=== PATIENT | female | born 1980 | race Caucasian/White ===

== ENCOUNTER 2020-10-09 08:08 | Inpatient (IN) | payer OTHER, SELFPAY ==
[2020-10-09] VITALS (23 sets, daily range): BP systolic 94–117; BP diastolic 50–77; PULSE 86–112; RESP 16–26; TEMP 36.4–36.8; O2SAT 96–100; BMI 32.3
--- NOTE | ~2020-10-09 | US_ITS ---
US right upper quadrant INDICATION: Right upper quadrant abdominal pain PROCEDURE: Realtime right upper abdominal ultrasound. COMPARISON: 07/08/2012 FINDINGS: The pancreas is normal without focal mass or pancreatic ductal dilation. Liver echotexture is diffusely increased, consistent with fatty infiltration. No focal hepatic mass identified. There is normal directional flow in the portal vein. Gallbladder wall is thickened with pericholecystic fluid. No definite gallstones identified. Common bile duct measures 3 mm. IMPRESSION: 1: Thickened gallbladder wall with pericholecystic fluid. No definite gallstones. Consider acalculous cholecystitis in the appropriate clinical setting. 2: Hepatic steatosis. Reviewed, dictated and finalized at location A. IMPRESSION: 1: Thickened gallbladder wall with pericholecystic fluid. No definite gallstone s. Consider acalculous cholecystitis in the appropriate clinical setting. 2: Hepatic steatosis.
--- NOTE | ~2020-10-09 | MR_ITS ---
EXAMINATION: MR MRCP wo con/w 3D wo ind pp DATE: 10/10/2020 17:50 INDICATION: Hyperbilirubinemia. Cirrhosis. TECHNIQUE: Magnetic resonance imaging (MRI) of the abdomen was performed without intravenous contrast . Sequences included coronal T2-weighted SS-FSE, coronal T2-weighted FS SS-FSE, coronal T2-weighted F S FIESTA, axial T2-weighted FS FIESTA, axial T2-weighted FIESTA, sagittal T2-weighted SS-FSE, axial T 1-weighted dual-echo FSPGR, axial T2-weighted SS-FSE, axial T1-weighted LAVA, axial T2-weighted STIR FSE. Thick-slab T2-weighted FRFSE-XL images were obtained for magnetic resonance cholangiopancreatogr aphy (MRCP). Rotating maximum intensity projection 3-D reconstructions of the volumetric data were cr eated by the technologist. COMPARISON: Comparison dated 10/09/[address] dated 03/10/2018 FINDINGS: ABDOMEN MRI: Diffuse hepatic steatosis. Hepatosplenomegaly. The spleen measures 17.5 cm in maximal length. The rig ht hepatic lobe measures 25.6 cm in maximal craniocaudal length. There is mild edematous wall thicken ing of the gallbladder which measures up to 4-5 mm in wall thickness. No gallbladder dilation or chol elithiasis. The pancreas is normal with no pancreatic ductal dilation. Bilateral adrenal glands and k idneys are normal. Visualized bowels are unremarkable with no wall thickening or obstruction. No path ologically enlarged abdominal lymphadenopathy. Mild lumbar levocurvature with mild spondylosis. Lexis l bone marrow signal throughout. ABDOMEN MRCP: Common bile duct measure up to 5 mm in maximal diameter which is normal. No choledocholithiasis. No i ntrahepatic biliary ductal dilation. IMPRESSION: 1. Hepatosplenomegaly with diffuse hepatic steatosis. 2. Gallbladder wall thickening measuring 4-5 mm without evident cholelithiasis/choledocholithiasis li paris related to reported chronic liver disease. This could also result from, renal disease or other g eneralized edema forming states. Differential includes acute cholecystitis although there is no evide nt cholelithiasis or dani gallbladder dilation to more specifically suggest this. Reviewed, dictated and finalized at location A. IMPRESSION: 1. Hepatosplenomegaly with diffuse hepatic steatosis. 2. Gallbladder wall thickening measuring 4-5 mm without evident cholelithiasis/ choledocholithiasis likely related to reported chronic liver disease. This coul d also result from, renal disease or other generalized edema forming states. Di fferential includes acute cholecystitis although there is no evident cholelithi asis or dani gallbladder dilation to more specifically suggest this.
[2020-10-09 08:55] LABS: Basophils Percent Auto 0.4 % (0.2-1.2); Eosinophils Percent Auto 0.1 % (0-4.4); Hematocrit 22.9 % (37.0-47.0); Immature Granulocyte Absolute 0.31 K/mm3 (0.00-0.031); Immature Granulocyte Percent A 2.8 % (0-0.5); Lymphocytes Absolute Auto 1.34 K/mm3 (0.9-3.2); Lymphocytes Percent Auto 12.2 % (18.3-44.2); Mean Corpuscular HGB Conc 29.3 g/dl (32-36); Mean Corpuscular Hemoglobin 30.6 pg (26-34); Mean Corpuscular Volume 104.6 fl (80-100); Mean Platelet Volume 11.2 fl (7.4-10.4); Monocytes Absolute Auto 1.5 K/mm3 (0.1-0.6); Monocytes Percent Auto 13.5 % (2.6-8.5); Neutrophils Absolute Auto 7.8 K/mm3 (1.3-6.7); Nucleated Red Blood Cells Absolute Auto 0.1 K/mm3 (0.0-0.012); Nucleated Red Blood Cells Perc 0.5 % (0.0-0.2); Platelet Count Result 214 k/mm3 (150-375); Red Blood Count 2.19 M/mm3 (4.2-5.4); Red Cell Distribution Width 26.5 % (11.5-14.5)
[2020-10-09 08:57] LABS: Hemoglobin 6.7 g/dL (12.0-15.0)
[2020-10-09 09:01] LABS: Ammonia 57 umol/L (9-30)
[2020-10-09 09:04] LABS: INR 1.3; Prothrombin Time 16.3 Seconds (11.1-14.7)
[2020-10-09 09:28] LABS: Alanine Aminotransferase 54 U/L (4-35); Alkaline Phosphatase 306 U/L (38-126); Anion Gap 19 mmol/L (8-16); Aspartate Amino Transferase 245 U/L (14-36); Bilirubin,Total 24.9 mg/dL (0.2-1.3); Blood Urea Nitrogen 40 mg/dL (7-17); Calcium 8.3 mg/dL (8.4-10.2); Carbon Dioxide 20 mmol/L (22-30); Chloride 98 mmol/L (98-107); Estimated CRCL calculation 33 ml/min; Estimated Glomerular Filt Rate 24; Glucose 107 mg/dL (65-110); Potassium 3.4 mmol/L (3.4-5.0); Sodium 137 mmol/L (137-145)
[2020-10-09] MEDS: ONDANSETRON INJ 4 MG/2 ML VIAL IV PUSH ×2 (10:02→17:46)
[2020-10-09] MEDS: MORPHINE SULFATE (*CRX) 4 MG/ML INJ IV PUSH (10:03)
[2020-10-09] MEDS: PANTOPRAZOLE SODIUM IV 40 MG VIAL 80 MG IV PUSH (10:04)
[2020-10-09] MEDS: SODIUM CHLORIDE 0.9% IV 250 ML 30 ML IV CONT ×2 (10:05→23:59)
--- NOTE | 2020-10-09 10:08 | ED.GIBLEED ---
HPI - GI Bleed General Chief complaint: GI Bleed Stated complaint: gi bleed, jaundice Time Seen by Provider: 10/09/20 08:13 History of Present Illness HPI Narrative: Patient is a 40-year-old female who presents ER with concerns for GI bleed. Reports yesterday she vomited a couple small blood clots. This morning she vomited a large blood clot with some gross blood. She reports has been having dark black stools for last 5 days. She reports prior to this she had drank some alcohol. Since then she has turned yellow. She has known history of liver disease related to hepatitis C. She sees a GI physician at [facility]. Patient denies history of esophageal varices. Patient has been having some epigastric and right upper quadrant pain related to her symptoms. Related Data Home Medications Medication Instructions Recorded Confirmed omeprazole 40 mg capsule,delayed 40 mg PO DAILY 08/25/19 10/09/20 release dicyclomine 10 mg capsule 10 mg PO QID PRN cap 04/25/20 10/09/20 ondansetron 4 mg PO Q6H PRN 10/09/20 10/09/20 Allergies Allergy/AdvReac Type Severity Reaction Status Date / Time Penicillins Allergy Intermediate rash Verified 10/09/20 15:22 Review of Systems Review of Systems: All systems reviewed & are unremarkable except as noted in HPI and below Constitutional: Constitutional: Denies chills, Reports fatigue and Denies fever(s) ENT: Denies nasal congestion and Denies sore throat Cardiovascular: Cardiovascular: Denies chest pain, Denies rapid heart rate and Denies radiating jaw, neck or arm pain Respiratory: Respiratory: Denies cough and Denies dyspnea Gastrointestinal: Gastrointestinal: Reports abdominal pain, Reports nausea and Reports vomiting Comments: Dark black stools, hematemesis. 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 HEAD: Normocephalic, atraumatic. EYES: PERRL and EOMI. scleral icterus noted. ENT: Mucous membranes moist. CHEST: Clear to auscultation. No respiratory distress. HEART: Tachycardic and regular. Normal peripheral pulses. ABDOMEN: Soft, nontender, nondistended. Dark black stool as briskly guaiac positive. No gross blood on BALTAZAR. EXTREMITIES: Normal range of motion. No edema. SKIN: Warm, dry, diffuse jaundice. NEURO: Alert and oriented x3. PSYCH: Normal mood and affect. Course Course Emergency Course: Patient informed of results. She is receiving 2 units of blood. I have discussed the case with Dr. Davis with GI at [facility]. He recommends ultrasound of the gallbladder as well as a EGD. At this time without knowing if patient has varices patient will need to go to the ICU. Dr. Ni accepted to [facility] MICU for Dr. Reagan. Recommends patient receive Rocephin 2 g daily as well as albumin 25% 25 g every 6 hours. Patient is accepted over there and should patient be determined stable for floor they should be contacted as they may be able to find a bed sooner. I discussed the case with Dr. Pacheco and the patient is currently on
[2020-10-09] MEDS: OCTREOTIDE ACETATE 50 MCG/ML VIAL IV PUSH (11:33)
[2020-10-09] MEDS: METOCLOPRAMIDE HCL INJ 10 MG/2 ML VIAL IV PUSH (12:03)
[2020-10-09] MEDS: ALBUMIN HUMAN 25% 25 GM/100 ML 100 ML IVPB ×3 (12:04→23:59)
--- NOTE | 2020-10-09 12:44 | WPDGIPROGNO ---
Progress Note: A&P Additional Plan UGI Bleed->EGD #[id number] Subjective Date/time seen: 10/09/20 12:44 Objective Data Vital Signs Vital Signs: Vital Signs - 24 hr 10/09/20 08:11 10/09/20 09:26 10/09/20 10:09 Temperature 36.6 C 36.7 C Pulse Rate 112 H 110 H 105 H Respiratory Rate 20 20 20 Blood Pressure 110/55 L 107/60 117/53 L Pulse Oximetry 100 100 99 10/09/20 10:12 10/09/20 10:22 10/09/20 10:24 Temperature 36.7 C 36.7 C Pulse Rate 103 H 109 H 109 H Respiratory Rate 20 20 20 Blood Pressure 117/53 L 99/50 L 99/50 L Pulse Oximetry 99 98 98 10/09/20 10:45 10/09/20 11:22 10/09/20 12:07 Temperature 36.8 C Pulse Rate 104 H 105 H 99 Respiratory Rate 20 20 20 Blood Pressure 106/63 103/53 L 113/64 Pulse Oximetry 96 98 100 10/09/20 12:17 10/09/20 12:18 10/09/20 12:32 Temperature 36.6 C 36.6 C Pulse Rate 94 87 98 Respiratory Rate 19 20 20 Blood Pressure 113/64 113/64 101/62 Pulse Oximetry 100 99 100 10/09/20 12:33 Temperature 36.6 C Pulse Rate 91 Respiratory Rate 20 Blood Pressure 101/62 Pulse Oximetry 100 Intake/Output Intake/Output: Intake & Output 10/06/20 10/07/20 10/08/20 10/09/20 23:59 23:59 23:59 23:59 Intake Total 700 Balance 700 Meds/Results Medications: Active Medications Generic Name Dose Route Start Last Admin Trade Name Freq PRN Reason Stop Dose Admin Sodium Chloride 250 mls @ 30 mls/hr 10/09/20 08:57 10/09/20 12:10 Normal Saline Iv IV CONT 10/09/20 17:16 Infused .Q8H20M STA Infusion Pantoprazole Sodium 80 mg/ 500 mls @ 50 mls/hr 10/09/20 09:20 10/09/20 10:45 Dextrose IV CONT 10/09/20 19:19 50 mls/hr .Q10H STA Administration Octreotide Acetate 500 mcg/ 100 mls @ 10 mls/hr 10/09/20 11:00 10/09/20 11:33 Dextrose IV CONT 50 mcg/hr .Q10H SUKHDEV 10 mls/hr Administration 50 MCG/HR Ceftriaxone Sodium 2 gm in 100 mls @ 200 mls/hr 10/10/20 09:00 Rocephin 2 Gm/D5w 100 Ml IVPB DAILY SUKHDEV Albumin Human 100 mls @ 60 mls/hr 10/09/20 12:00 Albutein IVPB Q6HR SUKHDEV Albumin Human 100 mls @ 60 mls/hr 10/09/20 11:34 10/09/20 12:04 Albutein IVPB 10/09/20 13:13 60 mls/hr ONCE ONE Administration Ondansetron HCl 4 mg 10/09/20 12:22 Ondansetron Inj 4 Mg/2 Ml Vial IV PUSH Q4H PRN Nausea Radiology Results: ITS Impressions Upper Quadrant Ultrasound 10/09/20 12:03 IMPRESSION: 1: Thickened gallbladder wall with pericholecystic fluid. No definite gallstones. Consider acalculous cholecystitis in the appropriate clinical setting. 2: Hepatic steatosis. Labs Labs: Laboratory Results - last 24 hr 10/09/20 10/09/20 10/09/20 08:23 08:23 08:23 WBC 11.0 H RBC 2.19 L Hgb 6.7 L* Hct 22.9 L MCV 104.6 H MCH 30.6 MCHC 29.3 L RDW 26.5 H Plt Count 214 MPV 11.2 H Immature Gran % (Auto) 2.8 H Neut % (Auto) 71.0 Lymph % (Auto) 12.2 L [place] % (Auto) 13.5 H Eos % (Auto) 0.1 Baso % (Auto) 0.4 Lymph # (Auto) 1.34 [place] # (Auto) 1.5 H Eos # (Auto) 0.0 Baso # (Auto) 0.0 Abs Immat Gran (auto) 0.31 H Absolute Neuts (auto) 7.8 H Absolute Nucleated RBC 0.1 H Nucleated RBC % 0.5 H PT 16.3 H INR 1.3 APTT 39.0 H Sodium 137 Potassium 3.4 Chloride 98 Carbon Dioxide 20 L Anion Gap 19 H BUN 40 H Creatinine 2.30 H Estim Creat Clear Calc 33 Estimated GFR 24 L Glucose 107 Calcium 8.3 L Total Bilirubin 24.9 H AST 245 H ALT 54 H Alkaline Phosphatase 306 H Ammonia Total Protein 7.0 Albumin 3.0 L Blood Type Antibody Screen Crossmatch 10/09/20 10/09/20 08:23 08:23 WBC RBC Hgb Hct MCV MCH MCHC RDW Plt Count MPV Immature Gran % (Auto) Neut % (Auto) Lymph % (Auto) [place] % (Auto) Eos % (Auto) Baso % (Auto) Lymph # (Auto) [place] # (Auto) Eos # (Auto) Baso # (Auto) Abs Immat Gran
--- NOTE | 2020-10-09 13:30 | WPDANESEPP ---
Anes - Eval Pre Procedure Procedure: Operation Date: 10/09/20 13:20 Proposed Procedures p Esophagogastroduodenoscopy - Ramón Pacheco MD Date/Time: 10/09/20 13:30 Pre Op Diagnosis: gi bleed, jaundice Patient Data Age: 40 Gender: F Height: 1.63 m Weight: 89.5 kg Last Vital Signs Temp 36.6 C 10/09/20 12:33 Pulse 91 10/09/20 12:33 Resp 20 10/09/20 12:33 BP 101/62 10/09/20 12:33 Pulse Ox 100 10/09/20 12:33 Allergies Allergy/AdvReac Type Severity Reaction Status Date / Time Penicillins Allergy Intermediate rash Verified 10/09/20 08:18 Home Medications Medication Instructions Recorded Confirmed Type hydroxyzine HCl 50 mg tablet 50 mg PO TID PRN #90 tablet 05/04/19 Rx diclofenac sodium 50 mg 50 mg PO TID PRN #45 tablet 08/25/19 08/25/19 Rx tablet,delayed release omeprazole 40 mg capsule,delayed 40 mg PO DAILY 08/25/19 History release dicyclomine 10 mg capsule 10 mg PO QID PRN cap 04/25/20 History azithromycin 250 mg tablet See Rx Instructions PO .COMPLEX #6 05/17/20 05/17/20 Rx tablet fluticasone propionate 50 1 spray INTRANASAL DAILY #9.9 ml 05/17/20 05/17/20 Rx mcg/actuation nasal spray,suspension loratadine 10 mg tablet 10 mg PO DAILY PRN #30 tablet 05/17/20 05/17/20 Rx ondansetron 4 mg disintegrating 4 mg PO Q8H PRN #14 tablet 05/17/20 05/17/20 Rx tablet Laboratory Tests 10/09/20 10/09/20 10/09/20 08:23 08:23 08:23 WBC 11.0 K/mm3 H K/mm3 (4.5-10.0) RBC 2.19 M/mm3 L M/mm3 (4.2-5.4) Hgb 6.7 g/dL L* g/dL (12.0-15.0) Hct 22.9 % L % (37.0-47.0) MCV 104.6 fl H fl (80-100) MCH 30.6 pg pg (26-34) MCHC 29.3 g/dl L g/dl (32-36) RDW 26.5 % H % (11.5-14.5) Plt Count 214 k/mm3 k/mm3 (150-375) MPV 11.2 fl H fl (7.4-10.4) Immature Gran % (Auto) 2.8 % H % (0-0.5) Neut % (Auto) 71.0 % % (45.5-73.1) Lymph % (Auto) 12.2 % L % (18.3-44.2) [place] % (Auto) 13.5 % H % (2.6-8.5) Eos % (Auto) 0.1 % % (0-4.4) Baso % (Auto) 0.4 % % (0.2-1.2) Lymph # (Auto) 1.34 K/mm3 K/mm3 (0.9-3.2) [place] # (Auto) 1.5 K/mm3 H K/mm3 (0.1-0.6) Eos # (Auto) 0.0 K/mm3 K/mm3 (0-0.3) Baso # (Auto) 0.0 K/mm3 K/mm3 (0.0-0.1) Abs Immat Gran (auto) 0.31 K/mm3 H K/mm3 (0.00-0.031) Absolute Neuts (auto) 7.8 K/mm3 H K/mm3 (1.3-6.7) Absolute Nucleated RBC 0.1 K/mm3 H K/mm3 (0.0-0.012) Nucleated RBC % 0.5 % H % (0.0-0.2) PT 16.3 Seconds H Seconds (11.1-14.7) INR 1.3 APTT 39.0 SECONDS H SECONDS (22.3-36.8) Sodium 137 mmol/L mmol/L (137-145) Potassium 3.4 mmol/L mmol/L (3.4-5.0) Chloride 98 mmol/L mmol/L (98-107) Carbon Dioxide 20 mmol/L L mmol/L (22-30) Anion Gap 19 mmol/L H mmol/L (8-16) BUN 40 mg/dL H mg/dL (7-17) Creatinine 2.30 mg/dL H mg/dL (0.7-1.0) Estim Creat Clear Calc 33 ml/min ml/min Estimated GFR 24 L (59 - ) Glucose 107 mg/dL mg/dL (65-110) Calcium 8.3 mg/dL L mg/dL (8.4-10.2) Total Bilirubin 24.9 mg/dL H mg/dL (0.2-1.3) AST 245 U/L H U/L (14-36) ALT 54 U/L H U/L (4-35) Alkaline Phosphatase 306 U/L H U/L (38-126) Ammonia Total Protein 7.0 g/dL g/dL (6.3-8.2) Albumin 3.0 g/dL L g/dL (3.5-5.1) Blood Type Antibody Screen Crossmatch 10/09/20 10/09/20 08:23 08:23 WBC RBC Hgb Hct MCV MCH MCHC RDW Plt Count MPV Immature Gran % (Auto) Neut % (Auto) Lymph % (Auto) [place] % (Auto) Eos % (Auto) Bas
--- NOTE | 2020-10-09 13:44 | WPDANESEFPP ---
Anes - Eval Final PreProcedure Day of Procedure 10/09/20 13:44 Patient weight: obese Heart: regular rate and rhythm Lungs: clear to auscultation and normal air movement Airway: Mallampati scale class II Neurological: alert and oriented Last oral intake: >/= 8 hours ASA classification: IV Emergent: yes Anesthetic plan: proceed Anesthesia type and monitoring: general GIVS and standard monitoring Informed Consent: The patient's anesthetic plan and its attendant risks and benefits were discussed with the patient/family/POA. Questions were solicited and answers provided to the satisfaction of the patient/family/POA.
[2020-10-09] MEDS: LACTATED RINGERS 1,000 ML 150 ML IV CONT (13:52)
[2020-10-09] MEDS: EPINEPHrine INJ 1 MG/10 ML SYRINGE 0.4 MG XX (14:00)
--- NOTE | 2020-10-09 14:15 | CONS_ITS ---
DATE OF CONSULTATION: 10/09/2020 HISTORY OF PRESENT ILLNESS: A 40-year-old female seen in the ER room 7 at the request of the ER service. Her primary care provideris Nurse Practitioner, Janene Jasmine. She is followed by [facility] Hepatology [facility]. She carries the diagnoses of alcoholic cirrhosis with ascites, GERD, generalized anxiety disorder, possibly hepatitis C, acute pancreatitis, hypothyroidism, C. diff in March 2008, who was seen in the ER at the request of the ER service. She is seen for the entire visit with her fianceJohn. The patient began having nausea, vomiting approximately 3 days ago, that began as red liquid, but yesterday began having clots. She has chronic constipation, relieved with MiraLAX. She is having right-sided abdominal discomfort. She otherwise denies heartburn, trouble swallowing, loss of appetite or weight, diarrhea, melena, hematochezia, or fever. She has had worsening jaundice with dark urine. No white stools or itching. She has easy bruising. She otherwise denies fever, hot or cold intolerance, chest pain, shortness of breath at rest, hematuria, dysuria, new cough or visual changes, tingling of the skin, bone pain or tremors. No endocarditis risk factors. ALLERGIES: PENICILLIN. MEDICATIONS: Omeprazole, Bentyl, and MiraLAX. SOCIAL HISTORY: Rare alcohol. She states she has had 3 episodes of alcohol use in the last 2 years. Nonsmoker. FAMILY HISTORY: Negative for GI malignancy. PHYSICAL EXAMINATION: GENERAL: Obese female, lying in bed, no apparent distress. She has no lower extremity edema. She does have dark jaundice. No spider angioma or palmar erythema. SKULL: Normocephalic, atraumatic. Pupils are icteric. Oropharynx is clear. NECK: Supple without thyromegaly. LUNGS: Clear to auscultation. HEART: Rate and rhythm regular. S1, S2 normal. ABDOMEN: Normoactive bowel sounds. Soft, right-sided tenderness, nonrigid, nondistended without hepatosplenomegaly or masses. I cannot palpate significant ascites. RECTAL: Deferred. NEUROLOGIC: Conscious and alert x3. LABORATORY DATA: Hemoglobin 7, hematocrit 23, MCV 105, INR 1.3, creatinine 2.3, T-bilirubin 25, alkaline phosphatase 306, AST 245, ALT is 54. Right upper quadrant ultrasound shows gallbladder wall thickening with possible pericholecystic fluid. No stone or sludge. She has steatosis. ASSESSMENT AND PLAN: 1. History of alcoholic cirrhosis with ascites, now has abdominal pain, abnormal LFTs and abnormal imaging of the liver and biliary system. I do not believe, she has acute cholecystitis. She has no significant ascites to tap. She has worsening bilirubin and creatinine. The patient has had evaluation at [facility] and will take observational approach for the moment. 2. Acute blood loss anemia with hematemesis. Certainly concern for upper GI bleed, possibly related to esophageal varices versus gastric ulcers. Apparently, she has history of gastric ulcers. It is not clear, if she has acute bleeding at this time. We will follow H and H and transfuse as needed. Avoid aspirin, nonsteroidals and anticoagulants. IV Protonix and octreotide. We will perform EGD. 3. The procedure of upper endoscopy, its indications alternatives of not doing it and risks including perforation, bleeding, infection, reaction to medication as well as possible need for bladder surgery were reviewed with the patient. She voices understanding and agrees to proceed. Provides informed consent. 4. Gastroesophageal reflux disease, on PPI. 5. Abnormal bowel habits with constipation. Continue MiraLAX. 6. Macrocytosis, likely related to alcohol use. At some point, patient will need B12 and folate. Thank you for allowing me to care for your patient. Further recomm
--- NOTE | 2020-10-09 14:17 | SUR.PHASEII ---
Pt recovered in procedure room 3.
--- NOTE | 2020-10-09 14:20 | P.OP_ITS ---
Procedure Note - Detailed Date of Procedure 10/09/20 Pre-op Diagnosis gi bleed, jaundice Post-op Diagnosis same Procedure Performed EGD Surgeon Ramón Pacheco MD Anesthesia MAC Indications Acute blood loss anemia; hematemesis. Findings Acutely bleeding gastric ulcer. Description of Procedure INDICATION: Acute blood loss anemia; hematemesis. POST-OP:Acutely bleeding gastric ulcer treated with Epi and Gold probe. Gastric biopsies done for GEMMA. SEDATION: Per anesthesia With the patient in the left lateral decubitus position, the Glowing [place] upper endoscope was used to easily intubate the patient?s esophagus and advanced to the third portion of the duodenum. Careful inspection of the mucosa was made upon insertion and withdrawal of the endoscope with retroflexion in the stomach. FINDINGS: Esophagus: SC Jx at 40 cm. Esophagus is normal. No varix, esophagitis, stricture, mass or Lane?s. Stomach: Fundus, body normal. The antrum had an actively bleeding 2 cm white- based ulcer. 4Q injection with 1 cc Epi (4 cc total) then multiple applications of the Gold probe with complete hemostasis. Biopsies taken throughout the stomach. No AVM or malignancy. Duodenum: Normal in the bulb, second and third portion. No complications, blood loss or implants. ASSESSMENT AND PLAN: Acute blood loss anemia; hematemesis: - EGD 10-09-2020 with acutely bleeding gastric ulcer treated with Epi and Gold probe - Gastric biopsies done for GEMMA - Treat H pylori if posive - Care with aspirin, NSAIDS and anticoagulants - Follow-H+H; transfuse prn - Octreotide discontinues - Protonix -> IV Q [address] Nguyen. Further GI recs per [facility] Ramón Pacheco M.D. [phone] Implants None Estimated Blood Loss 0 Pathology other (GEMMA) Complications No immediate complications Condition stable Disposition floor (IMU)
--- NOTE | 2020-10-09 15:24 | ADMGEN ---
This patient, Janene Russell, was admitted to IMU Room 212-01. Patient/family oriented to hospital policies and general routines including ID bracelet, bed and alarms, visiting hours, pain management, procedures, bathroom and other care routines, personal items, smoking policy, room service/diet, and visiting hours. Information on how to activate the Rapid Response Team has been discussed. Patient/Family are encouraged to report perceived risks to care and to ask questions if they do not understand what they are told or what they should do.
--- NOTE | 2020-10-09 17:00 | PM.IMHP ---
H&P: HPI History of Present Illness Date/Time: 10/09/20 17:00 Chief Complaint: Vomiting blood for 3 days. Narrative: This is a 40-year-old female with alcoholic cirrhosis who is followed by the hepatology service at [facility] who presented to the emergency department earlier today via private vehicle from home for evaluation of vomiting blood for 3 days. She has been feeling unwell for approximately 3 days after taking 2 enemas due to ongoing constipation. She had several loose, dark stools thereafter and around the same time she developed nausea and vomiting. Last evening she reports bright red blood in her emesis admixed with clots but she waited until today to come in for evaluation. With further questioning she also mentions worsening jaundice, easy bruising and bleeding, and vague, nondescript right-sided abdominal discomfort over the past 7 days. Transfer was initiated to [facility] through the emergency department however at that time the patient was not stable thus she was taken to the GI lab where she was found to have an acute bleeding ulcer treated with epinephrine and gold probe per Dr. Pacheco. No varices were noted and her octreotide drip was discontinued. She remains on IV Protonix b.i.d. At the time my evaluation she still has some mild discomfort in the right side of her abdomen but nothing significant. She has recently finished her 2nd unit of packed red blood cells and she feels okay. In fact she is a bit hungry. She denies fever, chills, and sweats. No current nausea or vomiting post endoscopy. She has not fully given up drinking alcohol but drinks only a couple of alcohol beverages maybe once a month. She denies aspirin NSAID use. Review of Systems Review of Systems: Twelve systems were reviewed with pertinent positives and negatives as per HPI. She has been feeling a bit lightheaded the last couple of days although no syncope or near syncope. She denies headache. No fever, chills, or sweats. No recent cold or flu symptoms. She denies chest pain and pleuritic pain. No difficulties with urination. She occasionally has epistaxis and gingival bleeding reports longterm quite easily. She started her menstrual cycle today though she denies having any significant heavy periods. Except as documented, all systems were reviewed and are negative. [facility] Past Medical History Medical History (Updated 10/09/20 @ 21:41 by Felisha Babb PA-C) Alcoholic cirrhosis of liver Alcoholic hepatitis with ascites Followed by the hepatology team at [facility]. Anxiety Gastric ulcer (10/09/20) Gastroesophageal reflux Hepatitis C Questionable history of such. History of GI bleed March 2018 and October 2020. Hypothyroidism Surgical History Surgical History (Updated 10/09/20 @ 21:21 by Felisha Babb PA-C) History of laparoscopy For endometriosis. History of tubal ligation Family History Family History (Updated 10/09/20 @ 21:22 by Felisha Babb PA-C) Mother Chronic obstructive pulmonary disease Congestive heart failure Social History Social History (Updated 10/09/20 @ 21:27 by Felisha Babb PA-C) Social History: Patient lives with her fiance and children in [place]. Not currently employed, former [employer]. She does not smoke. She has a history of alcohol abuse but has cut back heavily and now only drinks couple of alcoholic beverages perhaps once a month. no illicit substance use. She designates her fiance, John Emmanuel, as her surrogate decision maker. Code status: Full code. Meds Home Medications and Allergies Home Medications Medication Instructions Recorded Confirmed Type hydroxyzine HCl 50 mg tablet 50 mg PO TID PRN #90 tablet 05/04/19 10/09/20 Rx omeprazole 40 mg capsule,delayed 40 mg PO DAILY 08/25/19 10/09/20 History release dicyclomine 10 mg capsule 10 mg PO QID PRN cap 04/25/20 10/09/20 History ondansetron 4 mg PO Q6H PRN 10/09
[2020-10-09] MEDS: MORPHINE SULFATE (*CRX) 2 MG/ML INJ IV PUSH (18:38)
[2020-10-09] MEDS: PANTOPRAZOLE SODIUM IV 40 MG VIAL IV PUSH (20:41)
[2020-10-09 21:31] LABS: Mean Corpuscular HGB Conc 31.4 g/dl (32-36); Mean Corpuscular Hemoglobin 30.9 pg (26-34); Mean Corpuscular Volume 98.7 fl (80-100); Mean Platelet Volume 10.9 fl (7.4-10.4); Platelet Count Result 113 k/mm3 (150-375); Red Blood Count 2.23 M/mm3 (4.2-5.4); Red Cell Distribution Width 24.8 % (11.5-14.5); White Blood Count 7.5 K/mm3 (4.5-10.0)
[2020-10-09 21:33] LABS: Hemoglobin 6.9 g/dL (12.0-15.0)
[2020-10-09 21:44] LABS: Anion Gap 14 mmol/L (8-16); Blood Urea Nitrogen 48 mg/dL (7-17); Calcium 7.8 mg/dL (8.4-10.2); Carbon Dioxide 23 mmol/L (22-30); Chloride 102 mmol/L (98-107); Creatine Kinase 58 U/L (30-135); Estimated CRCL calculation 32 ml/min; Estimated Glomerular Filt Rate 24; Glucose 88 mg/dL (65-110); Magnesium 1.4 mg/dL (1.6-2.3); Sodium 139 mmol/L (137-145)
[2020-10-10] VITALS (20 sets, daily range): BP systolic 99–132; BP diastolic 45–78; PULSE 78–97; RESP 16–20; TEMP 35.8–36.6; O2SAT 96–100
[2020-10-10] MEDS: TUBING, BLOOD PLUM PUMP TUBING 1 EACH XX
[2020-10-10] MEDS: ONDANSETRON INJ 4 MG/2 ML VIAL IV PUSH ×4 (00:01→14:20)
[2020-10-10 05:15] LABS: Basophils Absolute Auto 0.1 K/mm3 (0.0-0.1); Basophils Percent Auto 0.9 % (0.2-1.2); Eosinophils Percent Auto 0.5 % (0-4.4); Hematocrit 28.2 % (37.0-47.0); Hemoglobin 9.1 g/dL (12.0-15.0); Immature Granulocyte Absolute 0.26 K/mm3 (0.00-0.031); Immature Granulocyte Percent A 4.5 % (0-0.5); Lymphocytes Percent Auto 17.2 % (18.3-44.2); Mean Corpuscular HGB Conc 32.3 g/dl (32-36); Mean Corpuscular Hemoglobin 29.3 pg (26-34); Mean Corpuscular Volume 90.7 fl (80-100); Monocytes Absolute Auto 0.8 K/mm3 (0.1-0.6); Monocytes Percent Auto 14.5 % (2.6-8.5); Neutrophils Absolute Auto 3.6 K/mm3 (1.3-6.7); Neutrophils Percent Auto 62.4 % (45.5-73.1); Nucleated Red Blood Cells Perc 0.5 % (0.0-0.2); Platelet Count Result 108 k/mm3 (150-375); Red Blood Count 3.11 M/mm3 (4.2-5.4); Red Cell Distribution Width 24.2 % (11.5-14.5); White Blood Count 5.8 K/mm3 (4.5-10.0)
[2020-10-10 05:25] LABS: INR 1.3; Prothrombin Time 16.1 Seconds (11.1-14.7)
[2020-10-10 05:26] LABS: Partial Thromboplastin Time 36.4 SECONDS (22.3-36.8)
[2020-10-10 05:31] LABS: Ammonia 44 umol/L (9-30)
[2020-10-10 05:39] LABS: Alanine Aminotransferase 34 U/L (4-35); Albumin Level 3.1 g/dL (3.5-5.1); Alkaline Phosphatase 237 U/L (38-126); Anion Gap 12 mmol/L (8-16); Aspartate Amino Transferase 159 U/L (14-36); Bilirubin,Total 23.4 mg/dL (0.2-1.3); Blood Urea Nitrogen 49 mg/dL (7-17); Calcium 7.9 mg/dL (8.4-10.2); Carbon Dioxide 25 mmol/L (22-30); Chloride 98 mmol/L (98-107); Estimated CRCL calculation 39 ml/min; Estimated Glomerular Filt Rate 30; Glucose 77 mg/dL (65-110); Magnesium 1.5 mg/dL (1.6-2.3); Potassium 2.6 mmol/L (3.4-5.0); Sodium 135 mmol/L (137-145)
[2020-10-10] MEDS: metroNIDAZOLE 500 MG/ISO 100ML 500 MG/100 ML BAG 100 MG IVPB ×4 (05:39→20:16)
[2020-10-10] MEDS: ALBUMIN HUMAN 25% 25 GM/100 ML 100 ML IVPB ×3 (05:39→17:59)
[2020-10-10] MEDS: MORPHINE SULFATE (*CRX) 2 MG/ML INJ IV PUSH ×5 (05:41→20:15)
[2020-10-10 06:13] LABS: Hypochromasia 1+ (NORMAL); Poikilocytosis 1+ (NORMAL); Target Cells 1+ (NORMAL)
[2020-10-10 06:14] LABS: Anisocytosis 1+ (NORMAL)
[2020-10-10] MEDS: POTASSIUM CHLORIDE 20 MEQ TABLET 40 MEQ PO (08:58)
[2020-10-10] MEDS: PANTOPRAZOLE SODIUM IV 40 MG VIAL IV PUSH ×2 (09:08→20:15)
--- NOTE | 2020-10-10 11:10 | PM.CNGS ---
Assessment and Plan Assessment and plan (1) Abnormal gallbladder ultrasound: Code(s): R93.2 - Abnormal findings on diagnostic imaging of liver and biliary tract Status: Acute Assessment and Plan: I have reviewed the ultrasound discussed the patient's treatment with the hospitalist. Her primary reason for hospitalization was the bleeding gastric ulcer which appears to be stable at this time. Due to the recent worsening of the patient's jaundice and the right upper quadrant pain she is experiencing, it would be beneficial to obtain an MRCP to assess for choledocholithiasis or other liver or biliary abnormalities. She does not show any signs of sepsis which would require urgent surgical intervention for her gallbladder. I discussed with the patient and hospitalist that she would not be a surgical candidate for this hospital due to her comorbidities. Surgery would be extremely high risk for decompensation of liver function, major blood loss, or other complications. MRCP will hopefully give us more information on her current symptoms and condition. At that time, decision can be made whether she will be able to be discharged home or may need to be transferred for other intervention at a higher level facility. 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 (3) Acute gastric ulcer: Qualifiers: Gastric ulcer complication status: with hemorrhage Qualified Code(s): K25.0 - Acute gastric ulcer with hemorrhage Code(s): K25.3 - Acute gastric ulcer without hemorrhage or perforation Status: Acute Assessment and Plan: Status post EGD with control of bleeding on 10/09/2020. (4) Acute blood loss anemia: Code(s): D62 - Acute posthemorrhagic anemia Status: Acute Assessment and Plan: Continue monitoring for recurrent GI bleed. Additional Plan Thank you very much for allowing me to aid in the care of this patient. History of Present Illness Consult details Consult date: 10/10/20 Reason for consult: other (Possible cholecystitis) Requesting physician: Felisha Babb PA-C Narrative: This is a 40-year-old woman who presented to the emergency department on 10/09/2020 with an upper GI bleed. I am asked to see her for possible cholecystitis. She underwent EGD with control of bleeding yesterday. She appears hemodynamically stable currently and has not had any more hematemesis or other signs of ongoing GI bleed. She has been complaining of upper abdominal pain specifically on the right upper quadrant for the past week. She has also had a lot of nausea. She has a history of cirrhosis related to hepatitis-C and alcoholism. She has noticed that over the past week she has become more jaundice. She states that she will occasionally become jaundiced but this usually only lasts a day or 2. She has been following a loading rack supervisor at [facility] and states that she has been followed for possibly eventually requiring transplant. She states that she does not typically eat fried food and cannot identify particular food that caused her to began having this pain. She does have a history of ascites and has had paracenteses in the past. She has been evaluated for spontaneous bacterial peritonitis before but she states that cultures were negative. A right upper quadrant ultrasound was performed yesterday and this does show some evidence of gallbladder wall thickening and pericholecystic fluid but no evidence of cholelithiasis. Review of Systems Review of Systems: All systems reviewed & are unremarkable except as noted in HPI and below Constitutional: Constitutional: Denies chills and Denies fever(s) Eyes: Eyes: Denies change i
[2020-10-10 15:02] LABS: Hematocrit 30.3 % (37.0-47.0); Hemoglobin 9.7 g/dL (12.0-15.0)
[2020-10-10] MEDS: MAGNESIUM SULF 2 GM/WATER 50ML 2 GM/50 ML BAG IVPB (15:12)
--- NOTE | 2020-10-10 15:32 | WPDGIPROGNO ---
Progress Note: A&P Assessment and Plan (1) Alcoholic cirrhosis of liver: Qualifiers: Ascites presence: unspecified Qualified Code(s): K70.30 - Alcoholic cirrhosis of liver without ascites Code(s): K70.30 - Alcoholic cirrhosis of liver without ascites Status: Acute Assessment and Plan: will check inr and calculate meld score tomorrow, noted high bilirubin. 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 [facility] (diagnosed with alcoholic cirrhosis about 2 years ago- she says that now only drinking seldom) GB thickening expected in decompensated cirrhosis with alcoholic hepatitis, I do not think that she has acute cholecystitis or choledocholithiasis (normal bile duct in ultrasound) but agree with MRCP to asses nutrition support, thiamine (2) Acute gastric ulcer: Qualifiers: Gastric ulcer complication status: with hemorrhage Qualified Code(s): K25.0 - Acute gastric ulcer with hemorrhage Code(s): K25.3 - Acute gastric ulcer without hemorrhage or perforation Status: Acute Assessment and Plan: treated endoscopically yesterday, continue with iv protonix bid advance diet as tolerated (3) GI bleed: Code(s): K92.2 - Gastrointestinal hemorrhage, unspecified Status: Acute Assessment and Plan: hb stable now, continue to monitor on antibiotics because had active GIB in setting of cirrhosis (4) Acute blood loss anemia: Code(s): D62 - Acute posthemorrhagic anemia Status: Acute (5) Transaminitis: Code(s): R74.01 - Elevation of levels of liver transaminase levels Status: Acute (6) Abnormal gallbladder ultrasound: Code(s): R93.2 - Abnormal findings on diagnostic imaging of liver and biliary tract Status: Acute Assessment and Plan: mrcp pending Subjective Date/time seen: 10/10/20 15:32 Interval history: she says that is feeling much better today, 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 EGD yesterday by Dr Pacheco showed antrum with actively bleeding 2 cm white-based ulcer treated with epi, no varices. Review of Systems Review of Systems: All systems reviewed & are unremarkable except as noted in HPI and below Exam Const: General: ill appearing chronically HENMT: Other: icteric sclerae Eyes: Sclera: scleral abnormality Neck: Neck: supple Resp: Auscultation: clear to auscultation bilaterally Cardio: Rate: regular rate GI: GI Palp: Yes Soft to palpation, Yes Tenderness to palpation present (GI) (mild ttp in ruq, no rebound) and No Guarding due to palpation present (GI) Auscultation: normal bowel sounds Skin: Other: jaundice Neuro: Speech: normal speech Motor exam (neuro): Normal motor muscle tone present throughout Extrem: General: normal to inspection Objective Data Vital Signs Vital Signs: Vital Signs - 24 hr 10/09/20 16:00 10/09/20 18:00 10/09/20 20:00 Temperature 97.9 F Pulse Rate 87 86 88 Respiratory Rate 18 Blood Pressure 94/54 L Pulse Oximetry 100 10/09/20 22:00 10/10/20 00:00 10/10/20 00:07 Temperature 97.7 F Pulse Rate 103 H 97 93 Respiratory Rate 16 Blood Pressure 112/57 L Pulse Oximetry 98 10/10/20 00:24 10/10/20 01:24 10/10/20 02:00 Temperature 97.9 F 97.9 F Pulse Rate 90 97 90 Respiratory Rate 20 20 Blood Pressure 115/60 99/45 L Pulse Oximetry 97 97 10/10/20 02:24 10/10/20 02:35 10/10/20 02:53 Temperature 97 F L 97.9 F 97.9 F Pulse Rate 84 89 89 Respiratory Rate 16 18 20 Blood Pressure 107/47 L 107/56 L 108/50 L Pulse Oximetry 97 97 99 10/10/20 03:35 10/10/20 04:00 10/10/20 08:00 Temperature 97.9 F 97.9 F 96.5 F L Pulse Rate 80 80 92 Respiratory Rate 18 20 16 Blood Pressure 113/73 104/77 113/68 Pulse Oximetry 96 97 98 10/10/20 10:00 10/10/20 12:00 10/10/20 14:00 Temperature 96.7 F L Pulse Rate 85 78 87 Respiratory Rate 18 Blood Pressure 113/64 Pulse Oximetry 98 Intake/Output Intake/Output: Intake & Output 10/07/20 0
[2020-10-10 15:48] LABS: Anion Gap 14 mmol/L (8-16); Blood Urea Nitrogen 41 mg/dL (7-17); Calcium 8.7 mg/dL (8.4-10.2); Carbon Dioxide 23 mmol/L (22-30); Chloride 104 mmol/L (98-107); Estimated CRCL calculation 56 ml/min; Estimated Glomerular Filt Rate 46; Glucose 80 mg/dL (65-110); Potassium 3.4 mmol/L (3.4-5.0); Sodium 141 mmol/L (137-145)
--- NOTE | 2020-10-10 18:41 | PM.IMPN ---
Progress Note: A&P Assessment and Plan (1) GI bleed: Qualifiers: GI bleed type/associated pathology: gastric ulcer Qualified Code(s): K25.4 - Chronic or unspecified gastric ulcer with hemorrhage Code(s): K92.2 - Gastrointestinal hemorrhage, unspecified Status: Acute Assessment and Plan: Appears to have stabilized, will trend hemoglobin daily (2) Alcoholic hepatitis with ascites: Code(s): K70.11 - Alcoholic hepatitis with ascites Status: Acute Assessment and Plan: Longstanding alcohol hepatitis with last 2 years, acute decompensation with ascites and extreme jaundice. Patient following with [facility] hepatology (3) Abnormal gallbladder ultrasound: Code(s): R93.2 - Abnormal findings on diagnostic imaging of liver and biliary tract Status: Acute Assessment and Plan: Discussed with general surgeon that gallbladder surgery would be extremely high risk. We will get MRCP to further evaluate bile ducts to see if choledocholithiasis is a possibility to explain her jaundice however likely explanation is alcohol cirrhosis (4) Macrocytosis: Code(s): D75.89 - Other specified diseases of blood and blood-forming organs Status: Acute Assessment and Plan: Will trend (5) Transaminitis: Code(s): R74.01 - Elevation of levels of liver transaminase levels Status: Acute Assessment and Plan: Will trend (6) Acute gastric ulcer: Qualifiers: Gastric ulcer complication status: with hemorrhage Qualified Code(s): K25.0 - Acute gastric ulcer with hemorrhage Code(s): K25.3 - Acute gastric ulcer without hemorrhage or perforation Status: Acute Assessment and Plan: Status post EGD with cauterization of a 2 cm ulcer treated with epinephrine with no varices. Patient is on PPI and diet is being advanced by gastrology Additional Plan Diet: Clear liquid diet DVT prophylaxis: SCDs with acute bleed GI prophylaxis: Ppi Code status: Full code Disposition: MRCP today, trending hemoglobins for GI bleed which should be stable after cauterization Time Spent With Patient Time with patient: 25 - 35 minutes Subjective Date/time seen: 10/10/20 18:41 patient examined. She is clearly very jaundice and there was some concern for gallbladder pathology on imaging. General surgery evaluated patient and requested MRCP to further evaluate gallbladder pathology considering her significant jaundice for possible choledocholithiasis. She would be very high risk for surgery. Despite this being a possibility she is fairly asymptomatic other than hers significant jaundice. She states she gets jaundice very easily from medication interactions such as antibiotics with her hydroxyzine. 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 We will continue to trend her meld score. Patient denies fever, chills, nausea, vomiting, diarrhea. We are advancing her diet. EGD showed gastric ulcer yesterday and hemoglobin stable. Patient is not lightheaded or dizzy. Review of Systems Review of Systems: All systems reviewed & are unremarkable except as noted in HPI and below Exam Narrative: - GENERAL: Obese female very jaundice and ill-appearing multiple skin lesions throughout. Sitting comfortably in bed - EYES: EOMI. Very icteric sclera - HENT: Moist mucous membranes. - LUNGS: Clear to auscultation bilaterally, no wheezing, rhonchi, or rales. - CARDIOVASCULAR: Regular rate and rhythm. No murmur. No JVD. - ABDOMEN: Soft, distended, right upper quadrant pain on deep palpation. - EXTREMITIES: No edema. Peripheral pulses 2+. Non-tender. - NEUROLOGIC: No focal neurological deficits. CN II-XII grossly intact. - PSYCHIATRIC: Awake, Alert and oriented x 3. Appropriate mood and affect. - SKIN: Extremely jaundiced throughout. - LYMPH: No cervical lymphadenopathy. Objective Data Vital Signs Vital Signs: Vital Signs - 24 hr
[2020-10-11] VITALS (8 sets, daily range): BP systolic 104–130; BP diastolic 63–78; PULSE 75–109; RESP 16–20; TEMP 36.6–37.1; O2SAT 97–100
[2020-10-11] MEDS: ONDANSETRON INJ 4 MG/2 ML VIAL IV PUSH ×6 (00:10→22:18)
[2020-10-11] MEDS: ALBUMIN HUMAN 25% 25 GM/100 ML 100 ML IVPB ×5 (00:10→23:23)
[2020-10-11] MEDS: MORPHINE SULFATE (*CRX) 2 MG/ML INJ IV PUSH ×6 (00:10→22:19)
[2020-10-11] MEDS: metroNIDAZOLE 500 MG/ISO 100ML 500 MG/100 ML BAG 100 MG IVPB (05:13)
[2020-10-11 05:38] LABS: Hematocrit 25.2 % (37.0-47.0); Mean Corpuscular HGB Conc 31.7 g/dl (32-36); Mean Corpuscular Hemoglobin 29.5 pg (26-34); Mean Platelet Volume 11.2 fl (7.4-10.4); Platelet Count Result 92 k/mm3 (150-375); Red Blood Count 2.71 M/mm3 (4.2-5.4); White Blood Count 4.1 K/mm3 (4.5-10.0)
[2020-10-11 05:45] LABS: INR 1.3; Prothrombin Time 16.2 Seconds (11.1-14.7)
[2020-10-11 06:08] LABS: Alanine Aminotransferase 29 U/L (4-35); Albumin Level 3.4 g/dL (3.5-5.1); Alkaline Phosphatase 211 U/L (38-126); Anion Gap 10 mmol/L (8-16); Aspartate Amino Transferase 137 U/L (14-36); Bilirubin,Total 22.8 mg/dL (0.2-1.3); Blood Urea Nitrogen 26 mg/dL (7-17); Calcium 8.6 mg/dL (8.4-10.2); Carbon Dioxide 23 mmol/L (22-30); Chloride 108 mmol/L (98-107); Estimated CRCL calculation 88 ml/min; Estimated Glomerular Filt Rate > 60; Glucose 69 mg/dL (65-110); Magnesium 2.1 mg/dL (1.6-2.3); Potassium 3.2 mmol/L (3.4-5.0); Sodium 141 mmol/L (137-145)
[2020-10-11] MEDS: PANTOPRAZOLE SODIUM IV 40 MG VIAL IV PUSH ×2 (09:01→22:19)
[2020-10-11] MEDS: THIAMINE HCL 100 MG TABLET PO (09:01)
[2020-10-11] MEDS: POTASSIUM CHLORIDE 20 MEQ TABLET 40 MEQ PO ×2 (09:01→17:36)
--- NOTE | 2020-10-11 13:20 | PM.IMPN ---
Progress Note: A&P Assessment and Plan (1) Acute gastric ulcer: Qualifiers: Gastric ulcer complication status: with hemorrhage Qualified Code(s): K25.0 - Acute gastric ulcer with hemorrhage Code(s): K25.3 - Acute gastric ulcer without hemorrhage or perforation Status: Acute Assessment and Plan: Status post EGD with cauterization of a 2 cm ulcer treated with epinephrine with no varices. Patient should continue PPI and be on bland diet. (2) Transaminitis: Code(s): R74.01 - Elevation of levels of liver transaminase levels Status: Acute Assessment and Plan: Likely from acute insult to alcohol cirrhosis. Patient has had counseling for her cirrhosis. Transaminitis downtrending. Evaluated for obstructive cause, open bile ducts. (3) Acute kidney injury: Code(s): N17.9 - Acute kidney failure, unspecified Status: Acute Assessment and Plan: Resolved, normalized (4) Abnormal gallbladder ultrasound: Code(s): R93.2 - Abnormal findings on diagnostic imaging of liver and biliary tract Status: Acute Assessment and Plan: -follow-up MRCP shows gallbladder wall thickening without evidence of cholelithiasis or choledocholithiasis so her jaundice is likely from hepatic failure as opposed to obstructive etiology. At this time there is no indication for surgery, she has clinically improving no sign of acute infection and tolerating p.o.. In the future she may need her gallbladder removed, it would be high risk surgery considering her comorbidities. (5) Alcoholic hepatitis with ascites: Code(s): K70.11 - Alcoholic hepatitis with ascites Status: Acute Assessment and Plan: Meld score 21, suggesting 20% 3 month mortality. Patient will follow-up with her head holder outpatient, she has appointment next month and I discussed she should try to get a sooner appointment. Rocephin for SBP prophylaxis while inpatient (6) Acute blood loss anemia: Code(s): D62 - Acute posthemorrhagic anemia Status: Acute Assessment and Plan: Hemoglobin dropped to 8.0 however she appears to be clinically stable, asymptomatic, will recheck tomorrow morning. Blood loss was from gastric ulcer (7) Acute hypokalemia: Code(s): E87.6 - Hypokalemia Status: Acute Assessment and Plan: Repleating with 80 mEq today. Additional Plan Diet: Advancing diet to bland diet DVT prophylaxis: SCDs with acute bleed GI prophylaxis: Ppi Code status: Full code Disposition: Home if hemoglobin stable, patient will follow-up outpatient with her head holder for liver transplant Time Spent With Patient Time with patient: 25 - 35 minutes Subjective Date/time seen: 10/11/20 13:20 Patient examined. She seems to be doing very well today, denies any fevers, chills, nausea, vomiting, diarrhea. She has mild abdominal pain. She still very jaundice, meld score 21 we discussed in detail the severity of that finding. She will need to follow-up with her head holder for possible liver transplant. We will make sure her bleeding has stabilized that she does not need any more blood. It appears to have, will watch on medical floor. Diet being advanced today. Review of Systems Review of Systems: All systems reviewed & are unremarkable except as noted in HPI and below Exam Narrative: - GENERAL: Obese female very jaundice and chronically ill-appearing multiple skin lesions throughout. Sitting comfortably in bed in no acute distress. - EYES: EOMI. Very icteric sclera - HENT: Moist mucous membranes. - LUNGS: Clear to auscultation bilaterally, no wheezing, rhonchi, or rales. - CARDIOVASCULAR: Regular rate and rhythm. No murmur. No JVD. - ABDOMEN: Soft, distended, right upper quadrant pain on deep palpation. Overall appears improved from yesterday. - EXTREMITIES: No edema. Peripheral pulses 2+. Non-tender. - NEUROLOGIC: No focal neurological deficits. CN II-XII grossly inta
--- NOTE | 2020-10-11 13:23 | PM.PNGS ---
Progress Note: A&P Additional Plan 1. abnormal gallbladder u/s 2. alcoholic cirrhosis 3. Acute gastric ulcer with hemorrhage 4. Acute blood loss anemia Gallbladder findings related to cirrhosis and hepatosplenomegaly. No indications for surgery at this time. She needs to follow up with her grease man at [facility] for continued care of her liver disease. Will sign off. Subjective Subjective Date/Time Seen: 10/11/20 13:23 Interval history: Still having some pain and nausea, but slowly improving and tolerating diet. No hematemesis. Exam GI: GI Palp: Yes Tenderness to palpation present (GI) (RUQ), No Guarding due to palpation present (GI) and No Rebound tenderness present Objective Data Vital Signs Vital Signs: Vital Signs - 24 hr 10/10/20 14:00 10/10/20 16:00 10/10/20 18:00 Temperature 36.1 C L Pulse Rate 87 82 90 Respiratory Rate 16 Blood Pressure 132/78 Pulse Oximetry 100 10/10/20 19:34 10/10/20 20:00 10/10/20 22:00 Temperature 35.9 C L Pulse Rate 94 88 95 Respiratory Rate 18 Blood Pressure 128/77 Pulse Oximetry 99 10/10/20 23:48 10/11/20 00:00 10/11/20 02:00 Temperature 36.6 C Pulse Rate 87 87 75 Respiratory Rate 18 Blood Pressure 111/68 Pulse Oximetry 99 10/11/20 04:00 10/11/20 06:00 10/11/20 08:00 Temperature 36.6 C 37.1 C Pulse Rate 84 75 82 Respiratory Rate 20 16 Blood Pressure 112/63 104/66 Pulse Oximetry 97 97 Intake/Output Intake/Output: Intake & Output 10/08/20 10/09/20 10/10/20 10/11/20 23:59 23:59 23:59 23:59 Intake Total 1450 2580 650 Output Total 500 800 Balance 1450 2080 -150 Meds/Results Medications: Active Medications Generic Name Dose Route Start Last Admin Trade Name Freq PRN Reason Stop Dose Admin Ceftriaxone Sodium 2 gm in 100 mls @ 200 mls/hr 10/10/20 09:00 10/11/20 10:07 Rocephin 2 Gm/D5w 100 Ml IVPB Infused DAILY SUKHDEV Infusion Albumin Human 100 mls @ 60 mls/hr 10/09/20 18:00 10/11/20 13:03 Albutein IVPB 60 mls/hr Q6HR SUKHDEV Administration Morphine Sulfate 2 mg 10/09/20 21:47 10/11/20 13:09 Morphine Sulfate (*Crx) 2 Mg/Ml Inj IV PUSH 2 mg Q4H PRN Administration Pain Rated 7-10 Ondansetron HCl 4 mg 10/09/20 12:22 10/11/20 13:10 Ondansetron Inj 4 Mg/2 Ml Vial IV PUSH 4 mg Q4H PRN Administration Nausea Pantoprazole Sodium 40 mg 10/09/20 21:00 10/11/20 09:01 Pantoprazole Sodium Iv 40 Mg Vial IV PUSH 40 mg Q12HR SUKHDEV Administration Potassium Chloride 40 meq 10/11/20 15:48 Potassium Chloride 20 Meq Tablet PO 10/11/20 15:49 ONCE ONE Thiamine HCl 100 mg 10/11/20 09:00 10/11/20 09:01 Thiamine Hcl 100 Mg Tablet PO 100 mg QAM SUKHDEV Administration Radiology Results: ITS Impressions Upper Quadrant Ultrasound 10/09/20 12:03 IMPRESSION: 1: Thickened gallbladder wall with pericholecystic fluid. No definite gallstones. Consider acalculous cholecystitis in the appropriate clinical setting. 2: Hepatic steatosis. MRCP 10/10/20 18:04 IMPRESSION: 1. Hepatosplenomegaly with diffuse hepatic steatosis. 2. Gallbladder wall thickening measuring 4-5 mm without evident cholelithiasis/choledocholithiasis likely related to reported chronic liver disease. This could also result from, renal disease or other generalized edema forming states. Differential includes acute cholecystitis although there is no evident cholelithiasis or dani gallbladder dilation to more specifically suggest this. Labs Labs: Laboratory Results - last 24 hr 10/10/20 10/10/20 10/10/20 04:55 14:54 14:54 WBC RBC Hgb 9.7 L Hct 30.3 L MCV MCH MCHC RDW Plt Count MPV PT INR Sodium 141 Potassium 3.4 Chloride 104 Carbon Dioxide 23 Anion Gap 14 BUN 41 H Creatinine 1.30 H Estim Creat Clear Calc 56 Estimated GFR 46 L Glucose 80 Calcium 8.7 Magnesium Total Bilirubin AST AL
--- NOTE | 2020-10-11 15:06 | WPDGIPROGNO ---
Progress Note: A&P Assessment and Plan (1) Alcoholic cirrhosis of liver: Qualifiers: Ascites presence: unspecified Qualified Code(s): K70.30 - Alcoholic cirrhosis of liver without ascites Code(s): K70.30 - Alcoholic cirrhosis of liver without ascites Status: Acute Assessment and Plan: MELD 19, renal function normalized now but still significant jaundice. She will need to see her housing development specialist at [facility], she says that already completed counseling and she is supposed to start liver transplant evaluation (diagnosed with alcoholic cirrhosis few years ago ago- she says that now only drinking very seldom) MRCP without bile duct stones of acute GB pathology, findings related to advanced liver disease and hepatitis nutrition support, mvi, thiamine (2) Acute gastric ulcer: Qualifiers: Gastric ulcer complication status: with hemorrhage Qualified Code(s): K25.0 - Acute gastric ulcer with hemorrhage Code(s): K25.3 - Acute gastric ulcer without hemorrhage or perforation Status: Acute Assessment and Plan: treated endoscopically continue with protonix bid advance diet as tolerated (3) GI bleed: Qualifiers: GI bleed type/associated pathology: gastric ulcer Qualified Code(s): K25.4 - Chronic or unspecified gastric ulcer with hemorrhage Code(s): K92.2 - Gastrointestinal hemorrhage, unspecified Status: Acute Assessment and Plan: hb low but relatively stable now on antibiotics because had active GIB in setting of cirrhosis will do EGD in 3 months as outpatient to assess healing (4) Acute blood loss anemia: Code(s): D62 - Acute posthemorrhagic anemia Status: Acute (5) Transaminitis: Code(s): R74.01 - Elevation of levels of liver transaminase levels Status: Acute (6) Abnormal gallbladder ultrasound: Code(s): R93.2 - Abnormal findings on diagnostic imaging of liver and biliary tract Status: Acute Assessment and Plan: mrcp reviewed, no need of surgery Subjective Date/time seen: 10/11/20 15:06 Interval history: dark stool but sample selector, she is eating more and overall better. Review of Systems Review of Systems: All systems reviewed & are unremarkable except as noted in HPI and below Exam Const: General: comfortable and ill appearing chronically Other: obese HENMT: Other: icteric sclerae Eyes: Sclera: scleral abnormality Neck: Neck: supple Resp: Auscultation: clear to auscultation bilaterally Cardio: Rate: regular rate GI: GI Palp: Yes Soft to palpation, Yes Tenderness to palpation present (GI) (mild ttp in ruq, no rebound) and No Guarding due to palpation present (GI) Auscultation: normal bowel sounds Skin: Other: jaundice, spider angioma chest and telangiectasia Neuro: Speech: normal speech Motor exam (neuro): Normal motor muscle tone present throughout Extrem: General: normal to inspection Psych: Affect: normal affect Objective Data Vital Signs Vital Signs: Vital Signs - 24 hr 10/10/20 16:00 10/10/20 18:00 10/10/20 19:34 Temperature 96.9 F L 96.7 F L Pulse Rate 82 90 94 Respiratory Rate 16 18 Blood Pressure 132/78 128/77 Pulse Oximetry 100 99 10/10/20 20:00 10/10/20 22:00 10/10/20 23:48 Temperature 97.9 F Pulse Rate 88 95 87 Respiratory Rate 18 Blood Pressure 111/68 Pulse Oximetry 99 10/11/20 00:00 10/11/20 02:00 10/11/20 04:00 Temperature 97.8 F Pulse Rate 87 75 84 Respiratory Rate 20 Blood Pressure 112/63 Pulse Oximetry 97 10/11/20 06:00 10/11/20 08:00 Temperature 98.7 F Pulse Rate 75 82 Respiratory Rate 16 Blood Pressure 104/66 Pulse Oximetry 97 Intake/Output Intake/Output: Intake & Output 10/08/20 10/09/20 10/10/20 10/11/20 23:59 23:59 23:59 23:59 Intake Total 1450 2580 750 Output Total 500 800 Balance 1450 2080 -50 Meds/Results Medications: Active Medications Generic Name Dose Route Start Last Admin
[2020-10-11 20:17] LABS: Alkaline Phosphatase 210 U/L (38-126); Anion Gap 15 mmol/L (8-16); Blood Urea Nitrogen 14 mg/dL (7-17); Carbon Dioxide 22 mmol/L (22-30); Chloride 102 mmol/L (98-107); Estimated CRCL calculation 99 ml/min; Estimated Glomerular Filt Rate > 60; Glucose 90 mg/dL (65-110); Phosphorus 1.1 mg/dL (2.5-4.5); Potassium 3.5 mmol/L (3.4-5.0); Sodium 139 mmol/L (137-145)
--- NOTE | 2020-10-11 21:45 | P.PNCROSS_ITS ---
Event Note Event Note Event Note: I received a call from the patient's nurse at approximately 19:30 with reports that the patient has intermittent bursts of SVT, typically resolving within about 30 seconds. At around 21:45 I received a phone call that the patient had been running in the 160s to 170s for 4 minutes and there was no improvement with vagal maneuvers. Patient reports feelings of racing heart and dizziness with the tachycardia. Blood pressures were stable. Diltiazem 10 mg IV push given over 1 minute with lutheran of sinus rhythm. EKG pending.
[2020-10-11] MEDS: dilTIAZem HCl INJ 25 MG/5 ML VIAL 10 MG IV PUSH (22:20)
[2020-10-12] VITALS (18 sets, daily range): BP systolic 89–128; BP diastolic 46–73; PULSE 81–109; RESP 16–20; TEMP 36.5–36.8; O2SAT 93–97
--- NOTE | 2020-10-12 00:38 | ECG_ITS ---
Measurements Intervals [place] Rate: 101 P: 19 ME: 144 QRS: 34 QRSD: 78 T: 12 QT: 304 QTc: 395 Interpretive Statements SINUS TACHYCARDIA LOW QRS VOLTAGE IN PRECORDIAL LEADS NONSPECIFIC ST & T-WAVE ABNORMALITY- INFERIOR LEADS BASELINE ARTIFACT- II, III, AVF BORDERLINE ECG Electronically Signed On 10-12-2020 7:43:58 CDT by Surjit Ceja D.O.
--- NOTE | 2020-10-12 00:41 | PC.NURSE ---
Pt flipped into SVT sustaining in the 170s. Spoke with Felisha gave order to push Shonna IV
[2020-10-12] MEDS: ONDANSETRON INJ 4 MG/2 ML VIAL IV PUSH ×4 (04:59→20:17)
[2020-10-12] MEDS: ALBUMIN HUMAN 25% 25 GM/100 ML 100 ML IVPB ×3 (04:59→17:31)
[2020-10-12] MEDS: MORPHINE SULFATE (*CRX) 2 MG/ML INJ IV PUSH ×4 (04:59→20:16)
[2020-10-12 05:19] LABS: Hematocrit 28.7 % (37.0-47.0); Hemoglobin 9.1 g/dL (12.0-15.0); Mean Corpuscular HGB Conc 31.7 g/dl (32-36); Mean Corpuscular Hemoglobin 29.8 pg (26-34); Mean Corpuscular Volume 94.1 fl (80-100); Mean Platelet Volume 10.5 fl (7.4-10.4); Platelet Count Result 92 k/mm3 (150-375); Red Blood Count 3.05 M/mm3 (4.2-5.4); Red Cell Distribution Width 25.4 % (11.5-14.5)
[2020-10-12 05:31] LABS: INR 1.3; Prothrombin Time 15.7 Seconds (11.1-14.7)
[2020-10-12] MEDS: dilTIAZem HCl INJ 25 MG/5 ML VIAL 10 MG IV PUSH (05:32)
--- NOTE | 2020-10-12 05:36 | PC.NURSE ---
pt went into SVT as high as 170s sustained for 9min until cardizem was pushed
[2020-10-12 05:45] LABS: Alanine Aminotransferase 30 U/L (4-35); Albumin Level 4.6 g/dL (3.5-5.1); Alkaline Phosphatase 230 U/L (38-126); Anion Gap 14 mmol/L (8-16); Aspartate Amino Transferase 141 U/L (14-36); Bilirubin,Total 26.5 mg/dL (0.2-1.3); Blood Urea Nitrogen 10 mg/dL (7-17); Calcium 9.5 mg/dL (8.4-10.2); Carbon Dioxide 20 mmol/L (22-30); Chloride 108 mmol/L (98-107); Estimated CRCL calculation 114 ml/min; Estimated Glomerular Filt Rate > 60; Glucose 83 mg/dL (65-110); Potassium 3.9 mmol/L (3.4-5.0); Sodium 142 mmol/L (137-145)
[2020-10-12] MEDS: THIAMINE HCL 100 MG TABLET PO (08:10)
[2020-10-12] MEDS: PANTOPRAZOLE SODIUM IV 40 MG VIAL IV PUSH ×2 (08:10→20:17)
--- NOTE | 2020-10-12 10:34 | ECG_ITS ---
Measurements Intervals [place] Rate: 148 P: 260 MS: 130 QRS: 47 QRSD: 85 T: -84 QT: 332 QTc: 522 Interpretive Statements ECTOPIC ATRIAL TACHYCARDIA LOW QRS VOLTAGE IN LIMB LEADS BORDERLINE T WAVE ABNORMALITY- ANTEROLAT/INF LEADS ABNORMAL ECG Electronically Signed On 10-12-2020 11:16:35 CDT by Surjit Ceja D.O.
[2020-10-12] MEDS: METOPROLOL TARTRATE INJ 5 MG/5 ML VIAL 2.5 MG IV PUSH (10:53)
[2020-10-12 11:24] LABS: Magnesium 1.8 mg/dL (1.6-2.3)
[2020-10-12 11:32] LABS: Troponin I < 0.012 ng/mL (0.000-0.034)
[2020-10-12] MEDS: SODIUM CHLORIDE 0.9% IV 500 ML IV CONT (12:40)
[2020-10-12 13:05] LABS: Lactic Acid Reflex 2.2 mmol/L (0.7-2.1)
--- NOTE | 2020-10-12 13:28 | PM.CNCAR ---
Assessment and Plan Assessment and plan (1) Focal atrial tachycardia determined by electrocardiography: Code(s): I47.1 - Supraventricular tachycardia Status: Acute Assessment and Plan: Recurrent, symptomatic narrow complex long RP tachycardia with negative P-wave inflexion inferior leads with abrupt onset and offset HR generally 140's-150's sometimes precipitated by aberrant PAC RBBB morphology other times narrow complex PAC. This is most likely consistent with Atrial Tachycardia (focal) as opposed to AVRT/AVNRT or ORT which are typically short RP tachycardias. Do not see clear evidence to support atrial flutter. Discussed management options, clinical implications. Conservative medical management, Valsalva maneuvers for termination, as well as AV dread blocking agents for reduction frequency and/or control recurrent arrhythmia discussed at length. Discussed choice of beta blockers given cirrhosis. Initial preferred beta-mega metoprolol tartrate other options include Carvedilol or Nadolol which may have favorable effects in setting of cirrhosis and bleeding risk. Will start with Metoprolol tartrate 25mg po BID and observe tolerance. Continue lunchroom monitor. Discussed at length outpatient referral for ablation for SVT by Electrophysiology in the appropriate context. She expressed desire not to take more medications unless necessary if possible indicting preference for ablation in future. Pt should be stabilized with regard to her current acute critical illness which no doubt has been an additional trigger. Electrolytes stable. 2D echocardiogram may be considered for completeness but may be performed either after transfer or as an outpatient. All questions answered to the patient and her mother's satisfaction who was at bedside. She will require outpatient follow-up and management which we can set up for her upon discharge. (2) Alcoholic cirrhosis of liver: Qualifiers: Ascites presence: unspecified Qualified Code(s): K70.30 - Alcoholic cirrhosis of liver without ascites Code(s): K70.30 - Alcoholic cirrhosis of liver without ascites Status: Acute Assessment and Plan: Pending transfer to [facility]. Management per GI and primary service. (3) Acute gastric ulcer: Qualifiers: Gastric ulcer complication status: with hemorrhage Qualified Code(s): K25.0 - Acute gastric ulcer with hemorrhage Code(s): K25.3 - Acute gastric ulcer without hemorrhage or perforation Status: Acute Assessment and Plan: Status post EGD 10/09/2020 with acute bleeding 2 cm gastric ulcer treated with epi and gold probe. (4) Acute blood loss anemia: Code(s): D62 - Acute posthemorrhagic anemia Status: Acute Assessment and Plan: Status post transfusion 4 units PRBC. History of Present Illness History of Present Illness Consult date/time: Date of service: 10/12/20 13:28 Cardiology consultation at the request of Dr. Lindquist of the [facility] service for opinion regarding recurrent SVT. Requesting physician: Molly Lindquist MD Consult reason: Other (SVT) Reason For Visit: gi bleed, jaundice Narrative: Patient is a 40-year-old female with a history of alcoholic cirrhosis followed by hepatology [facility] who presented to the emergency department with complaints of vomiting blood for 3 days and feeling poorly. Dark stools were noted along with nausea vomiting. Bright red blood mixed with clots was noted in her emesis as well as worsening jaundice. She also min of right-sided abdominal pain. Apparently, transfer was initiated at [facility] through the emergency department however she was not deemed stable enough for transfer and was taken to the GI lab where an acute bleeding gastric ulcer was discovered and treated with epinephrine and gold probe on 10/09/2020. Patient was transfused several units of
[2020-10-12 13:46] LABS: Total Triiodothyronine (T3) 0.48 NG/ML (0.97-1.69)
[2020-10-12 14:46] LABS: Free T4 Free Thyroxine 1.07 ng/mL (0.78-2.19)
[2020-10-12] MEDS: METOPROLOL TARTRATE 25 MG TABLET PO ×2 (15:11→20:15)
--- NOTE | 2020-10-12 15:23 | WPDGIPROGNO ---
Progress Note: A&P Assessment and Plan (1) Alcoholic cirrhosis of liver: Qualifiers: Ascites presence: unspecified Qualified Code(s): K70.30 - Alcoholic cirrhosis of liver without ascites Code(s): K70.30 - Alcoholic cirrhosis of liver without ascites Status: Acute Assessment and Plan: MELD 22 now with normal renal function withl significant jaundice. 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 bid advance diet as tolerated egd in 3 months to assess for healing (3) GI bleed: Qualifiers: GI bleed type/associated pathology: gastric ulcer Qualified Code(s): K25.4 - Chronic or unspecified gastric ulcer with hemorrhage Code(s): K92.2 - Gastrointestinal hemorrhage, unspecified Status: Acute Assessment and Plan: hb low but stable on antibiotics because had active GIB in setting of cirrhosis (4) Acute blood loss anemia: Code(s): D62 - Acute posthemorrhagic anemia Status: Acute Assessment and Plan: stable (5) Transaminitis: Code(s): R74.01 - Elevation of levels of liver transaminase levels Status: Acute (6) Abnormal gallbladder ultrasound: Code(s): R93.2 - Abnormal findings on diagnostic imaging of liver and biliary tract Status: Acute Assessment and Plan: mrcp reviewed, no need of surgery Subjective Date/time seen: 10/12/20 15:23 Interval history: she had episode of SVT yesterday and symptomatic, now she is doing better. 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 Review of Systems Review of Systems: All systems reviewed & are unremarkable except as noted in HPI and below Exam Const: General: comfortable and ill appearing chronically Other: obese HENMT: Other: icteric sclerae Eyes: Sclera: scleral abnormality Neck: Neck: supple Resp: Auscultation: clear to auscultation bilaterally Cardio: Rate: regular rate GI: GI Palp: Yes Soft to palpation, Yes Tenderness to palpation present (GI) (mild ttp in ruq, no rebound) and No Guarding due to palpation present (GI) Auscultation: normal bowel sounds Skin: Other: jaundice, spider angioma chest and telangiectasia Neuro: Speech: normal speech Motor exam (neuro): Normal motor muscle tone present throughout Extrem: General: normal to inspection Psych: Affect: normal affect Objective Data Vital Signs Vital Signs: Vital Signs - 24 hr 10/11/20 16:00 10/11/20 20:00 10/11/20 23:45 Temperature 97.9 F 98.0 F 97.9 F Pulse Rate 94 97 99 Respiratory Rate 16 20 20 Blood Pressure 118/69 130/74 129/78 Pulse Oximetry 100 100 98 10/12/20 00:00 10/12/20 00:40 10/12/20 02:00 Temperature Pulse Rate 100 94 Respiratory Rate Blood Pressure 128/73 Pulse Oximetry 10/12/20 04:00 10/12/20 06:00 10/12/20 08:00 Temperature 97.7 F Pulse Rate 93 95 104 H Respiratory Rate 16 Blood Pressure 89/60 L Pulse Oximetry 95 10/12/20 10:00 10/12/20 11:04 10/12/20 11:08 Temperature Pulse Rate 109 H Respiratory Rate Blood Pressure 119/68 Pulse Oximetry 93 10/12/20 12:00 10/12/20 15:11 Temperature Pulse Rate 103 H 92 Respiratory Rate Blood Pressure Pulse Oximetry Intake/Output Intake/Output: Intake & Output 10/09/20 10/10/20 10/11/20 10/12/20 23:59 23:59 23:59 23:59 Intake Total 1450 2580 1590 1140 Output Total 500 1050 1400 Balance 1450 2080 54
[2020-10-12 15:49] LABS: Reflex Lactic Acid Yes or No Add Lactic
[2020-10-12 16:44] LABS: Lactic Acid 1.9 mmol/L (0.7-2.1)
[2020-10-12 17:54] LABS: HAV RESULT Negative (Negative); Hepatitis B Core IgM Result Negative (Negative)
[2020-10-12 17:56] LABS: Hepatitis B Surface Antigen Negative (Negative)
[2020-10-12 18:06] LABS: Hepatitis C Virus Antibody Negative (Negative)
--- NOTE | 2020-10-12 19:42 | PM.IMPN ---
Progress Note: A&P Assessment and Plan (1) Focal atrial tachycardia determined by electrocardiography: Code(s): I47.1 - Supraventricular tachycardia Status: Acute (2) Alcoholic cirrhosis of liver: Qualifiers: Ascites presence: unspecified Qualified Code(s): K70.30 - Alcoholic cirrhosis of liver without ascites Code(s): K70.30 - Alcoholic cirrhosis of liver without ascites Status: Acute (3) Macrocytosis: Code(s): D75.89 - Other specified diseases of blood and blood-forming organs Status: Acute (4) Transaminitis: Code(s): R74.01 - Elevation of levels of liver transaminase levels Status: Acute (5) Acute kidney injury: Code(s): N17.9 - Acute kidney failure, unspecified Status: Acute (6) Abnormal gallbladder ultrasound: Code(s): R93.2 - Abnormal findings on diagnostic imaging of liver and biliary tract Status: Acute (7) Alcoholic hepatitis with ascites: Code(s): K70.11 - Alcoholic hepatitis with ascites Status: Acute (8) GI bleed: Qualifiers: GI bleed type/associated pathology: gastric ulcer Qualified Code(s): K25.4 - Chronic or unspecified gastric ulcer with hemorrhage Code(s): K92.2 - Gastrointestinal hemorrhage, unspecified Status: Acute (9) Acute gastric ulcer: Qualifiers: Gastric ulcer complication status: with hemorrhage Qualified Code(s): K25.0 - Acute gastric ulcer with hemorrhage Code(s): K25.3 - Acute gastric ulcer without hemorrhage or perforation Status: Acute (10) Acute blood loss anemia: Code(s): D62 - Acute posthemorrhagic anemia Status: Acute (11) BMI 35.0-35.9,adult: Code(s): Z68.35 - Body mass index [BMI] 35.0-35.9, adult Status: Chronic (12) Lactic acid acidosis: Code(s): E87.2 - Acidosis Status: Acute (13) High anion gap metabolic acidosis: Code(s): E87.2 - Acidosis Status: Acute (14) Hypothyroidism: Code(s): E03.9 - Hypothyroidism, unspecified Status: Acute Additional Plan Patient refusing transfer to [facility] Bilirubin continues to stay elevated IV ceftriaxone discontinued. P.o. Cipro 500 b.i.d. has been initiated Continued anion gap metabolic acidosis Lactic acid down trending Elevated TSH T3 is also noted to be decreased; there is a potential of acute contributing to these findings; we recommend patient rechecking thyroid levels in 3-4 weeks Atrial tachycardia, Cardiology about on board, metoprolol started, echo ordered Possible discharge tomorrow Subjective Date/time seen: 10/12/20 19:42 40-year-old female with past medical history significant for alcoholic cirrhosis, hepatitis-C, who follows up with [facility] hepatology service presented with hematemesis for 3 days. She is being managed as a case of upper GI bleed secondary to bleeding ulcer. She was treated with emergent EGD requiring cauterization with epinephrine and gold probe per GI. During the course of her stay she was noted to develop significant jaundice with significantly elevated bilirubin levels. This was evaluated by MRCP and ultrasound of bladder, which did not reveal any significant findings. She also received PRBC transfusion for acute on chronic blood loss anemia during her hospitalization. Patient received IV ceftriaxone for SBP prophylaxis since 10/10, which was discontinued on 10/12. This is now being replaced by p.o. Cipro 500 b.i.d. A.m. of 811 patient was also noted to be tachycardic significantly to 150s with feeling of palpitations. Cardiology was brought on board and patient was started on metoprolol Patient was also accepted to be transferred to [facility], a process that was initiated when the patient had arrived in the ED. Patient is however, now declining to be transferred as she says she has an outpatient appointment already set up. Review of Systems Review of Systems: Ten point review of systems conducted was
[2020-10-12] MEDS: CIPROFLOXACIN 500 MG TAB PO (20:15)
[2020-10-13] VITALS (9 sets, daily range): BP systolic 97–113; BP diastolic 52–66; PULSE 83–105; RESP 16–20; TEMP 36.7–37; O2SAT 93–96
--- NOTE | 2020-10-13 | ECHO_ITS ---
Patient Info Name: Janene Russell Age: 40 years : 1980 Gender: Female Ht: 64 in Wt: 187 lbs BSA: 1.99 m2 Heart Rhythm: Sinus Rhythm Exam Date: 10/13/2020 10:28 AM Exam Location: [facility] Patient Status: Inpatient Admit Date: 10/11/2020 Staff Ordering Physician: Suhail Leos MD Attending Provider: Molly Lindquist MD Referring Physician: Deric TAVERA; Exam Type: CA echo doppler color flow Summary 1. Left ventricular chamber size, systolic and diastolic function are normal with no regional wall motion abnormalities with an estimated ejection fraction of >70%. Borderline LVH. 2. Right ventricular chamber dimension is mildly enlarged with normal systolic function.. 3. Left atrial chamber dimension is mildly enlarged. 4. Mild pulmonary hypertension, estimated pulmonary arterial systolic pressure is 47 mmHg. 5. There is trace tricuspid and mitral valve regurgitation. 6. Normal sinus rhythm. Left Ventricle Left ventricular chamber dimension is normal. Left ventricular systolic function is normal, estimated at >70%. There is no increased left ventricular wall thickness. Left ventricular septal wall motion is normal. The left ventricular diastolic function is normal. Left ventricular chamber size, systolic and diastolic function are normal with no regional wall motion abnormalities with an estimated ejection fraction of >70%. Borderline LVH. Right Ventricle Right ventricular chamber dimension is mildly enlarged with normal systolic function.. Right ventricular systolic function is normal. Left Atria Left atrial chamber dimension is mildly enlarged. Right Atria Right atrial chamber dimension is normal. Aortic Valve The aortic valve is trileaflet. There is no aortic valve sclerosis. There is no aortic valve stenosis. There is no aortic valve regurgitation. Pulmonic Valve The pulmonic valve is normal. There is no pulmonic valve stenosis. There is no pulmonic regurgitation. Mitral Valve The mitral valve has normal leaflets. There is no mitral valve stenosis. There is trace mitral valve regurgitation. Tricuspid Valve The tricuspid valve leaflets are normal. There is no significant tricuspid valve stenosis. There is trace tricuspid and mitral valve regurgitation. Mild pulmonary hypertension, estimated pulmonary arterial systolic pressure is 47 mmHg. Pericardium/Pleural The pericardium appears normal. There is no pericardial effusion. Inferior Vena Cava Normal inferior vena cava with >50% collapse upon inspiration consistent with Empty right atrial pressure, 10 mmHg. Aorta The aortic root size at the sinus of Valsalva is normal. The prox ascending aorta size is normal. Left Ventricular Outflow Tract Name Value Normal LVOT 2D LVOT Diameter 2.2 cm LVOT Doppler LVOT Peak Gradient 8 mmHg LVOT Mean Gradient 4 mmHg LVOT VTI 28 cm LVOT VTI/AV VTI Ratio 1.1 LVOT Stroke Volume 107 ml LVOT CO 21.7 l/min
[2020-10-13] MEDS: ONDANSETRON INJ 4 MG/2 ML VIAL IV PUSH ×5 (01:13→17:20)
[2020-10-13] MEDS: MORPHINE SULFATE (*CRX) 2 MG/ML INJ IV PUSH ×5 (01:13→17:19)
[2020-10-13] MEDS: ALBUMIN HUMAN 25% 25 GM/100 ML 100 ML IVPB ×3 (01:20→13:09)
[2020-10-13 05:13] LABS: Basophils Absolute Auto 0.1 K/mm3 (0.0-0.1); Basophils Percent Auto 0.8 % (0.2-1.2); Eosinophils Percent Auto 0.3 % (0-4.4); Hematocrit 25.2 % (37.0-47.0); Hemoglobin 7.8 g/dL (12.0-15.0); Immature Granulocyte Absolute 0.17 K/mm3 (0.00-0.031); Immature Granulocyte Percent A 2.3 % (0-0.5); Immature Platelet Fraction Pct 8.8 % (0.9-11.2); Lymphocytes Absolute Auto 0.92 K/mm3 (0.9-3.2); Lymphocytes Percent Auto 12.2 % (18.3-44.2); Mean Corpuscular Hemoglobin 29.7 pg (26-34); Mean Corpuscular Volume 95.8 fl (80-100); Mean Platelet Volume 11.1 fl (7.4-10.4); Monocytes Absolute Auto 1.3 K/mm3 (0.1-0.6); Monocytes Percent Auto 16.6 % (2.6-8.5); Neutrophils Absolute Auto 5.1 K/mm3 (1.3-6.7); Neutrophils Percent Auto 67.8 % (45.5-73.1); Platelet Count Result 106 k/mm3 (150-375); Red Blood Count 2.63 M/mm3 (4.2-5.4); Red Cell Distribution Width 25.6 % (11.5-14.5); White Blood Count 7.5 K/mm3 (4.5-10.0)
[2020-10-13 05:25] LABS: INR 1.5; Prothrombin Time 17.5 Seconds (11.1-14.7)
[2020-10-13 05:31] LABS: Lactic Acid Reflex 1.7 mmol/L (0.7-2.1)
[2020-10-13 05:37] LABS: Alanine Aminotransferase 24 U/L (4-35); Albumin Level 4.3 g/dL (3.5-5.1); Alkaline Phosphatase 153 U/L (38-126); Anion Gap 14 mmol/L (8-16); Aspartate Amino Transferase 107 U/L (14-36); Bilirubin Direct 14.5 mg/dL (0-0.3); Bilirubin Indirect 3.2 mg/dL (0-1.1); Blood Urea Nitrogen 6 mg/dL (7-17); Calcium 9.1 mg/dL (8.4-10.2); Carbon Dioxide 19 mmol/L (22-30); Chloride 107 mmol/L (98-107); Estimated CRCL calculation 134 ml/min; Estimated Glomerular Filt Rate > 60; Glucose 90 mg/dL (65-110); Potassium 3.7 mmol/L (3.4-5.0); Sodium 140 mmol/L (137-145)
[2020-10-13] MEDS: THIAMINE HCL 100 MG TABLET PO (08:44)
[2020-10-13] MEDS: PANTOPRAZOLE SODIUM IV 40 MG VIAL IV PUSH (08:44)
[2020-10-13] MEDS: METOPROLOL TARTRATE 25 MG TABLET PO (08:44)
[2020-10-13] MEDS: CIPROFLOXACIN 500 MG TAB PO (08:44)
--- NOTE | 2020-10-13 09:13 | ECG_ITS ---
Measurements Intervals [place] Rate: 82 P: 18 MI: 140 QRS: 42 QRSD: 84 T: 10 QT: 383 QTc: 449 Interpretive Statements SINUS RHYTHM BORDERLINE ST-T WAVE ABNORMALITY- INF/LAT LEADS BORDERLINE ECG Electronically Signed On 10-13-2020 9:58:57 CDT by Surjit Ceja D.O.
--- NOTE | 2020-10-13 14:23 | PM.PNCARD ---
Progress Note: A&P Assessment and Plan (1) Focal atrial tachycardia determined by electrocardiography: Code(s): I47.1 - Supraventricular tachycardia <STAR Boyd - Last Filed: 10/13/20 15:47> Status: Acute <STAR Boyd - Last Filed: 10/13/20 15:47> Assessment and Plan: Recurrent, symptomatic narrow complex long RP tachycardia with negative P-wave inflexion inferior leads with abrupt onset and offset HR generally 140's-150's sometimes precipitated by aberrant PAC RBBB morphology other times narrow complex PAC. This is most likely consistent with Atrial Tachycardia (focal) as opposed to AVRT/AVNRT or ORT which are typically short RP tachycardias. Do not see clear evidence to support atrial flutter. Discussed management options, clinical implications. Conservative medical management, Valsalva maneuvers for termination, as well as AV dread blocking agents for reduction frequency and/or control recurrent arrhythmia discussed at length. Discussed choice of beta blockers given cirrhosis. Initial preferred beta-mega metoprolol tartrate other options include Carvedilol or Nadolol which may have favorable effects in setting of cirrhosis and bleeding risk. -Continue metoprolol 25mg PO BID -Outpatient referral to EP for consideration for SVT ablation -Outpatient follow up in our office <STAR Boyd - Last Filed: 10/13/20 15:47> (2) Alcoholic cirrhosis of liver: Qualifiers: Ascites presence: unspecified Qualified Code(s): K70.30 - Alcoholic cirrhosis of liver without ascites <STAR Boyd - Last Filed: 10/13/20 15:47> Code(s): K70.30 - Alcoholic cirrhosis of liver without ascites <STAR Boyd - Last Filed: 10/13/20 15:47> Status: Acute <STAR Boyd - Last Filed: 10/13/20 15:47> Assessment and Plan: Pending transfer to [facility]. Management per GI and primary service. <STAR Boyd - Last Filed: 10/13/20 15:47> (3) Acute gastric ulcer: Qualifiers: Gastric ulcer complication status: with hemorrhage Qualified Code(s): K25.0 - Acute gastric ulcer with hemorrhage <STAR Boyd - Last Filed: 10/13/20 15:47> Code(s): K25.3 - Acute gastric ulcer without hemorrhage or perforation <STAR Boyd - Last Filed: 10/13/20 15:47> Status: Acute <STAR Boyd - Last Filed: 10/13/20 15:47> Assessment and Plan: Status post EGD 10/09/2020 with acute bleeding 2 cm gastric ulcer treated with epi and gold probe. <STAR Boyd - Last Filed: 10/13/20 15:47> (4) Acute blood loss anemia: Code(s): D62 - Acute posthemorrhagic anemia <STAR Boyd - Last Filed: 10/13/20 15:47> Status: Acute <STAR Boyd - Last Filed: 10/13/20 15:47> Assessment and Plan: Status post transfusion 4 units PRBC. <STAR Boyd - Last Filed: 10/13/20 15:47> Additional Plan Attending addendum: I agree with the above documentation and plan of care as outlined above. Continue medical therapy for now. Outpatient referral to electrophysiology. <Suhail Leos MD - Last Filed: 10/13/20 17:18> Subjective Date/time seen: 10/13/20 14:24 <STAR Boyd - Last Filed: 10/13/20 15:47> Interval history: Cardiology follow up for SVT Date of service 10/13/2020: She is feeling better today but did have a symptomatic episode of SVT this morning. She says she felt palpitations and became nauseous. Telemetry shows HR in the 150's during this episode. Had several occurrences of SVT overnight as well. <STAR Boyd - Last Filed: 10/13/20 15:47> Review of Systems Review of Systems: All systems reviewed & are unremarkable except as noted in HPI and below <Kait Richards APN-C - Last Filed: 10/13/20 15:47> Constitutional: Constitut
--- NOTE | 2020-10-13 14:40 | PM.IMPN ---
Progress Note: A&P Assessment and Plan (1) Hypothyroidism: Qualifiers: Hypothyroidism type: unspecified Qualified Code(s): E03.9 - Hypothyroidism, unspecified Code(s): E03.9 - Hypothyroidism, unspecified Status: Acute (2) High anion gap metabolic acidosis: Code(s): E87.2 - Acidosis Status: Acute (3) Lactic acid acidosis: Code(s): E87.2 - Acidosis Status: Acute (4) Focal atrial tachycardia determined by electrocardiography: Code(s): I47.1 - Supraventricular tachycardia Status: Acute (5) Alcoholic cirrhosis of liver: Qualifiers: Ascites presence: unspecified Qualified Code(s): K70.30 - Alcoholic cirrhosis of liver without ascites Code(s): K70.30 - Alcoholic cirrhosis of liver without ascites Status: Acute (6) Macrocytosis: Code(s): D75.89 - Other specified diseases of blood and blood-forming organs Status: Acute (7) Transaminitis: Code(s): R74.01 - Elevation of levels of liver transaminase levels Status: Acute (8) GI bleed: Qualifiers: GI bleed type/associated pathology: gastric ulcer Qualified Code(s): K25.4 - Chronic or unspecified gastric ulcer with hemorrhage Code(s): K92.2 - Gastrointestinal hemorrhage, unspecified Status: Acute (9) Acute gastric ulcer: Qualifiers: Gastric ulcer complication status: with hemorrhage Qualified Code(s): K25.0 - Acute gastric ulcer with hemorrhage Code(s): K25.3 - Acute gastric ulcer without hemorrhage or perforation Status: Acute (10) Acute blood loss anemia: Code(s): D62 - Acute posthemorrhagic anemia Status: Acute (11) Anxiety: Code(s): F41.9 - Anxiety disorder, unspecified Status: Acute (12) BMI 35.0-35.9,adult: Code(s): Z68.35 - Body mass index [BMI] 35.0-35.9, adult Status: Chronic (13) Nicotine dependence in remission: Qualifiers: Nicotine product type: other Qualified Code(s): F17.291 - Nicotine dependence, other tobacco product, in remission Code(s): F17.201 - Nicotine dependence, unspecified, in remission Status: Chronic (14) ADAMA (generalized anxiety disorder): Code(s): F41.1 - Generalized anxiety disorder Status: Chronic (15) Hyperbilirubinemia: Code(s): E80.6 - Other disorders of bilirubin metabolism Status: Acute (16) Acute alcoholic hepatitis: Code(s): K70.10 - Alcoholic hepatitis without ascites Status: Acute Additional Plan Severe alcoholic hepatitis: Continues to have elevated bilirubin MDF score of 49 Meld-Na score of 23 Fermin alcoholic hepatitis core of 7 Will start patient on prednisone 40 mg daily to complete a course of 28 days and then will taper patient off slowly over 16 days Will need to get Apolinar score calculated for response to therapy Patient follow-up as outpatient Continue timeline, folic acid, pyridoxine PPI b.i.d. Acute blood loss anemia: Patient had a 2 point drop of hemoglobin this morning Will check H&H now, and transfuse if continues to follow-up Atrial tachycardia: Being followed by Cardiology Metoprolol was started yesterday 10/12 However patient had prolonged episode of tachycardia earlier in the morning 10/13 Await Cardiology recommendations Cardiology and initially advised against an inpatient echo It is reported as per Cardiology documentation that the patient might need outpatient ablation Hypotension: Given patient's concern with acute blood loss anemia and continued tachycardia, hemoglobin level will be checked now and patient will possibly require transfusion if it continues to fall further Will add midodrine 5 mg b.i.d. in the hopes of bringing blood pressure up and also helping the heart rate Subjective Date/time seen: 10/13/20 14:40 40-year-old female with past medical history significant for alcoholic cirrhosis, hepatitis-C, who cindy
[2020-10-13 15:40] LABS: Hematocrit 27.4 % (37.0-47.0); Hemoglobin 8.3 g/dL (12.0-15.0)
--- NOTE | 2020-10-13 16:28 | PM.DS ---
DS: Admitting Diagnosis Admitting Diagnosis Alcoholic hepatitis DS: Discharge Diagnosis Discharge Diagnosis (1) Acute alcoholic hepatitis: Code(s): K70.10 - Alcoholic hepatitis without ascites Status: Acute (2) Hyperbilirubinemia: Code(s): E80.6 - Other disorders of bilirubin metabolism Status: Acute (3) Hypothyroidism: Qualifiers: Hypothyroidism type: unspecified Qualified Code(s): E03.9 - Hypothyroidism, unspecified Code(s): E03.9 - Hypothyroidism, unspecified Status: Acute (4) High anion gap metabolic acidosis: Code(s): E87.2 - Acidosis Status: Acute (5) Lactic acid acidosis: Code(s): E87.2 - Acidosis Status: Acute (6) Focal atrial tachycardia determined by electrocardiography: Code(s): I47.1 - Supraventricular tachycardia Status: Acute (7) Acute hypokalemia: Code(s): E87.6 - Hypokalemia Status: Acute (8) Alcoholic cirrhosis of liver: Qualifiers: Ascites presence: unspecified Qualified Code(s): K70.30 - Alcoholic cirrhosis of liver without ascites Code(s): K70.30 - Alcoholic cirrhosis of liver without ascites Status: Acute (9) Macrocytosis: Code(s): D75.89 - Other specified diseases of blood and blood-forming organs Status: Acute (10) Transaminitis: Code(s): R74.01 - Elevation of levels of liver transaminase levels Status: Acute (11) Acute kidney injury: Code(s): N17.9 - Acute kidney failure, unspecified Status: Acute (12) Abnormal gallbladder ultrasound: Code(s): R93.2 - Abnormal findings on diagnostic imaging of liver and biliary tract Status: Acute (13) Alcoholic hepatitis with ascites: Code(s): K70.11 - Alcoholic hepatitis with ascites Status: Acute (14) GI bleed: Qualifiers: GI bleed type/associated pathology: gastric ulcer Qualified Code(s): K25.4 - Chronic or unspecified gastric ulcer with hemorrhage Code(s): K92.2 - Gastrointestinal hemorrhage, unspecified Status: Acute (15) Anxiety: Code(s): F41.9 - Anxiety disorder, unspecified Status: Acute (16) Acute blood loss anemia: Code(s): D62 - Acute posthemorrhagic anemia Status: Acute (17) Allergies: Code(s): T78.40XA - Allergy, unspecified, initial encounter Status: Acute (18) Nicotine dependence in remission: Qualifiers: Nicotine product type: other Qualified Code(s): F17.291 - Nicotine dependence, other tobacco product, in remission Code(s): F17.201 - Nicotine dependence, unspecified, in remission Status: Chronic (19) Hypothyroidism: Code(s): E03.9 - Hypothyroidism, unspecified Status: Chronic (20) ADAMA (generalized anxiety disorder): Code(s): F41.1 - Generalized anxiety disorder Status: Chronic DS: Summary Hospital Course Reason for hospitalization: Alcoholic hepatitis Hospital Course: 40-year-old female with past medical history significant for alcoholic cirrhosis, hepatitis-C, who follows up with [facility] hepatology service presented with hematemesis for 3 days. She is being managed as a case of upper GI bleed secondary to bleeding ulcer. She was treated with emergent EGD requiring cauterization with epinephrine and gold probe per GI. During the course of her stay she was noted to develop significant jaundice with significantly elevated bilirubin levels. This has been attributed to severe alcoholic hepatitis. Hyperbilirubinemia was evaluated by MRCP and ultrasound of bladder, which did not reveal any significant findings. She also received PRBC transfusion for acute on chronic blood loss anemia during her hospitalization. Patient received IV ceftriaxone for SBP prophylaxis since 10/10, which was discontinued on 10/12. This is now being replaced by p.o. Cipro 500 b.i.d. A.m. of 10/12 patient was also noted to be tachycardic significantly to 150s
[2020-10-13] MEDS: MIDODRINE HCL 2.5 MG TABLET 5 MG PO (17:10)
[2020-10-13] MEDS: predniSONE 20 MG TABLET 40 MG PO (17:11)
--- NOTE | 2020-10-13 17:48 | WPDGIPROGNO ---
Progress Note: A&P Assessment and Plan (1) Alcoholic cirrhosis of liver: Qualifiers: Ascites presence: unspecified Qualified Code(s): K70.30 - Alcoholic cirrhosis of liver without ascites Code(s): K70.30 - Alcoholic cirrhosis of liver without ascites Status: Acute Assessment and Plan: MELD 23 now with normal renal function but still significant jaundice, overall no major changes. 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 and did not want to get transfer (denies h/o recent excessive etoh use, acetaminophen), hepatitis panel negative. MRCP without bile duct stones of acute GB pathology, findings related to advanced liver disease and hepatitis nutrition support, mvi, thiamine and she is tolerating diet she can go home and follow up with [facility] ricardo given decompensation of cirrhosis (2) Acute gastric ulcer: Qualifiers: Gastric ulcer complication status: with hemorrhage Qualified Code(s): K25.0 - Acute gastric ulcer with hemorrhage Code(s): K25.3 - Acute gastric ulcer without hemorrhage or perforation Status: Acute Assessment and Plan: treated endoscopically nursing home protonix bid egd in 3 months to assess for healing (3) GI bleed: Qualifiers: GI bleed type/associated pathology: gastric ulcer Qualified Code(s): K25.4 - Chronic or unspecified gastric ulcer with hemorrhage Code(s): K92.2 - Gastrointestinal hemorrhage, unspecified Status: Acute Assessment and Plan: hb low but stable complete oral antibiotics (4) Acute blood loss anemia: Code(s): D62 - Acute posthemorrhagic anemia Status: Acute Assessment and Plan: stable (5) Transaminitis: Code(s): R74.01 - Elevation of levels of liver transaminase levels Status: Acute (6) Abnormal gallbladder ultrasound: Code(s): R93.2 - Abnormal findings on diagnostic imaging of liver and biliary tract Status: Acute Assessment and Plan: mrcp reviewed, no need of surgery Subjective Date/time seen: 10/13/20 11:00 Interval history: some abdominal discomfort but no major changes Review of Systems Review of Systems: All systems reviewed & are unremarkable except as noted in HPI and below Exam Const: General: comfortable and ill appearing chronically Other: obese HENMT: Other: icteric sclerae Eyes: Sclera: scleral abnormality Neck: Neck: supple Resp: Auscultation: clear to auscultation bilaterally Cardio: Rate: regular rate GI: GI Palp: Yes Soft to palpation, Yes Tenderness to palpation present (GI) (mild ttp in ruq, no rebound) and No Guarding due to palpation present (GI) Auscultation: normal bowel sounds Skin: Other: jaundice, spider angioma chest and telangiectasia Neuro: Speech: normal speech Motor exam (neuro): Normal motor muscle tone present throughout Extrem: General: normal to inspection Psych: Affect: normal affect Objective Data Vital Signs Vital Signs: Vital Signs - 24 hr 10/12/20 18:00 10/12/20 19:09 10/12/20 20:00 Temperature 98.2 F Pulse Rate 90 90 94 Respiratory Rate 20 Blood Pressure 109/59 L Pulse Oximetry 95 10/12/20 20:15 10/12/20 21:59 10/13/20 00:00 Temperature 98.5 F Pulse Rate 93 81 86 Respiratory Rate 20 Blood Pressure 113/66 Pulse Oximetry 93 10/13/20 02:00 10/13/20 04:00 10/13/20 06:00 Temperature 98.6 F Pulse Rate 88 90 94 Respiratory Rate 19 Blood Pressure 111/60 Pulse Oximetry 96 10/13/20 08:00 10/13/20 10:00 10/13/20 12:00 Temperature 98.1 F 98.5 F Pulse Rate 95 86 88 Respiratory Rate 16 18 Blood Pressure 113/64 97/52 L Pulse Oximetry 95 95 10/13/20 14:00 Temperature Pulse Rate 89 Respiratory Rate Blood Pressure Pulse Oximetry Intake/Output Intake/Output: Intake & Output 10/10/20 10/11/20 10/12/20 10/13/20 23:59 23:59 23:59 23:59 Intake Total 2580 1590 2920 2040 Output Total
== END 2020-10-13 17:34 | disposition home or self-care (01) | DRG 241 ==
LOC: ANHED 12:40 → ANHENDO 12:42 → ANHIMU 15:05
PROVIDERS: Internal Medicine Gastroenterology; Physician Assistant; Student in an Organized Health Care Education/Training Program; Admitting Provider Internal Medicine; Emergency Provider Emergency Medicine; PCP Nurse Practitioner Family; Visit Provider Internal Medicine
PROC: 0DJ08ZZ Inspection of Upper Intestinal Tract, Via Natural or Artificial Opening Endoscopic (ICD-10-PCS; CPT 43235; principal; 2020-10-09 13:20)
DX: K25.0 Acute gastric ulcer with hemorrhage (principal); K70.11 Alcoholic hepatitis with ascites; F41.1 Generalized anxiety disorder; K21.9 Gastro-esophageal reflux disease without esophagitis; B19.20 Unspecified viral hepatitis C without hepatic coma; E03.9 Hypothyroidism, unspecified; Z87.891 Personal history of nicotine dependence; K76.7 Hepatorenal syndrome; K72.90 Hepatic failure, unspecified without coma; Z88.0 Allergy status to penicillin; E66.9 Obesity, unspecified; Z68.32 Body mass index [BMI] 32.0-32.9, adult; D62 Acute posthemorrhagic anemia; Z87.11 Personal history of peptic ulcer disease; D75.89 Other specified diseases of blood and blood-forming organs; N17.9 Acute kidney failure, unspecified; E86.0 Dehydration; E87.6 Hypokalemia; I47.1 Supraventricular tachycardia; E80.6 Other disorders of bilirubin metabolism; E87.2 Acidosis; R93.2 Abnormal findings on diagnostic imaging of liver and biliary tract
CPT/HCPCS: 36415; 36430; 74181; 76376; 76705; 80048; 80053; 80074; 82140; 82248; 82550; 83605; 83735; 84075; 84100; 84439; 84443; 84480; 84484; 85014; 85018; 85025; 85027; 85055; 85610; 85730; 86850; 86900; 86901; 86920; 87040; 87081; 93005; 93306; 96361; 96365; 96366; 96367; 96368; 96375; 96376; 99285; A9270; C9113; G0378; G0379; J0171; J0696; J2270; J2354; J2405; J2704; J2765; J3475; J3480; J7040; J7050; J7060; J7120; J7512; P9016; P9047

== ENCOUNTER 2021-03-07 12:22 | Inpatient (IN) | payer OTHER, SELFPAY ==
[2021-03-07] VITALS (22 sets, daily range): BP systolic 112–144; BP diastolic 59–85; PULSE 104–141; RESP 13–25; TEMP 36.2–36.7; O2SAT 99–100
--- NOTE | ~2021-03-07 | US_ITS ---
EXAMINATION: US pelvic complete w TV EXAM DATE: 03/07/2021 17:58 INDICATION: Vaginal bleeding. 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 TECHNIQUE: Pelvic no prior sonogram was performed. There are multiple grayscale and Doppler images a vailable for interpretation. There is no prior study for comparison. FINDINGS: Uterus measures 9.8 x 5.8 x 5.2 cm, and is morphologically normal. Endometrial stripe silvio sures 8 mm, within normal limits. There are nabothian cysts. There is no free pelvic fluid. Right adnexa: The ovary measures 2.8 x 1.5 x 1.9 cm and is morphologically normal. Ovarian vascular f low confirmed. Left adnexa: The ovary measures 2.8 x 1.9 x 2.2 cm and is morphologically normal. Ovarian vascular fl ow confirmed. IMPRESSION: 1. Nabothian cysts. 2. Normal endometrial thickness. Reviewed, dictated and finalized at [facility]. [employer] CLE[employer]ER
--- NOTE | ~2021-03-07 | CT_ITS ---
EXAMINATION: CT brain wo con DATE: 03/07/2021 15:03 INDICATION: Trauma. Syncope. TECHNIQUE: Computed tomography (CT) of the head was performed without intravenous contrast. The mA wa s adjusted according to patient size. Iterative reconstruction technique was employed. Exam dose: 60 5.33 mGy-cm total exam DLP. COMPARISON: None FINDINGS: No intracranial mass lesion or hemorrhage or cerebrovascular accident, midline shift or mas s effect, subdural or epidural hematoma is detected. Normal ventricular size. Prominent opacification of the mid to posterior left ethmoid air cells. Included paranasal sinuses an d mastoid air cells are otherwise unremarkable. No fracture or bone destruction of the cranial vault. IMPRESSION: Mid to posterior left ethmoid air cell opacification No significant intracranial abnormality Reviewed, dictated and finalized at [facility]. Reviewed, dictated and finalized at [facility]. [employer] MECH[employer]IC
[2021-03-07] MEDS: SODIUM CHLORIDE 0.9% IV 1,000 ML 999 ML IV CONT (14:40)
[2021-03-07 14:45] LABS: Immature Platelet Fraction Pct 7.6 % (0.9-11.2); Mean Corpuscular HGB Conc 29.8 g/dl (32-36); Mean Corpuscular Hemoglobin 22.7 pg (26-34); Mean Corpuscular Volume 76.4 fl (80-100); Mean Platelet Volume 11.6 fl (7.4-10.4); Platelet Count Result 78 k/mm3 (150-375); Red Cell Distribution Width 22.4 % (11.5-14.5); White Blood Count 7.8 K/mm3 (4.5-10.0)
[2021-03-07 14:53] LABS: INR 1.4; Partial Thromboplastin Time 30.3 SECONDS (22.3-36.8); Prothrombin Time 16.5 Seconds (11.1-14.7)
[2021-03-07 14:54] LABS: Alanine Aminotransferase 39 U/L (4-35); Alkaline Phosphatase 139 U/L (38-126); Anion Gap 20 mmol/L (8-16); Aspartate Amino Transferase 117 U/L (14-36); Bilirubin,Total 2.4 mg/dL (0.2-1.3); Blood Urea Nitrogen 12 mg/dL (7-17); Calcium 8.4 mg/dL (8.4-10.2); Carbon Dioxide 15 mmol/L (22-30); Chloride 100 mmol/L (98-107); Estimated CRCL calculation 94 ml/min; Estimated Glomerular Filt Rate > 60; Glucose 163 mg/dL (65-110); Potassium 3.3 mmol/L (3.4-5.0); Sodium 135 mmol/L (137-145)
[2021-03-07 15:13] LABS: Hematocrit 16.8 % (37.0-47.0)
[2021-03-07 15:17] LABS: Band Neutrophils Percent 2 % (0-6); Lymphocytes Absolute Manual 0.54 K/mm3 (1.1-4.5); Monocytes Absolute Manual 0.54 K/mm3 (0.1-0.90); Monocytes Percent Manual 7 % (3-9); Neutrophils Percent Manual 84 % (46-73); Platelet Estimate Decreased (Adequate); Total Cells Counted 100
[2021-03-07 15:18] LABS: Anisocytosis 3+ (NORMAL); Hypochromasia 2+ (NORMAL)
[2021-03-07] MEDS: SODIUM CHLORIDE 0.9% IV 250 ML 30 ML IV CONT (15:30)
[2021-03-07] MEDS: MORPHINE SULFATE (*CRX) 4 MG/ML INJ IV PUSH (16:39)
[2021-03-07] MEDS: ONDANSETRON INJ 4 MG/2 ML VIAL IV PUSH ×3 (16:39→23:56)
--- NOTE | 2021-03-07 16:46 | ED.FEMALEGU ---
HPI - Female Genitourinary General Chief complaint: Vaginal Bleeding Stated complaint: vag bleed Time Seen by Provider: 03/07/21 14:01 History of Present Illness HPI Narrative: Patient is a 40-year-old female who presents ER with persistent vaginal bleeding over the last 3 weeks. Associated with dizziness and syncope x2. No abdominal pain but does have some occasional cramping. She has gone through several boxes of tampons and 38 pads. She reports she will occasionally pass large clots. Has not had issues with vaginal bleeding in the past. 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 Patient does have chronic liver disease and chronically low platelets. She also reports that she has a chronically elevated heart rate. Related Data Home Medications Medication Instructions Recorded Confirmed ondansetron 4 mg PO Q6H PRN 10/09/20 10/09/20 Allergies Allergy/AdvReac Type Severity Reaction Status Date / Time Penicillins Allergy Intermediate rash Verified 10/09/20 15:22 Review of Systems Review of Systems: All systems reviewed & are unremarkable except as noted in HPI and below Constitutional: Constitutional: Denies chills and Reports fatigue ENT: Denies nasal congestion and Denies sore throat Cardiovascular: Cardiovascular: Denies chest pain, Denies rapid heart rate and Denies radiating jaw, neck or arm pain Gastrointestinal: Gastrointestinal: Denies abdominal pain, Denies diarrhea, Reports nausea and Denies vomiting Genitourinary: Genitourinary: Reports abnormal vaginal bleeding, Denies nocturia, Denies dysuria, Denies flank pain and Denies vaginal discharge Integumentary/Breasts: Comments: Bruising Neurologic: Reports syncope, Denies headache(s), Denies focal weakness and Denies numbness PMF Past Medical History Medical History Alcoholic cirrhosis of liver Alcoholic hepatitis with ascites Followed by the hepatology team at [facility]. Anxiety Gastric ulcer (10/09/20) Gastroesophageal reflux Hepatitis C Questionable history of such. History of GI bleed March 2018 and October 2020. Hypothyroidism Surgical History Surgical History History of laparoscopy For endometriosis. History of tubal ligation Family History Family History Mother Chronic obstructive pulmonary disease Congestive heart failure Social History Social History Social History: Patient lives with her fiance and children in [place]. 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 She does not smoke. She has a history of alcohol abuse but has cut back heavily and now only drinks couple of alcoholic beverages perhaps once a month. no illicit substance use. She designates her fiance, John Emmanuel, as her surrogate decision maker. Code status: Full code. Exam Narrative: GENERAL: Chronically ill-appearing, well-nourished, and in no acute distress. HEAD: Normocephalic, contusion left forehead and around the left periorbital region. EYES: PERRL and EOMI. pale conjunctiva. ENT: Mucous membranes moist. CHEST: Clear to auscultation. No respiratory distress. HEART: Tachycardic and regular. Normal peripheral pulses. ABDOMEN: Soft, nontender, nondistended. : Normal external genitalia. Moderate mount of clot removed from the vagina. Cervix normal appearance with oozing bright red blood from the cervix. Cervical cyst noted. No discharge. EXTREMITIES: Normal range of motion. No edema. SKIN: Warm, dry, pale, scattered bruising. NEURO: Alert and oriented x3. Course Course Emergency Course: Discussed case with Dr. Linares who would like the patient to her service. 2 units of blood ordered for transfusion. Ultrasound pending. Patient does not believe herself to be due to the fact that she has had a tubal lig
[2021-03-07] MEDS: HYDROcodone/acetaminophen (*CRX) 5-325 MG TABLET 1 TAB PO (20:18)
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
[2021-03-07] MEDS: LACTATED RINGERS 1,000 ML 125 ML IV CONT (22:41)
[2021-03-07] MEDS: ACETAMINOPHEN 325 MG TABLET 650 MG PO (23:56)
[2021-03-08] VITALS (15 sets, daily range): BP systolic 110–142; BP diastolic 53–98; PULSE 95–118; RESP 16–18; TEMP 36.2–37.4; O2SAT 98–100
[2021-03-08] MEDS: ONDANSETRON INJ 4 MG/2 ML VIAL IV PUSH ×2 (05:07→10:58)
[2021-03-08] MEDS: ACETAMINOPHEN 325 MG TABLET 650 MG PO ×4 (05:07→22:30)
[2021-03-08 06:43] LABS: Immature Platelet Fraction Pct 10.5 % (0.9-11.2); Mean Corpuscular HGB Conc 33.3 g/dl (32-36); Mean Corpuscular Hemoglobin 25.9 pg (26-34); Mean Corpuscular Volume 77.6 fl (80-100); Platelet Count Result 51 k/mm3 (150-375); Red Blood Count 2.59 M/mm3 (4.2-5.4); Red Cell Distribution Width 19.4 % (11.5-14.5); White Blood Count 7.5 K/mm3 (4.5-10.0)
[2021-03-08 07:31] LABS: Hematocrit 20.1 % (37.0-47.0)
[2021-03-08 07:32] LABS: Hemoglobin 6.7 g/dL (12.0-15.0)
--- NOTE | 2021-03-08 07:34 | PM.IMHP ---
H&P: HPI History of Present Illness Date/Time: 03/08/21 07:34 Chief Complaint: bleeding and passing out Narrative: The patient is a 40-year-old 3 para 3 admitted through the emergency room with severe anemia and menorrhagia. The patient states she has been having heavy cycles for some time but is unable to give details. She states she has been bleeding continuously over the last month and has been getting heavier over time. She has been passing out. She does not remember being brought to the emergency room but she fell and her boyfriend made her come. Patient is not been seen by gynecology and over 11 years. She was last seen by me in 2009. Overnight the patient's bleeding has decreased but she had [id number] of blood measured by the nursing staff. In addition the patient reports nausea and cramping. Review of Systems Constitutional: Constitutional: Reports frequent falls and Reports weakness Respiratory: Respiratory: Reports dyspnea on exertion Psychiatric: Psychiatric: Reports anxiety ( With panic attacks) [facility] Past Medical History Medical History (Updated 03/08/21 @ 07:38 by Akosua Linares MD) Alcoholic cirrhosis of liver Alcoholic hepatitis with ascites Followed by the hepatology team at [facility]. Anxiety Borderline diabetes Gastric ulcer (10/09/20) Gastroesophageal reflux Hepatitis C Questionable history of such. History of GI bleed March 2018 and October 2020. Hypothyroidism (normal spontaneous vaginal delivery) x3 Surgical History Surgical History History of laparoscopy For endometriosis. History of tubal ligation Family History Family History Mother Chronic obstructive pulmonary disease Congestive heart failure Social History Social History Social History: Patient lives with her fiance and children in [place]. 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 She does not smoke. She has a history of alcohol abuse but has cut back heavily and now only drinks couple of alcoholic beverages perhaps once a month. no illicit substance use. She designates her fiance, John Emmanuel, as her surrogate decision maker. Code status: Full code. Meds Home Medications and Allergies Home Medications Medication Instructions Recorded Confirmed Type pyridoxine (vitamin B6) [Vitamin 25 mg PO QAM 30 Days #15 tablet 10/13/20 Rx B-6] thiamine HCl (vitamin B1) [Vitamin 100 mg PO QAM 30 Days #30 tablet 10/13/20 Rx B-1] hydroxyzine HCl 50 mg tablet See Rx Instructions .ROUTE 11/16/20 Rx .COMPLEX #90 tablet dicyclomine 10 mg capsule 10 mg PO QID PRN #30 cap 11/18/20 Rx furosemide 20 mg tablet 20 mg PO QAM #90 tablet 11/22/20 Rx Allergies Allergy/AdvReac Type Severity Reaction Status Date / Time Penicillins Allergy Intermediate rash Verified 10/09/20 15:22 Vital Signs Vital Signs - 24 hr 03/07/21 12:40 03/07/21 14:03 03/07/21 14:15 Temperature 98 F Pulse Rate 135 H 125 H 119 H Respiratory Rate 20 19 18 Blood Pressure 136/67 Pulse Oximetry 100 03/07/21 14:16 03/07/21 14:30 03/07/21 14:31 Temperature Pulse Rate 123 H 121 H 125 H Respiratory Rate 13 18 22 H Blood Pressure 112/77 113/62 Pulse Oximetry 03/07/21 14:45 03/07/21 16:31 03/07/21 16:33 Temperature 97.9 F Pulse Rate 141 H 126 H 129 H Respiratory Rate 25 H 20 16 Blood Pressure 114/61 114/61 Pulse Oximetry 100 100 03/07/21 16:45 03/07/21 16:46 03/07/21 16:48 Temperature 97.5 F L Pulse Rate 125 H 124 H Respiratory Rate 18 16 Blood Pressure 117/59 L 120/67 Pulse Oximetry 99 100 03/07/21 17:48 03/07/21 18:16 03/07/21 18:20 Temperature 97.9 F 97.5 F L 97.5 F L Pulse Rate 112 H 110 H 111 H Respiratory Rate 16 16 16 Blood Pressure 129/74 132/71 132/71 Pulse Oximetry 10
[2021-03-08] MEDS: TRANEXAMIC ACID 1,000MG/ISO100 1,000 MG/100 ML BAG 200 MG IVPB ×2 (08:29→16:04)
[2021-03-08] MEDS: SODIUM CHLORIDE 0.9% IV 250 ML 30 ML IV CONT (10:59)
[2021-03-08] MEDS: IBUPROFEN 600 MG TABLET PO ×2 (12:09→19:31)
[2021-03-08] MEDS: LACTATED RINGERS 1,000 ML 125 ML IV CONT (16:00)
[2021-03-08 22:31] LABS: Basophils Percent Auto 0.1 % (0.2-1.2); Hematocrit 22.2 % (37.0-47.0); Hemoglobin 7.4 g/dL (12.0-15.0); Immature Granulocyte Absolute 0.08 K/mm3 (0.00-0.031); Immature Granulocyte Percent A 1.1 % (0-0.5); Immature Platelet Fraction Pct 8.6 % (0.9-11.2); Lymphocytes Absolute Auto 1.09 K/mm3 (0.9-3.2); Lymphocytes Percent Auto 14.7 % (18.3-44.2); Mean Corpuscular HGB Conc 33.3 g/dl (32-36); Mean Corpuscular Hemoglobin 27.5 pg (26-34); Mean Corpuscular Volume 82.5 fl (80-100); Monocytes Absolute Auto 1.1 K/mm3 (0.1-0.6); Monocytes Percent Auto 14.8 % (2.6-8.5); Neutrophils Absolute Auto 5.2 K/mm3 (1.3-6.7); Neutrophils Percent Auto 69.3 % (45.5-73.1); Nucleated Red Blood Cells Perc 0.3 % (0.0-0.2); Platelet Count Result 57 k/mm3 (150-375); Red Blood Count 2.69 M/mm3 (4.2-5.4); White Blood Count 7.4 K/mm3 (4.5-10.0)
[2021-03-09] VITALS (26 sets, daily range): BP systolic 80–145; BP diastolic 53–89; PULSE 88–140; RESP 14–23; TEMP 36.1–36.9; O2SAT 97–100
[2021-03-09] MEDS: TRANEXAMIC ACID 1,000MG/ISO100 1,000 MG/100 ML BAG 200 MG IVPB ×3 (00:02→20:50)
[2021-03-09] MEDS: ONDANSETRON INJ 4 MG/2 ML VIAL IV PUSH ×3 (00:20→20:28)
[2021-03-09] MEDS: IBUPROFEN 600 MG TABLET PO (02:15)
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
--- NOTE | 2021-03-09 07:16 | PM.GYNPNOP ---
ASSISTANT FINANCE DIRECTOR - A/P Assessment and plan (1) Abnormal vaginal bleeding: Code(s): N93.9 - Abnormal uterine and vaginal bleeding, unspecified Status: Acute Assessment and Plan: Patient continues with bleeding. Per RN patient was hiding some of her bleeding from them. Measured EBL last 24 hours is 484. Discussed with patient that medication is not working and recommend to proceed with surgery. Recommend to proceed with D&C hysteroscopy with endometrial ablation. Risks of infection, bleeding, possible pathology, perforation were reviewed with patient. OR has 1430 time open. Will proceed. Patient agrees to plan. Also, output of bleeding does not match the H/H. GI consult ordered as well with history of GI bleeds. (2) Anemia: Code(s): D64.9 - Anemia, unspecified Status: Acute Time Spent With Patient Time: Total time spent is greater than 50% in coordination of care (as documented) at patient's floor/unit and/or counseling patient: Time with patient: 15 - 25 minutes ASSISTANT FINANCE DIRECTOR- PN:Subj Post-Op Subjective Date/time seen: 03/09/21 07:16 Subjective: patient reports feeling better, patient is tolerating oral intake and other (bleeding without change) Exam GI: GI Palp: No abdominal tenderness ASSISTANT FINANCE DIRECTOR - PN: Obj Data Vital Signs Vital Signs: Vital Signs - 24 hr 03/08/21 11:15 03/08/21 11:30 03/08/21 12:30 Temperature 98.0 F 99.4 F 98.7 F Pulse Rate 95 98 108 H Respiratory Rate 18 18 18 Blood Pressure 119/59 L 111/53 L 126/68 Pulse Oximetry 100 100 100 03/08/21 13:45 03/08/21 13:55 03/08/21 14:10 Temperature 98.2 F 98.2 F 98.2 F Pulse Rate 100 100 99 Respiratory Rate 18 18 18 Blood Pressure 114/69 114/69 124/70 Pulse Oximetry 100 100 100 03/08/21 15:10 03/08/21 16:00 03/08/21 18:40 Temperature 98.7 F 98.6 F 98.0 F Pulse Rate 98 98 100 Respiratory Rate 18 18 18 Blood Pressure 110/63 112/70 111/98 H Pulse Oximetry 100 100 03/09/21 01:49 03/09/21 01:55 03/09/21 02:00 Temperature 98.4 F 98.4 F 98.4 F Pulse Rate 104 H 104 H 95 Respiratory Rate 16 16 16 Blood Pressure 103/57 L 103/57 L 107/66 Pulse Oximetry 100 100 03/09/21 02:10 Temperature 98.1 F Pulse Rate 106 H Respiratory Rate 16 Blood Pressure 103/64 Pulse Oximetry 100 Intake/Output Intake/Output: Intake & Output 03/06/21 03/07/21 03/08/21 03/09/21 23:59 23:59 23:59 23:59 Intake Total 1700 2730 350 Balance 1700 2730 350 Meds/Results Medications: Active Medications Generic Name Dose Route Start Last Admin Trade Name Freq PRN Reason Stop Dose Admin Acetaminophen 650 mg 03/07/21 16:52 03/08/21 22:30 Acetaminophen 325 Mg Tablet PO 650 mg Q4H PRN Administration Mild Pain (1-3) or Fever Lactated Ringer's 1,000 mls @ 125 mls/hr 03/07/21 22:10 03/08/21 16:00 Lr - Lactated Ringers Iv IV CONT 125 mls/hr .Q8H SUKHDEV Administration Tranexamic Acid/Sodium Chloride 1,000 mg in 100 mls @ 200 mls/hr 03/08/21 08:00 03/09/21 00:02 Tranexamic Acid 1,000mg/[id number] IVPB 200 mls/hr Q8H SUKHDEV Administration Ibuprofen 600 mg 03/07/21 22:09 03/09/21 02:15 Ibuprofen 600 Mg Tablet PO 600 mg Q6H PRN Administration Cramping Ondansetron HCl 4 mg 03/07/21 16:52 03/09/21 00:20 Ondansetron Inj 4 Mg/2 Ml Vial IV PUSH 4 mg Q4H PRN Administration Nausea Radiology Results: ITS Impressions Head CT 03/07/21 15:03 IMPRESSION: Mid to posterior left ethmoid air cell opacification No significant intracranial abnormality Pelvic/Transvag US 03/07/21 18:00 IMPRESSION: 1. Nabothian cysts. 2. Normal endometrial thickness. Labs CBC & Chem 7: 03/08/21 22:05 03/07/21 14:35 Labs: Laboratory Results - last 24 hr 03/07/21 03/08/21 03/08/21 14:36 05:04 22:05 WBC 7.5 7.4 RBC 2.59 L 2.69 L Hgb 6.7 L* 7.4 L Hct 20.1 L* 22.2 L MCV 77.6 L 82.5 D MCH 25.9 L D 27.5 D MCHC 33.3 33.3 RDW 19.4 H 19.0 H Plt Coun
--- NOTE | 2021-03-09 11:00 | WPDGICN ---
Assessment and Plan Assessment and plan (1) Acute blood loss anemia: Code(s): D62 - Acute posthemorrhagic anemia Status: Acute Assessment and Plan: significant vaginal bleeding and today will have veneer gluer procedure but it is also concerning history of previous hospitalization with gastric ulcer and cirrhosis will start iv protonix and octreotide drip egd tomorrow to check if active gib s/p blood transfusion and continue to trend h/h (2) Abnormal vaginal bleeding: Code(s): N93.9 - Abnormal uterine and vaginal bleeding, unspecified Status: Acute Assessment and Plan: by primary team, will have procedure soon (3) Alcoholic cirrhosis of liver: Qualifiers: Ascites presence: unspecified Qualified Code(s): K70.30 - Alcoholic cirrhosis of liver without ascites Code(s): K70.30 - Alcoholic cirrhosis of liver without ascites Status: Acute Assessment and Plan: elevated liver enzymes, will repeat tomorrow and calculate meld score will need follow with hepatology in [place] she says that is hardly drinking anymore thiamine (4) Transaminitis: Code(s): R74.01 - Elevation of levels of liver transaminase levels Status: Acute Assessment and Plan: from alcohol use hepatitis C negative (5) Hematemesis: Code(s): K92.0 - Hematemesis Status: Acute Assessment and Plan: egd tomorrow ppi GI Consult Note Consult date/time: 03/09/21 11:00 Reason for consult: acute blood loss anemia, vaginal bleeding, previous history of gastric ulcer HPI: Janene Russell is a 40 year old female with diagnoses of alcoholic cirrhosis (patient says now only drinking socially), GERD, generalized anxiety disorder, pancreatitis, hypothyroidism, C. diff in March 2008 who was admitted 10/2020 due to upper GIB, EGD by Dr Pacheco showed actively bleeding 2 cm white-based ulcer treated endoscopically. She is here with generalized weakness, also pre-syncope from being so weak and 2-3 weeks of profuse vaginal bleeding. Hb 5 and received blood transfusion, still with vaginal bleeding and veneer gluer is planning to perform hysteroscopy with ablation. Patient denies blood in stools but event staff member report coffee ground emesis. Tb 2.4, ast 117, alt 39. Review of Systems Constitutional: Constitutional: Reports lethargy and Reports weakness Eyes: Eyes: Reports no additional eye complaints ENT: Reports Normal hearing present Cardiovascular: Cardiovascular: Denies chest pain Respiratory: Respiratory: Denies cough Gastrointestinal: Gastrointestinal: Reports nausea and Reports vomiting Genitourinary: Comments: vaginal bleeding Musculoskeletal: Musculoskeletal: Denies neck pain Integumentary/Breasts: Skin/Breast: Denies dry skin Neurologic: Denies confusion Psychiatric: Psychiatric: Reports anxiety [facility] Past Medical History Medical History (Updated 03/09/21 @ 17:05 by Efraín Platt MD) Alcoholic cirrhosis of liver Alcoholic hepatitis with ascites Followed by the hepatology team at [facility]. Anxiety Borderline diabetes Gastric ulcer (10/09/20) Gastroesophageal reflux Hematemesis Hepatitis C Questionable history of such. History of GI bleed March 2018 and October 2020. Hypothyroidism (normal spontaneous vaginal delivery) x3 Surgical History Surgical History History of laparoscopy For endometriosis. History of tubal ligation Family History Family History Mother Chronic obstructive pulmonary disease Congestive heart failure Social History Social History Social History: Patient lives with her fiance and children in [place]. 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 She does not smoke. She has a history of alcohol abuse but has cut back heavily and now onl
--- NOTE | 2021-03-09 12:31 | PC.NURSE ---
1215-Emesis of 50 ml charted in I & O was bloody emesis.
--- NOTE | 2021-03-09 14:09 | PC.NURSE ---
1350-To OR per bed with blood transfusing. Report given to Teresa from pre-op. Informed them that patient has one more unit of blood to be transfused.
[2021-03-09] MEDS: LACTATED RINGERS 1,000 ML 30 ML IV CONT (14:13)
--- NOTE | 2021-03-09 14:13 | SUR.PREOP ---
1350; WHEN PICKING UP PT FROM 289, KENZIE LEONARD RN STATES PT JUST HAD A SYNCOPAL EPISODE. PT VERY SOMNOLENT, FIANCE/POA AT BEDSIDE. HE STATES AFTER PT PASSED OUT SHE WILL BE OUT OF IT FOR A WHILE PT HAS EMESIS BAG WITH NIESHA RED BLOOD EMESIS IN IT. PT IS COVERED IN BRUISES AT DIFFERENT STAGES OF HEALING. 1415; PT MORE ALERT NOW. AGITATED, C/O NAUSEA AND UPSET STOMACH. DR KU SPEAKING TO PT AND POA. PT STILL VOMITING BLOOD IN SMALL AMTS
--- NOTE | 2021-03-09 14:19 | WPDANESEPPF ---
Anes - Initial Pre Proc Eval Procedure: Operation Date: 03/09/21 14:30 Proposed Procedures p Hysteroscopy, Dilation and Curettage with Merlene Endometrial Ablation - Akosau Linares MD Operation Date: 03/10/21 13:30 Proposed Procedures p Esophagogastroduodenoscopy - Efraín Platt MD Date/Time: 03/09/21 14:19 Surgeon: Akosua Linares MD Pre Op Diagnosis: Vaginal bleed,anemia Patient Data Age: 40 Gender: F Height: 1.63 m Weight: 77.1 kg Last Vital Signs Temp 36.9 C 03/09/21 14:04 Pulse 118 H 03/09/21 14:04 Resp 20 03/09/21 14:04 BP 110/61 03/09/21 14:04 Pulse Ox 100 03/09/21 14:04 Allergies Allergy/AdvReac Type Severity Reaction Status Date / Time Penicillins Allergy Intermediate rash Verified 10/09/20 15:22 Home Medications Medication Instructions Recorded Confirmed Type pyridoxine (vitamin B6) [Vitamin 25 mg PO QAM 30 Days #15 tablet 10/13/20 Rx B-6] thiamine HCl (vitamin B1) [Vitamin 100 mg PO QAM 30 Days #30 tablet 10/13/20 Rx B-1] hydroxyzine HCl 50 mg tablet See Rx Instructions .ROUTE 11/16/20 Rx .COMPLEX #90 tablet dicyclomine 10 mg capsule 10 mg PO QID PRN #30 cap 11/18/20 Rx furosemide 20 mg tablet 20 mg PO QAM #90 tablet 11/22/20 Rx Laboratory Tests 03/07/21 03/08/21 14:36 22:05 WBC 7.4 K/mm3 K/mm3 (4.5-10.0) RBC 2.69 M/mm3 L M/mm3 (4.2-5.4) Hgb 7.4 g/dL L g/dL (12.0-15.0) Hct 22.2 % L % (37.0-47.0) MCV 82.5 fl D fl (80-100) MCH 27.5 pg D pg (26-34) MCHC 33.3 g/dl g/dl (32-36) RDW 19.0 % H % (11.5-14.5) Plt Count 57 k/mm3 L k/mm3 (150-375) MPV TNP Immature Gran % (Auto) 1.1 % H % (0-0.5) Neut % (Auto) 69.3 % % (45.5-73.1) Lymph % (Auto) 14.7 % L % (18.3-44.2) Warrick % (Auto) 14.8 % H % (2.6-8.5) Eos % (Auto) 0.0 % % (0-4.4) Baso % (Auto) 0.1 % L % (0.2-1.2) Lymph # (Auto) 1.09 K/mm3 K/mm3 (0.9-3.2) Warrick # (Auto) 1.1 K/mm3 H K/mm3 (0.1-0.6) Eos # (Auto) 0.0 K/mm3 K/mm3 (0-0.3) Baso # (Auto) 0.0 K/mm3 K/mm3 (0.0-0.1) Abs Immat Gran (auto) 0.08 K/mm3 H K/mm3 (0.00-0.031) Absolute Neuts (auto) 5.2 K/mm3 K/mm3 (1.3-6.7) Absolute Nucleated RBC 0.0 K/mm3 K/mm3 (0.0-0.012) Nucleated RBC % 0.3 % H % (0.0-0.2) % Immature Plt Fraction 8.6 % % (0.9-11.2) Blood Type O Positive Antibody Screen Negative Crossmatch See Detail Patient hx anesthesia problems: none Family hx anesthesia problems: none Results Review: All pre-operative results and documents have been reviewed as part of the pre-operative evaluation. [facility] Past Medical History Medical History Alcoholic cirrhosis of liver Alcoholic hepatitis with ascites Followed by the hepatology team at [facility]. Anxiety Borderline diabetes Gastric ulcer (10/09/20) Gastroesophageal reflux Hepatitis C Questionable history of such. History of GI bleed March 2018 and October 2020. Hypothyroidism (normal spontaneous vaginal delivery) x3 Surgical History Surgical History History of laparoscopy For endometriosis. History of tubal ligation Family History Family History Mother Chronic obstructive pulmonary disease Congestive heart failure Social History Social History Social History: Patient lives with her fiance and children in [place]. 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 She does not smoke. She has a history of alcohol abuse but has cut back heavily and now only drinks couple of alcoholic beverages perhaps once a month. no illicit substance use. She designates her fianc
--- NOTE | 2021-03-09 14:22 | PC.NURSE ---
1330-RN assisted patient to bathroom before going to surgery; patient had syncope spell in bathroom; RN received assistance from other RNs on unit; patient was transferred from bathroom to bed via wheelchair. Patient was slow to recover.
--- NOTE | 2021-03-09 14:34 | PC.NURSE ---
0900-Academic Support Coordinator OB Director on floor to initiate 2nd IV for patient; patient required IV placement via ultrasound; new IV initiated at 0932. Country Printer Apprentice spoke with RN to get update on patients status on current situation of vaginal bleeding and plan for surgery later in afternoon. 1025-OB Director was called to floor to assess patient's bleeding; RN was instructed to weigh bloody pads/clots and inform her of amount. 1045-RN gave amounts of vaginal bleeding to OB Director. No further instructions received at this time.
--- NOTE | 2021-03-09 15:10 | WPDHPUPDATE1 ---
History and Physical Update Update Date/Time: 03/09/21 15:10 History and Physical has been reviewed, including an updated exam of the patient. There are changes in the patient's condition. Vomited x 1 with blood. GI aware. Risks, benefits, and alternatives have been discussed and questions answered. Patient agrees to proceed with procedure.
--- NOTE | 2021-03-09 15:13 | PC.NURSE ---
1135-Dr. Bhatia to the floor for consult; RN updated doctor on patient's condition and surgery scheduled for later this afternoon. Doctor visited with patient. Doctor will wait to get information from surgery today and then schedule a possible EGD tomorrow.
--- NOTE | 2021-03-09 15:18 | SUR.PREOP ---
1500; PT FULLY AWAKE AND ALERT. STILL C/O NAUSEA BUT VOMITING HAS STOPPED. REPORT GIVEN TO DR KU AND RACQUEL WARD NURSE
--- NOTE | 2021-03-09 15:42 | W.PM.PROC2 ---
Procedure Note - Detailed Date of Procedure 03/09/21 Pre-op Diagnosis Vaginal bleeding,anemia Post-op Diagnosis same Procedure Performed D&C hysteroscopy with Merlene endometrial ablation Surgeon Akosua Linares MD Anesthesia general Findings Uterus sounds to 7.5cm and appears grossly normal. There was 1 area of shedding endometrium that is small the remainder appears intact and is not actively bleeding Description of Procedure The patient is taken to the operating room and placed under general anesthesia in the dorsal lithotomy position. She was prepped and draped in the usual sterile fashion. Approximately a 50cc clot is removed during the prep. The bivalve speculum was placed in the vagina and the cervix grasped on the anterior lip with a tenaculum. The cervix was injected with 1% lidocaine in each quadrant. The uterus is sounded to 7.5cm. The cervix is serially dilated with Hegar size and the diagnostic hysteroscope placed. No abnormality is noted. The hysteroscope was removed and the medium sharp curette used to sharply curette the endometrium until a good uterine cry was noted in all areas. Minimal material was obtained consistent with the visual appearance. The Merlene device opened and placed. The device is set is 4.5cm. The device passed the safety assessment on the 1st attempt. Treatment cycle lasted the entire 2minutes. The Merlene device is removed and the hysteroscope replaced. Good ablation effect is noted. All instruments are removed. The patient is awakened from anesthesia and taken to recovery in stable condition. Sponge, needle, and instrument counts are correct per the OR staff. The patient will be taken to the ICU for further management postoperatively. Estimated Blood Loss 148 (50cc blood loss in the operating room with the clot removed from the prep) Drains No Packing No Pathology yes (Endometrial curettings) Complications No immediate complications Condition critical Disposition PACU (To the ICU after PACU)
[2021-03-09] MEDS: SODIUM CHLORIDE 0.9% IV 250 ML 30 ML IV CONT (16:15)
[2021-03-09] MEDS: fentaNYL CITRATE INJ (*CRX) 100 MCG/2 ML VIAL 25 MCG IV PUSH ×6 (16:32→17:28)
--- NOTE | 2021-03-09 19:45 | PC.NURSE ---
This patient, Janene Russell, was received from [PACU ] on 03/09/21 at 1745. Patient/family oriented to unit policies and routines
[2021-03-09 19:47] LABS: Basophils Percent Auto 0.2 % (0.2-1.2); Hematocrit 24.8 % (37.0-47.0); Hemoglobin 8.4 g/dL (12.0-15.0); Immature Granulocyte Absolute 0.58 K/mm3 (0.00-0.031); Immature Granulocyte Percent A 4.8 % (0-0.5); Lymphocytes Absolute Auto 1.18 K/mm3 (0.9-3.2); Lymphocytes Percent Auto 9.8 % (18.3-44.2); Mean Corpuscular HGB Conc 33.9 g/dl (32-36); Mean Corpuscular Hemoglobin 28.9 pg (26-34); Mean Corpuscular Volume 85.2 fl (80-100); Mean Platelet Volume 11.4 fl (7.4-10.4); Monocytes Absolute Auto 1.3 K/mm3 (0.1-0.6); Monocytes Percent Auto 10.8 % (2.6-8.5); Neutrophils Absolute Auto 8.9 K/mm3 (1.3-6.7); Neutrophils Percent Auto 74.4 % (45.5-73.1); Nucleated Red Blood Cells Absolute Auto 0.1 K/mm3 (0.0-0.012); Nucleated Red Blood Cells Perc 1.1 % (0.0-0.2); Platelet Count Result 116 k/mm3 (150-375); Red Blood Count 2.91 M/mm3 (4.2-5.4); Red Cell Distribution Width 15.9 % (11.5-14.5)
[2021-03-09 19:57] LABS: INR 1.9; Prothrombin Time 21.4 Seconds (11.1-14.7)
[2021-03-09 20:14] LABS: Alanine Aminotransferase 25 U/L (4-35); Alkaline Phosphatase 71 U/L (38-126); Anion Gap 8 mmol/L (8-16); Aspartate Amino Transferase 69 U/L (14-36); Bilirubin,Total 5.2 mg/dL (0.2-1.3); Blood Urea Nitrogen 33 mg/dL (7-17); Calcium 6.8 mg/dL (8.4-10.2); Carbon Dioxide 17 mmol/L (22-30); Chloride 106 mmol/L (98-107); Estimated CRCL calculation 83 ml/min; Estimated Glomerular Filt Rate > 60; Glucose 183 mg/dL (65-110); Sodium 131 mmol/L (137-145)
[2021-03-09] MEDS: PANTOPRAZOLE SODIUM IV 40 MG VIAL IV PUSH (20:26)
[2021-03-09] MEDS: SODIUM CHLORIDE 0.9% IV 1,000 ML 125 ML IV CONT (20:28)
--- NOTE | 2021-03-09 20:30 | WPDCN ---
Assessment and Plan Assessment and plan (1) Acute blood loss anemia: Code(s): D62 - Acute posthemorrhagic anemia Status: Acute Assessment and Plan: Secondary to heavy vaginal bleeding the last month or so in addition to GI blood loss. She has thus far received 9 units of packed red blood cells. It looks like she received TXA in the OR. Chemistries pending to evaluate for electrolyte abnormalities. Continue to trend H&H Q 6 hours and transfuse to a stable hemoglobin if indicated. (2) Abnormal vaginal bleeding: Code(s): N93.9 - Abnormal uterine and vaginal bleeding, unspecified Status: Acute Assessment and Plan: Status post D&C hysteroscopy with endometrial ablation per Dr. Linares. (3) Acute GI bleeding: Code(s): K92.2 - Gastrointestinal hemorrhage, unspecified Status: Acute Assessment and Plan: Dr. Platt has been consulted. Continue Protonix and octreotide drip. (4) Alcoholic cirrhosis of liver: Qualifiers: Ascites presence: unspecified Qualified Code(s): K70.30 - Alcoholic cirrhosis of liver without ascites Code(s): K70.30 - Alcoholic cirrhosis of liver without ascites Status: Acute Assessment and Plan: Followed by hepatology at [facility]. Labs show evidence of synthetic dysfunction. Will give a dose of vitamin K given ongoing bleeding. (5) Transaminitis: Code(s): R74.01 - Elevation of levels of liver transaminase levels Status: Acute Assessment and Plan: Related to chronic liver disease. Followed by hepatology at [facility]. (6) Syncope: Code(s): R55 - Syncope and collapse Status: Acute Assessment and Plan: Patient reports syncope x2 earlier in the week. Most likely due to hypotension from hypovolemia due to profound anemia. She will be monitor on telemetry overnight though I do not think a further workup is indicated. Additional Plan Thank you for allowing us to participate in this patient's care. Please do not hesitate to contact us with any questions. Supervising physician for this medical consultation is Dr. Rhonda Rausch. HPI Data of Consult Date/Time: 03/09/21 20:30 Requesting Physician: Akosua Linares MD Primary Care Provider: Janene Jasmine NP Consult Narrative Narrative: This is a 40-year-old female with alcoholic cirrhosis and gastric ulcers with history of GI bleeding whom the hospitalist service has been consulted for help in managing the patient medically status post D and C hysteroscopy with endometrial ablation. The patient was admitted through the emergency department on 03/07/2021 after presenting with heavy vaginal bleeding for nearly a months time in addition to dizziness and syncope x2. Since admission she has required 9 units of packed red blood cells. It was felt that her output of vaginal bleeding did not match with the severity of her anemia and with further questioning the patient did admit that she has been passing dark stools and Dr. Platt has since been consulted. Given her history she is to go for endoscopy tomorrow. In any event, she is status post D&C hysteroscopy with endometrial ablation today per Dr. Linares. Postoperatively her blood pressures have been soft though her most recent hemoglobin and hematocrit look better at 8.4 and 24.8% respectively. At the time my evaluation the patient reports severe cramping pain in the suprapubic region and she is requesting pain medication. She has no other complaints. She does mention passing a small dark stool not long prior to my arrival to the room. She has not noticed any significant vaginal bleeding. She denies fever, chills, sweats, chest pain, shortness of breath, near-syncope, active nausea and vomiting, and dysuria. She has not had chest pain, pleuritic pain, or palpitations. Patient reports that her sync
[2021-03-09 21:01] LABS: Magnesium 1.3 mg/dL (1.6-2.3); Phosphorus 2.5 mg/dL (2.5-4.5)
[2021-03-09 21:25] LABS: Fibrinogen 68 mg/dl (215-510)
[2021-03-09] MEDS: HYDROcodone/acetaminophen (*CRX) 5-325 MG TABLET 1 TAB PO (23:05)
[2021-03-09] MEDS: PHYTONADIONE INJ 10 MG/ML AMP 5 MG SUB-Q (23:07)
[2021-03-09] MEDS: CALCIUM GLUC 2,000 MG/NS 100ML 2,000 MG/100 ML BAG 100 MG IVPB (23:07)
[2021-03-09 23:19] LABS: Hematocrit 22.8 % (37.0-47.0); Hemoglobin 7.8 g/dL (12.0-15.0)
[2021-03-09 23:31] LABS: Fractional Inspired Oxygen 21 %; HCO3 VBG 16.2 mEq/l (24.0-30.0)
[2021-03-09 23:33] LABS: Device ROOM AIR; PCO2 VBG 26.7 mmHg (42.0-48.0); pH VBG 7.401 (7.300-7.400)
[2021-03-10] VITALS (30 sets, daily range): BP systolic 91–123; BP diastolic 50–76; PULSE 75–117; RESP 12–28; TEMP 36.1–37.1; O2SAT 94–100; BMI 29.1
[2021-03-10] MEDS: MAGNESIUM SULFATE 3GM/D5W100ML 3 GM/100 ML BAG IVPB (00:38)
[2021-03-10] MEDS: TUBING, BLOOD PLUM PUMP TUBING 1 EACH XX ×3 (00:55→20:07)
[2021-03-10] MEDS: TRANEXAMIC ACID 1,000MG/ISO100 1,000 MG/100 ML BAG 200 MG IVPB ×4 (01:21→17:29)
[2021-03-10 04:44] LABS: Hematocrit 18.8 % (37.0-47.0)
[2021-03-10 04:45] LABS: Hemoglobin 6.4 g/dL (12.0-15.0)
[2021-03-10 05:01] LABS: INR 1.5
[2021-03-10 05:02] LABS: Partial Thromboplastin Time 28.3 SECONDS (22.3-36.8)
[2021-03-10 05:03] LABS: Alanine Aminotransferase 23 U/L (4-35); Albumin Level 1.9 g/dL (3.5-5.1); Alkaline Phosphatase 61 U/L (38-126); Anion Gap 7 mmol/L (8-16); Aspartate Amino Transferase 56 U/L (14-36); Bilirubin,Total 3.2 mg/dL (0.2-1.3); Blood Urea Nitrogen 32 mg/dL (7-17); Calcium 7.1 mg/dL (8.4-10.2); Carbon Dioxide 16 mmol/L (22-30); Chloride 106 mmol/L (98-107); Estimated CRCL calculation 72 ml/min; Estimated Glomerular Filt Rate > 60; Glucose 159 mg/dL (65-110); Magnesium 2.1 mg/dL (1.6-2.3); Potassium 3.8 mmol/L (3.4-5.0); Sodium 129 mmol/L (137-145)
[2021-03-10] MEDS: ONDANSETRON INJ 4 MG/2 ML VIAL IV PUSH ×2 (05:06→14:59)
[2021-03-10 05:08] LABS: Fibrinogen 151 mg/dl (215-510)
[2021-03-10] MEDS: traMADol HCL (*CRX) 50 MG TABLET PO (05:22)
[2021-03-10] MEDS: SODIUM CHLORIDE 0.9% IV 250 ML 30 ML IV CONT ×2 (06:09→20:06)
[2021-03-10] MEDS: ACETAMINOPHEN 325 MG TABLET 650 MG PO (07:40)
[2021-03-10] MEDS: PANTOPRAZOLE SODIUM IV 40 MG VIAL IV PUSH ×2 (07:44→20:07)
--- NOTE | 2021-03-10 08:02 | PM.GYNPNOP ---
SQL BI DEVELOPER - A/P Assessment and plan (1) Hematemesis: Code(s): K92.0 - Hematemesis Status: Acute Assessment and Plan: GI to evaluate today at 1pm EGD continue to transfuse as Hb this am 6.4 (2) Anemia: Code(s): D64.9 - Anemia, unspecified Status: Acute Postoperative Procedures: Procedures Operation Date: 03/09/21 14:30 Actual Procedure Side Surgeon p Hysteroscopy, Dilation and Curettage with Merlene Endometrial Ablation Not Applicable Akosua Linares MD Operation Date: 03/10/21 13:30 <No data on this case meets the specified criteria> Postoperative day: 1 (s/p endometrial ablation, D&C hysteroscopy) Postoperative status: other (vaginal bleeding significantly better; minimal since procedure) Time Spent With Patient Time: Total time spent is greater than 50% in coordination of care (as documented) at patient's floor/unit and/or counseling patient: Time with patient: less than 15 minutes SQL BI DEVELOPER- PN:Subj Post-Op Subjective Date/time seen: 03/10/21 08:02 Interval history: Per patient and RN minimal bleeding vaginally except a small amount after BM noted. Patient does not have a peripad on. Complaint of generalized abdominal pain. Multiple BM with dark tarry appearance. Exam Const: General: anxious and ill appearing GI: Inspection: normal to inspection GI Palp: Yes abdominal tenderness (generalized, mild, no guarding or rebound) SQL BI DEVELOPER - PN: Obj Data Vital Signs Vital Signs: Vital Signs - 24 hr 03/09/21 08:15 03/09/21 09:50 03/09/21 10:05 Temperature 98.5 F 98.0 F 98.0 F Pulse Rate 88 102 H 99 Respiratory Rate 18 18 18 Blood Pressure 122/66 143/70 H 144/79 H Pulse Oximetry 100 100 99 03/09/21 11:05 03/09/21 12:05 03/09/21 13:36 Temperature 98.4 F 98.4 F 98.5 F Pulse Rate 105 H 100 109 H Respiratory Rate 18 18 18 Blood Pressure 135/89 145/73 H 122/61 Pulse Oximetry 100 100 100 03/09/21 14:00 03/09/21 14:04 03/09/21 14:55 Temperature 98.5 F 98.5 F 98.1 F Pulse Rate 118 H 118 H 116 H Respiratory Rate 20 20 20 Blood Pressure 110/61 110/61 118/61 Pulse Oximetry 100 100 100 03/09/21 15:48 03/09/21 16:00 03/09/21 16:15 Temperature 96.9 F L 97.7 F Pulse Rate 108 H 120 H 120 H Respiratory Rate 18 14 14 Blood Pressure 96/57 L 97/57 L 105/65 Pulse Oximetry 100 99 99 03/09/21 16:30 03/09/21 16:45 03/09/21 17:00 Temperature 97.9 F 97.5 F L 97.1 F L Pulse Rate 130 H 111 H 103 H Respiratory Rate 20 20 20 Blood Pressure 102/69 94/59 L 94/67 L Pulse Oximetry 100 100 100 03/09/21 17:15 03/09/21 17:30 03/09/21 19:00 Temperature 97.5 F L 97.2 F L Pulse Rate 109 H 102 H 107 H Respiratory Rate 18 18 18 Blood Pressure 105/81 108/74 Pulse Oximetry 100 100 100 03/09/21 20:00 03/09/21 21:55 03/09/21 22:00 Temperature 98.4 F Pulse Rate 140 H 120 H 108 H Respiratory Rate 23 H Blood Pressure 80/61 L 103/53 L Pulse Oximetry 100 03/09/21 23:53 03/10/21 00:00 03/10/21 00:09 Temperature 98.5 F 98.5 F 98.5 F Pulse Rate 117 H 106 H 117 H Respiratory Rate 21 H 21 H 21 H Blood Pressure 103/59 L 101/55 L 101/55 L Pulse Oximetry 97 97 97 03/10/21 00:21 03/10/21 02:00 03/10/21 03:09 Temperature 97.6 F 97.7 F Pulse Rate 104 H 86 100 Respiratory Rate 21 H 22 H Blood Pressure 110/50 L 111/55 L Pulse Oximetry 100 100 03/10/21 04:00 03/10/21 05:42 03/10/21 05:56 Temperature 97.8 F 97.8 F Pulse Rate 93 107 H 101 H Respiratory Rate 21 H 21 H Blood Pressure 108/55 L 108/55 L Pulse Oximetry 100 100 03/10/21 06:00 03/10/21 06:12 03/10/21 07:12 Temperature 97.7 F 98.7 F Pulse Rate 90 106 H 81 Respiratory Rate 16 22 H Blood Pressure 105/50 L 101/62 Pulse Oximetry 100 100 Intake/Output Intake/Output: Intake & Output 03/07/21 03/08/21 03/09/21 03/10/21 23:59 23:59 23:59 23:59 Intake Total 1700 2730 1700 1559 Output Total 175 1600 Balance 1700 2730 1525 -41 Meds/Results Medications: Active Medications Generic Name Dos
[2021-03-10] MEDS: LIDOCAINE HCL 1% LOCAL INJ 2 ML AMPUL 5 ML INFILTRATE (09:15)
--- NOTE | 2021-03-10 09:38 | WPDANESEPPF ---
Anes - Initial Pre Proc Eval Procedure: Operation Date: 03/10/21 13:30 Proposed Procedures p Esophagogastroduodenoscopy - Efraín Platt MD Date/Time: 03/10/21 09:38 Surgeon: Akosua Linares MD Pre Op Diagnosis: Vaginal bleed,anemia Patient Data Age: 40 Gender: F Height: 1.63 m Weight: 70.9 kg Last Vital Signs Temp 36.6 C 03/10/21 08:45 Pulse 88 03/10/21 08:45 Resp 16 03/10/21 08:45 BP 117/67 03/10/21 08:45 Pulse Ox 100 03/10/21 08:45 Allergies Allergy/AdvReac Type Severity Reaction Status Date / Time Penicillins Allergy Intermediate rash Verified 03/10/21 12:38 Home Medications Medication Instructions Recorded Confirmed Type pyridoxine (vitamin B6) [Vitamin 25 mg PO QAM 30 Days #15 tablet 10/13/20 Rx B-6] thiamine HCl (vitamin B1) [Vitamin 100 mg PO QAM 30 Days #30 tablet 10/13/20 Rx B-1] dicyclomine 10 mg capsule 10 mg PO QID PRN #30 cap 11/18/20 03/10/21 Rx furosemide 20 mg tablet 20 mg PO QAM #90 tablet 11/22/20 Rx furosemide 10 mg PO DAILY PRN 03/10/21 03/10/21 History Laboratory Tests 03/07/21 03/09/21 03/09/21 14:36 19:38 19:39 WBC 12.0 K/mm3 H K/mm3 (4.5-10.0) RBC 2.91 M/mm3 L M/mm3 (4.2-5.4) Hgb 8.4 g/dL L g/dL (12.0-15.0) Hct 24.8 % L % (37.0-47.0) MCV 85.2 fl fl (80-100) MCH 28.9 pg D pg (26-34) MCHC 33.9 g/dl g/dl (32-36) RDW 15.9 % H % (11.5-14.5) Plt Count 116 k/mm3 L D k/mm3 (150-375) MPV 11.4 fl H fl (7.4-10.4) Immature Gran % (Auto) 4.8 % H % (0-0.5) Neut % (Auto) 74.4 % H % (45.5-73.1) Lymph % (Auto) 9.8 % L % (18.3-44.2) Edwards % (Auto) 10.8 % H % (2.6-8.5) Eos % (Auto) 0.0 % % (0-4.4) Baso % (Auto) 0.2 % % (0.2-1.2) Lymph # (Auto) 1.18 K/mm3 K/mm3 (0.9-3.2) Edwards # (Auto) 1.3 K/mm3 H K/mm3 (0.1-0.6) Eos # (Auto) 0.0 K/mm3 K/mm3 (0-0.3) Baso # (Auto) 0.0 K/mm3 K/mm3 (0.0-0.1) Abs Immat Gran (auto) 0.58 K/mm3 H K/mm3 (0.00-0.031) Absolute Neuts (auto) 8.9 K/mm3 H K/mm3 (1.3-6.7) Absolute Nucleated RBC 0.1 K/mm3 H K/mm3 (0.0-0.012) Nucleated RBC % 1.1 % H % (0.0-0.2) PT INR APTT Fibrinogen 68 mg/dl L mg/dl (215-510) VBG pH VBG pCO2 VBG pO2 VBG HCO3 O2 Delivery Device O2 Liters/Min FiO2 Sodium Potassium Chloride Carbon Dioxide Anion Gap BUN Creatinine Estim Creat Clear Calc Estimated GFR Glucose Calcium Phosphorus Magnesium Total Bilirubin AST ALT Alkaline Phosphatase Total Protein Albumin Blood Type O Positive Antibody Screen Negative Crossmatch See Detail 03/09/21 03/09/21 03/09/21 19:39 19:40 19:40 WBC RBC Hgb Hct MCV MCH MCHC RDW Plt Count MPV Immature Gran % (Auto) Neut % (Auto) Lymph % (Auto) Edwards % (Auto) Eos % (Auto) Baso % (Auto) Lymph # (Auto) Edwards # (Auto) Eos # (Auto) Baso # (Auto) Abs Immat Gran (auto) Absolute Neuts (auto) Absolute Nucleated RBC Nucleated RBC % PT 21.4 Seconds H D Seconds (11.1-14.7) INR 1.9 APTT Fibrinogen VBG pH VBG pCO2 VBG pO2 V
--- NOTE | 2021-03-10 09:52 | WPDANESPN ---
Anes - Prog Note Post-Op Date/Time: 03/10/21 09:52 Cardiovascular status: normal Respiratory status: normal Airway patency: baseline Mental status: baseline Post-Op hydration status: other (management per IMU team) Vital Signs: Last Vital Signs Temp 36.6 C 03/10/21 08:45 Pulse 88 03/10/21 08:45 Resp 16 03/10/21 08:45 BP 117/67 03/10/21 08:45 Pulse Ox 100 03/10/21 08:45 Pain Score (VAS): 3 I/O: Intake & Output 03/09/21 03/10/21 03/10/21 23:59 07:59 15:59 Intake Total 550 1559 255 Output Total 100 1600 Balance 450 -41 255 Laboratory Tests 03/10/21 04:26 03/10/21 04:26 03/07/21 03/09/21 03/09/21 14:36 19:38 19:39 WBC 12.0 H RBC 2.91 L Hgb 8.4 L Hct 24.8 L MCV 85.2 MCH 28.9 D MCHC 33.9 RDW 15.9 H Plt Count 116 L D MPV 11.4 H Immature Gran % (Auto) 4.8 H Neut % (Auto) 74.4 H Lymph % (Auto) 9.8 L [place] % (Auto) 10.8 H Eos % (Auto) 0.0 Baso % (Auto) 0.2 Lymph # (Auto) 1.18 [place] # (Auto) 1.3 H Eos # (Auto) 0.0 Baso # (Auto) 0.0 Abs Immat Gran (auto) 0.58 H Absolute Neuts (auto) 8.9 H Absolute Nucleated RBC 0.1 H Nucleated RBC % 1.1 H PT INR APTT Fibrinogen 68 L VBG pH VBG pCO2 VBG pO2 VBG HCO3 O2 Delivery Device O2 Liters/Min FiO2 Sodium Potassium Chloride Carbon Dioxide Anion Gap BUN Creatinine Estim Creat Clear Calc Estimated GFR Glucose Calcium Phosphorus Magnesium Total Bilirubin AST ALT Alkaline Phosphatase Total Protein Albumin Blood Type O Positive Antibody Screen Negative Crossmatch See Detail 03/09/21 03/09/21 03/09/21 19:39 19:40 19:40 WBC RBC Hgb Hct MCV MCH MCHC RDW Plt Count MPV Immature Gran % (Auto) Neut % (Auto) Lymph % (Auto) [place] % (Auto) Eos % (Auto) Baso % (Auto) Lymph # (Auto) [place] # (Auto) Eos # (Auto) Baso # (Auto) Abs Immat Gran (auto) Absolute Neuts (auto) Absolute Nucleated RBC Nucleated RBC % PT 21.4 H D INR 1.9 APTT Fibrinogen VBG pH VBG pCO2 VBG pO2 VBG HCO3 O2 Delivery Device O2 Liters/Min FiO2 Sodium 131 L Potassium 4.0 Chloride 106 Carbon Dioxide 17 L Anion Gap 8 BUN 33 H D Creatinine 0.80 Estim Creat Clear Calc 83 Estimated GFR > 60 Glucose 183 H Calcium 6.8 L Phosphorus 2.5 Magnesium 1.3 L Total Bilirubin 5.2 H AST 69 H ALT 25 Alkaline Phosphatase 71 Total Protein 4.0 L Albumin 2.0 L Blood Type Antibody Screen Crossmatch 03/09/21 03/09/21 03/10/21 23:12 23:23 04:26 WBC RBC Hgb 7.8 L Hct 22.8 L MCV MCH MCHC RDW Plt Count MPV Immature Gran % (Auto) Neut % (Auto) Lymph % (Auto) [place] % (Auto) Eos % (Auto) Baso % (Auto) Lymph # (Auto) [place] # (Auto) Eos # (Auto) Baso # (Auto) Abs Immat Gran (auto) Absolute Neuts (auto) Absolute Nucleated RBC Nucleated RBC % PT INR APTT Fibrinogen VBG pH 7.401 H VBG pCO2 26.7 L* VBG pO2 47.0 H VBG HCO3 16.2 L O2 Delivery Device Room air O2 Liters/Min Not Reportable FiO2 21 Sodium 129 L Potassium 3.8 Chloride 106 Carbon Dioxide 16 L Anion Gap 7 L BUN 32 H Creatinine 0.80 Estim Creat Clear Calc 72 Estimated GFR > 60 Glucose 159 H Calcium 7.1 L Phosphorus Magnesium 2.1 Total Bilirubin 3.2 H AST 56 H ALT 23 Alkaline Phosphatase 61 Total Protein 3.0 L Albumin 1.9 L Blood Type Antibody Screen Crossmatch 03/10/21 03/10/21 04:26 04:26 WBC RBC Hgb 6.4 L* Hct 18.8 L* MCV MCH MCHC RDW Plt Count MPV Immature Gran % (Auto) Neut % (Auto) Lymph % (Auto) [place] % (Auto) Eos % (Auto
[2021-03-10 10:38] LABS: Basophils Percent Auto 0.2 % (0.2-1.2); Hematocrit 22.2 % (37.0-47.0); Hemoglobin 7.7 g/dL (12.0-15.0); Immature Granulocyte Percent A 2.1 % (0-0.5); Lymphocytes Absolute Auto 1.47 K/mm3 (0.9-3.2); Lymphocytes Percent Auto 15.1 % (18.3-44.2); Mean Corpuscular HGB Conc 34.7 g/dl (32-36); Mean Corpuscular Hemoglobin 30.1 pg (26-34); Mean Corpuscular Volume 86.7 fl (80-100); Mean Platelet Volume 10.9 fl (7.4-10.4); Monocytes Absolute Auto 1.9 K/mm3 (0.1-0.6); Monocytes Percent Auto 19.6 % (2.6-8.5); Neutrophils Absolute Auto 6.1 K/mm3 (1.3-6.7); Nucleated Red Blood Cells Absolute Auto 0.1 K/mm3 (0.0-0.012); Nucleated Red Blood Cells Perc 1.2 % (0.0-0.2); Platelet Count Result 80 k/mm3 (150-375); Red Blood Count 2.56 M/mm3 (4.2-5.4); Red Cell Distribution Width 16.8 % (11.5-14.5); White Blood Count 9.7 K/mm3 (4.5-10.0)
[2021-03-10 10:45] LABS: Anion Gap 7 mmol/L (8-16); Blood Urea Nitrogen 33 mg/dL (7-17); Calcium 7.2 mg/dL (8.4-10.2); Carbon Dioxide 19 mmol/L (22-30); Chloride 105 mmol/L (98-107); Estimated CRCL calculation 64 ml/min; Estimated Glomerular Filt Rate > 60; Glucose 137 mg/dL (65-110); Potassium 3.6 mmol/L (3.4-5.0); Sodium 131 mmol/L (137-145)
[2021-03-10 10:54] LABS: Fibrinogen 146 mg/dl (215-510)
--- NOTE | 2021-03-10 10:56 | PM.IMPN ---
Progress Note: A&P Assessment and Plan (1) Acute blood loss anemia: Code(s): D62 - Acute posthemorrhagic anemia Status: Acute Assessment and Plan: Secondary to heavy vaginal bleeding the last month or so in addition to GI blood loss. She has thus far received 10 units of packed red blood cells. Last transfusion this morning due to hgb decline to 6.4. H&H improved following transfusion to 7.7 and 22.2 respectively. Received tranexamic acid per POST DOCTORAL RESEARCHER On octreotide drip per GI Received 1 unit cryoprecipitate Monitor H&H q6h to ensure remaining stable. (2) Abnormal vaginal bleeding: Code(s): N93.9 - Abnormal uterine and vaginal bleeding, unspecified Status: Acute Assessment and Plan: Status post D&C hysteroscopy with endometrial ablation per Dr. Linares. Management per POST DOCTORAL RESEARCHER (3) Acute GI bleeding: Code(s): K92.2 - Gastrointestinal hemorrhage, unspecified Status: Acute Assessment and Plan: Initially with dark stools and now bright red blood per rectum. Possibly brisk upper GI bleed. She does have history of bleeding gastric ulcer Continue Protonix and octreotide drip. EGD this afternoon Management per gastroenterology (4) Alcoholic cirrhosis of liver: Qualifiers: Ascites presence: unspecified Qualified Code(s): K70.30 - Alcoholic cirrhosis of liver without ascites Code(s): K70.30 - Alcoholic cirrhosis of liver without ascites Status: Acute Assessment and Plan: Followed by hepatology at [facility]. Labs show evidence of synthetic dysfunction. Received 5 mg Vitamin K yesterday due to ongoing bleeding. (5) Transaminitis: Code(s): R74.01 - Elevation of levels of liver transaminase levels Status: Acute Assessment and Plan: Related to chronic liver disease. Followed by hepatology at [facility]. AST with downward trend Continue to monitor (6) Syncope: Code(s): R55 - Syncope and collapse Status: Acute Assessment and Plan: Patient reports syncope x2 earlier in the week. Most likely due to hypotension from hypovolemia due to profound anemia. Telemetry reviewed with normal sinus rhythm, rare PVC No further workup indicated (7) Electrolyte abnormality: Code(s): E87.8 - Other disorders of electrolyte and fluid balance, not elsewhere classified Status: Acute Assessment and Plan: CMP reviewed Hyponatremia improving. Sodium 131. Calcium low but corrected for albumin is 8.4 Mag low and was supplemented. Mag 2.0 today Subjective Date/time seen: 03/10/21 10:56 Interval history: Date of service: 03/10/2021 Janene Russell is a 40-year-old female with a history of liver cirrhosis secondary to alcohol abuse, hepatitis-C, gastric ulcer, anxiety, hypothyroidism, and paroxysmal atrial tachycardia who is seen in follow-up for vaginal bleeding and GI bleeding. She tells me that she is hurting all over today. As she was telling me her history, she mentioned several times that she was very concerned that people think she is lying about her symptoms. I told her that we are just trying to figure out what is going on and that there are no wrong answers, I just needed her to tell me what symptoms she has been having. She tells me that she is having a hard time remembering the timeline of things because her days are running together. Today she has been having bright red bleeding per rectum. She has bloody diarrhea and bright red blood when she is wiping. Yesterday, she was having dark stools. She says a couple days ago she had an episode of hematemesis but now she has not had any more episodes of vomiting. She has been dry heaving and feels constant nausea. She endorses diffuse abdominal pain, worsened in right mid-lower quadrant and spreading up towards right and left ribs. She feels her abdomen is bloated. She tells me that she saw her rn call center sometime over the past 6 month
[2021-03-10] MEDS: SODIUM CHLORIDE 0.9% IV 1,000 ML 125 ML IV CONT (12:13)
--- NOTE | 2021-03-10 12:22 | PC.NURSE ---
Patient to GI lab via stretcher. Report given to WANDER Moses.
[2021-03-10] MEDS: LACTATED RINGERS 1,000 ML 150 ML IV CONT (12:43)
[2021-03-10] MEDS: BENZOCAINE (*SP) 60 ML SPRAY CAN (HURRICAINE) 1 SPRAY MUCOUS MEM (13:18)
--- NOTE | 2021-03-10 14:25 | PC.NURSE ---
Patient returned to room following GI procedure. Report received from WANDER Peres.
[2021-03-10] MEDS: SALINE LOCK FLUSH 10 ML IV PUSH ×2 (14:52→20:08)
[2021-03-10] MEDS: SUCRALFATE SUSP 100 MG/ML 10 ML UDC 1000 MG PO ×2 (16:53→20:07)
[2021-03-10 17:07] LABS: Hematocrit 19.2 % (37.0-47.0); Hemoglobin 6.6 g/dL (12.0-15.0)
[2021-03-10 23:19] LABS: Hematocrit 23.6 % (37.0-47.0)
[2021-03-11] VITALS (17 sets, daily range): BP systolic 113–122; BP diastolic 55–68; PULSE 82–120; RESP 16–19; TEMP 35.8–37.2; O2SAT 98–100
[2021-03-11] MEDS: TRANEXAMIC ACID 1,000MG/ISO100 1,000 MG/100 ML BAG 200 MG IVPB ×5 (00:39→23:42)
[2021-03-11] MEDS: ONDANSETRON INJ 4 MG/2 ML VIAL IV PUSH ×3 (03:44→16:51)
[2021-03-11] MEDS: SALINE LOCK FLUSH 10 ML IV PUSH ×3 (06:20→20:55)
[2021-03-11] MEDS: SUCRALFATE SUSP 100 MG/ML 10 ML UDC 1000 MG PO ×4 (06:20→20:55)
[2021-03-11 06:42] LABS: Hematocrit 21.3 % (37.0-47.0); Immature Platelet Fraction Pct 4.6 % (0.9-11.2); Mean Corpuscular HGB Conc 32.9 g/dl (32-36); Mean Corpuscular Hemoglobin 29.4 pg (26-34); Mean Corpuscular Volume 89.5 fl (80-100); Mean Platelet Volume 10.6 fl (7.4-10.4); Platelet Count Result 61 k/mm3 (150-375); Red Blood Count 2.38 M/mm3 (4.2-5.4); Red Cell Distribution Width 17.3 % (11.5-14.5); White Blood Count 6.2 K/mm3 (4.5-10.0)
[2021-03-11 07:01] LABS: Anion Gap 4 mmol/L (8-16); Blood Urea Nitrogen 21 mg/dL (7-17); Calcium 6.7 mg/dL (8.4-10.2); Carbon Dioxide 18 mmol/L (22-30); Chloride 105 mmol/L (98-107); Estimated CRCL calculation 85 ml/min; Estimated Glomerular Filt Rate > 60; Glucose 126 mg/dL (65-110); Magnesium 1.9 mg/dL (1.6-2.3); Potassium 3.2 mmol/L (3.4-5.0); Sodium 127 mmol/L (137-145)
[2021-03-11] MEDS: POTASSIUM CHLORIDE 20 MEQ TABLET PO (08:08)
[2021-03-11] MEDS: PANTOPRAZOLE SODIUM IV 40 MG VIAL IV PUSH ×2 (08:08→20:55)
--- NOTE | 2021-03-11 09:59 | P.PNIM_ITS ---
Progress Note: A&P Assessment and Plan (1) Acute blood loss anemia: Code(s): D62 - Acute posthemorrhagic anemia Status: Acute Assessment and Plan: Secondary to heavy vaginal bleeding the last month or so in addition to GI blood loss. She has thus far received 11 units of packed red blood cells. * Last transfusion was last night. * Hgb 7.0 this morning. No further bleeding. Will recheck in 6 hours and transf use if Hgb declines below 7.0 * Received tranexamic acid per WOOD CARVING MACHINE OPERATOR * Received 1 unit cryoprecipitate * Monitor H&H q6h to ensure remaining stable. (2) Abnormal vaginal bleeding: Code(s): N93.9 - Abnormal uterine and vaginal bleeding, unspecified Status: Acute Assessment and Plan: Status post D&C hysteroscopy with endometrial ablation per Dr. Linares. * Management per WOOD CARVING MACHINE OPERATOR (3) Acute GI bleeding: Code(s): K92.2 - Gastrointestinal hemorrhage, unspecified Status: Acute Assessment and Plan: Initially with melena and then developed bright red bleeding per rectum. * EGD showed single cratered ulcer that was cauterized with gold probe, likely to be the source of bleeding, as well as esophagitis and gastritis * Continue IV Protonix b.i.d. * Octreotide drip discontinued per GI * Management per gastroenterology (4) Alcoholic cirrhosis of liver: Qualifiers: Ascites presence: unspecified Qualified Code(s): K70.30 - Alcoholic cirrhosis of liver without ascites Code(s): K70.30 - Alcoholic cirrhosis of liver without ascites Status: Acute Assessment and Plan: Followed by hepatology at [facility]. * Labs show evidence of synthetic dysfunction. Platelets trending down. * Received 5 mg Vitamin K 01/07 due to ongoing bleeding. (5) Transaminitis: Code(s): R74.01 - Elevation of levels of liver transaminase levels Status: Acute Assessment and Plan: Related to chronic liver disease. Followed by hepatology at [facility]. * AST with downward trend, ALT normalized * Continue to monitor (6) Syncope: Code(s): R55 - Syncope and collapse Status: Acute Assessment and Plan: Patient reports syncope x2 earlier in the week. Most likely due to hypotension from hypovolemia due to profound anemia. * Telemetry reviewed with normal sinus rhythm, rare PVC * No further workup indicated (7) Electrolyte abnormality: Code(s): E87.8 - Other disorders of electrolyte and fluid balance, not elsewhere c lassified Status: Acute Assessment and Plan: CMP reviewed * Hyponatremia: sodium ranging 127-135. Repeat sodium this afternoon and continue to trend * Hypocalcemia: Calcium low but corrected for albumin is within normal limits. Awaiting albumin levels today. * Hypomagnesemia: Mag was supplemented and is 1.9 today * Hypokalemia: Potassium 3.2 today, administer 20 mEq PO KCl Subjective Date/time seen: 03/11/21 09:59 Interval history: Date of service: 03/11/2021 Janene Russell is a 40-year-old female with a history of liver cirrhosis secondary to alcohol abuse, hepatitis-C, gastric ulcer, anxiety, hypothyroidism, and paroxysmal atrial tachycardia who is seen in follow-up for vaginal bleeding and GI bleeding. She says she feels ?like a new woman? and is feeling much bet ter today. She had a formed bowel movement this morning and said there was a small amount of dark blood in the toilet but otherwise she has not had any further episodes of bleeding. No longer feeling dizzy or lightheaded. No palpitations. She does Still's feel
--- NOTE | 2021-03-11 09:59 | PM.IMPN ---
Progress Note: A&P Assessment and Plan (1) Acute blood loss anemia: Code(s): D62 - Acute posthemorrhagic anemia Status: Acute Assessment and Plan: Secondary to heavy vaginal bleeding the last month or so in addition to GI blood loss. She has thus far received 11 units of packed red blood cells. Last transfusion was last night. Hgb 7.0 this morning. No further bleeding. Will recheck in 6 hours and transfuse if Hgb declines below 7.0 Received tranexamic acid per TOY STUFFER Received 1 unit cryoprecipitate Monitor H&H q6h to ensure remaining stable. (2) Abnormal vaginal bleeding: Code(s): N93.9 - Abnormal uterine and vaginal bleeding, unspecified Status: Acute Assessment and Plan: Status post D&C hysteroscopy with endometrial ablation per Dr. Linares. Management per TOY STUFFER (3) Acute GI bleeding: Code(s): K92.2 - Gastrointestinal hemorrhage, unspecified Status: Acute Assessment and Plan: Initially with melena and then developed bright red bleeding per rectum. EGD showed single cratered ulcer that was cauterized with gold probe, likely to be the source of bleeding, as well as esophagitis and gastritis Continue IV Protonix b.i.d. Octreotide drip discontinued per GI Management per gastroenterology (4) Alcoholic cirrhosis of liver: Qualifiers: Ascites presence: unspecified Qualified Code(s): K70.30 - Alcoholic cirrhosis of liver without ascites Code(s): K70.30 - Alcoholic cirrhosis of liver without ascites Status: Acute Assessment and Plan: Followed by hepatology at [facility]. Labs show evidence of synthetic dysfunction. Platelets trending down. Received 5 mg Vitamin K 01/07 due to ongoing bleeding. (5) Transaminitis: Code(s): R74.01 - Elevation of levels of liver transaminase levels Status: Acute Assessment and Plan: Related to chronic liver disease. Followed by hepatology at [facility]. AST with downward trend, ALT normalized Continue to monitor (6) Syncope: Code(s): R55 - Syncope and collapse Status: Acute Assessment and Plan: Patient reports syncope x2 earlier in the week. Most likely due to hypotension from hypovolemia due to profound anemia. Telemetry reviewed with normal sinus rhythm, rare PVC No further workup indicated (7) Electrolyte abnormality: Code(s): E87.8 - Other disorders of electrolyte and fluid balance, not elsewhere classified Status: Acute Assessment and Plan: CMP reviewed Hyponatremia: sodium ranging 127-135. Repeat sodium this afternoon and continue to trend Hypocalcemia: Calcium low but corrected for albumin is within normal limits. Awaiting albumin levels today. Hypomagnesemia: Mag was supplemented and is 1.9 today Hypokalemia: Potassium 3.2 today, administer 20 mEq PO KCl Subjective Date/time seen: 03/11/21 09:59 Interval history: Date of service: 03/11/2021 Janene Russell is a 40-year-old female with a history of liver cirrhosis secondary to alcohol abuse, hepatitis-C, gastric ulcer, anxiety, hypothyroidism, and paroxysmal atrial tachycardia who is seen in follow-up for vaginal bleeding and GI bleeding. She says she feels ?like a new woman? and is feeling much better today. She had a formed bowel movement this morning and said there was a small amount of dark blood in the toilet but otherwise she has not had any further episodes of bleeding. No longer feeling dizzy or lightheaded. No palpitations. She does Still's feel somewhat weak and fatigued. She endorses constant nausea but has not had any episodes of emesis. She is tolerating her diet. She denies abdominal pain. No vaginal bleeding. No hematuria. Denies urinary symptoms. Review of Systems Review of Systems: All systems reviewed & are unremarkable except as noted in HPI and below Exam Narrative: Ms. Russell is a well-nourished, well-appearing 40-year-old fe
--- NOTE | 2021-03-11 10:50 | PM.GYNPNOP ---
COLLEGE PRESIDENT - A/P Postoperative Procedures: Procedures Operation Date: 03/09/21 14:30 Actual Procedure Side Surgeon p Hysteroscopy, Dilation and Curettage with Merlene Endometrial Ablation Not Applicable Akosua Linares MD Operation Date: 03/10/21 13:30 Actual Procedure Side Surgeon p Esophagogastroduodenoscopy WITH GOLD PROBE TO GASTRIC ULCER, GASTRIC BIOPSIES, GASTRIC ULCER BIOPSIES Efraín Platt MD Postoperative day: 2 Postoperative status: doing well Postoperative plan: routine post-op care Time Spent With Patient Time: Total time spent is greater than 50% in coordination of care (as documented) at patient's floor/unit and/or counseling patient: Time with patient: 15 - 25 minutes COLLEGE PRESIDENT- PN:Subj Post-Op Subjective Date/time seen: 03/11/21 10:50 No further vaginal bleeding/minimal discharge. Overall feels well. Desires to go home when able/stable. Interval history: Date of service: 03/11/2021 Janene Russell is a 40-year-old female with a history of liver cirrhosis secondary to alcohol abuse, hepatitis-C, gastric ulcer, anxiety, hypothyroidism, and paroxysmal atrial tachycardia who is seen in follow-up for vaginal bleeding and GI bleeding. She says she feels ?like a new woman? and is feeling much better today. She had a formed bowel movement this morning and said there was a small amount of dark blood in the toilet but otherwise she has not had any further episodes of bleeding. No longer feeling dizzy or lightheaded. No palpitations. She does Still's feel somewhat weak and fatigued. She endorses constant nausea but has not had any episodes of emesis. She is tolerating her diet. She denies abdominal pain. No vaginal bleeding. No hematuria. Denies urinary symptoms. COLLEGE PRESIDENT - PN: Obj Data Vital Signs Vital Signs: Vital Signs - 24 hr 03/10/21 12:00 03/10/21 12:41 03/10/21 13:30 Temperature 97.3 F L 97.5 F L Pulse Rate 84 92 81 Respiratory Rate 18 20 28 H Blood Pressure 116/64 112/60 91/53 L Pulse Oximetry 100 100 100 03/10/21 13:40 03/10/21 13:50 03/10/21 16:00 Temperature 97 F L Pulse Rate 77 75 106 H Respiratory Rate 13 12 16 Blood Pressure 103/59 L 120/64 123/72 Pulse Oximetry 100 100 100 03/10/21 18:00 03/10/21 19:57 03/10/21 19:59 Temperature 98.8 F 98.8 F Pulse Rate 98 95 95 Respiratory Rate 16 16 Blood Pressure 101/72 101/72 Pulse Oximetry 94 94 03/10/21 20:00 03/10/21 20:15 03/10/21 21:15 Temperature 98.8 F 97.9 F Pulse Rate 89 81 88 Respiratory Rate 18 17 Blood Pressure 111/76 106/54 L Pulse Oximetry 99 100 03/10/21 22:00 03/10/21 22:28 03/10/21 23:11 Temperature 98.3 F 98.8 F Pulse Rate 85 84 108 H Respiratory Rate 19 17 Blood Pressure 114/55 L 118/73 Pulse Oximetry 100 96 03/11/21 00:00 03/11/21 02:00 03/11/21 03:51 Temperature 98.3 F Pulse Rate 87 86 97 Respiratory Rate 16 Blood Pressure 113/62 Pulse Oximetry 100 03/11/21 04:00 03/11/21 05:54 03/11/21 06:43 Temperature 98.9 F Pulse Rate 82 83 93 Respiratory Rate 19 Blood Pressure 122/59 L Pulse Oximetry 100 03/11/21 08:00 03/11/21 10:00 Temperature Pulse Rate 90 89 Respiratory Rate Blood Pressure Pulse Oximetry Intake/Output Intake/Output: Intake & Output 03/08/21 03/09/21 03/10/21 03/11/21 23:59 23:59 23:59 23:59 Intake Total 2730 1700 4156 1133 Output Total 175 4000 175 Balance 2730 1525 156 958 Meds/Results Medications: Active Medications Generic Name Dose Route Start Last Admin Trade Name Freq PRN Reason Stop Dose Admin Acetaminophen 650 mg 03/07/21 16:52 03/10/21 07:40 Acetaminophen 325 Mg Tablet PO 650 mg Q4H PRN Administration Mild Pain (1-3) or Fever Tranexamic Acid/Sodium Chloride 1,000 mg in 100 mls @ 200 mls/hr 03/09/21 13:00 03/11/21 06:50 Tranexamic Acid 1,000mg/[id number] IVPB Infused Q6HR SUKHDEV Infusion Ondansetron HCl 4 mg 03/07/21 16:52 03/11/21 03:44 Ondansetron Inj 4 Mg/2 Ml
[2021-03-11 11:58] LABS: Hematocrit 23.1 % (37.0-47.0); Hemoglobin 7.9 g/dL (12.0-15.0)
[2021-03-11] MEDS: ACETAMINOPHEN 325 MG TABLET 650 MG PO ×2 (11:59→18:16)
[2021-03-11 12:13] LABS: Alanine Aminotransferase 64 U/L (4-35); Albumin Level 2.3 g/dL (3.5-5.1); Albumin Level 2.4 g/dL (3.5-5.1); Alkaline Phosphatase 90 U/L (38-126); Aspartate Amino Transferase 218 U/L (14-36); Bilirubin Direct 0.5 mg/dL (0-0.3); Bilirubin,Total 2.8 mg/dL (0.2-1.3); Calcium 7.2 mg/dL (8.4-10.2); Sodium 128 mmol/L (137-145)
--- NOTE | 2021-03-11 12:20 | WPDGIPROGNO ---
Progress Note: A&P Assessment and Plan (1) Acute gastric ulcer: Qualifiers: Gastric ulcer complication status: with hemorrhage Qualified Code(s): K25.0 - Acute gastric ulcer with hemorrhage Code(s): K25.3 - Acute gastric ulcer without hemorrhage or perforation Status: Acute Assessment and Plan: egd yesterday, non-bleeding ulcer but dark spot treated with gold probe, also found esophagitis continue with protonix twice daily also will need to stop drinking altogether tolerating diet egd in 3 months (2) GI bleed: Qualifiers: GI bleed type/associated pathology: gastric ulcer Qualified Code(s): K25.4 - Chronic or unspecified gastric ulcer with hemorrhage Code(s): K92.2 - Gastrointestinal hemorrhage, unspecified Status: Acute Assessment and Plan: on medical treatment egd in 3 months to assess healing (3) Acute blood loss anemia: Code(s): D62 - Acute posthemorrhagic anemia Status: Acute Assessment and Plan: s/p blood transfusion no more obvious sign of bleeding continue to monitor h/h (4) Abnormal vaginal bleeding: Code(s): N93.9 - Abnormal uterine and vaginal bleeding, unspecified Status: Acute Assessment and Plan: treated by ob gyn (5) Syncope: Code(s): R55 - Syncope and collapse Status: Acute Assessment and Plan: on presentation after acute anemia (6) Alcoholic cirrhosis of liver: Qualifiers: Ascites presence: unspecified Qualified Code(s): K70.30 - Alcoholic cirrhosis of liver without ascites Code(s): K70.30 - Alcoholic cirrhosis of liver without ascites Status: Acute Assessment and Plan: with chronic elevated liver enzymes will need 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 Review of Systems Review of Systems: All systems reviewed & are unremarkable except as noted in HPI and below Exam Const: General: comfortable and no acute distress Other: bruise of left forehead and eyelid- healing HENMT: General nose exam: Normal nares present Eyes: Sclera: sclerae normal Neck: Neck: supple Resp: Auscultation: clear to auscultation bilaterally Cardio: Rate: regular rate GI: GI Palp: Yes Soft to palpation, No Tenderness to palpation present (GI) and No Guarding due to palpation present (GI) Auscultation: normal bowel sounds Skin: Other: pale Neuro: Speech: normal speech Motor exam (neuro): Normal motor muscle tone present throughout Extrem: General: normal to inspection Psych: Mental Status: mental status grossly normal Objective Data Vital Signs Vital Signs: Vital Signs - 24 hr 03/10/21 12:41 03/10/21 13:30 03/10/21 13:40 Temperature 97.5 F L Pulse Rate 92 81 77 Respiratory Rate 20 28 H 13 Blood Pressure 112/60 91/53 L 103/59 L Pulse Oximetry 100 100 100 03/10/21 13:50 03/10/21 16:00 03/10/21 18:00 Temperature 97 F L Pulse Rate 75 106 H 98 Respiratory Rate 12 16 Blood Pressure 120/64 123/72 Pulse Oximetry 100 100 03/10/21 19:57 03/10/21 19:59 03/10/21 20:00 Temperature 98.8 F 98.8 F Pulse Rate 95 95 89 Respiratory Rate 16 16 Blood Pressure 101/72 101/72 Pulse Oximetry 94 94 03/10/21 20:15 03/10/21 21:15 03/10/21 22:00 Temperature 98.8 F 97.9 F Pulse Rate 81 88 85 Respiratory Rate 18 17 Blood Pressure 111/76 106/54 L Pulse Oximetry 99 100 03/10/21 22:28 03/10/21 23:11 03/11/21 00:00 Temperature 98.3 F 98.8 F Pulse Rate 84 108 H 87 Respiratory Rate 19 17 Blood Pressure 114/55 L 118/73 Pulse Oximetry 100 96 03/11/21 02:00 03/11/21 03:51 03/11/21 04:00 Temperature 98.3 F Pulse Rate 86 97 82 Respiratory Rate 16 Blood Pressure 113/62 Pulse Oximetry 1
[2021-03-11 17:20] LABS: Hemoglobin 7.8 g/dL (12.0-15.0)
[2021-03-12] VITALS: PULSE 89
[2021-03-12] MEDS: ACETAMINOPHEN 325 MG TABLET 650 MG PO ×2 (00:45→06:53)
[2021-03-12] MEDS: ONDANSETRON INJ 4 MG/2 ML VIAL IV PUSH ×2 (00:45→06:53)
[2021-03-12 02:00] VITALS: PULSE 87
[2021-03-12 04:00] VITALS: PULSE 85
[2021-03-12 04:59] LABS: Hematocrit 23.6 % (37.0-47.0); Hemoglobin 7.5 g/dL (12.0-15.0); Immature Platelet Fraction Pct 3.2 % (0.9-11.2); Mean Corpuscular HGB Conc 31.8 g/dl (32-36); Mean Corpuscular Hemoglobin 30.1 pg (26-34); Mean Corpuscular Volume 94.8 fl (80-100); Mean Platelet Volume 10.9 fl (7.4-10.4); Platelet Count Result 66 k/mm3 (150-375); Red Blood Count 2.49 M/mm3 (4.2-5.4); Red Cell Distribution Width 17.6 % (11.5-14.5); White Blood Count 4.4 K/mm3 (4.5-10.0)
[2021-03-12 05:15] VITALS: BP 117/68; PULSE 100; RESP 17; TEMP 36.6; O2SAT 100
[2021-03-12 05:36] LABS: Alanine Aminotransferase 63 U/L (4-35); Albumin Level 2.4 g/dL (3.5-5.1); Alkaline Phosphatase 117 U/L (38-126); Anion Gap 8 mmol/L (8-16); Aspartate Amino Transferase 153 U/L (14-36); Bilirubin,Total 2.7 mg/dL (0.2-1.3); Blood Urea Nitrogen 14 mg/dL (7-17); Calcium 7.2 mg/dL (8.4-10.2); Carbon Dioxide 17 mmol/L (22-30); Chloride 105 mmol/L (98-107); Estimated CRCL calculation 97 ml/min; Estimated Glomerular Filt Rate > 60; Glucose 120 mg/dL (65-110); Potassium 3.1 mmol/L (3.4-5.0); Sodium 130 mmol/L (137-145)
[2021-03-12 06:00] VITALS: PULSE 82
[2021-03-12] MEDS: SALINE LOCK FLUSH 10 ML IV PUSH (06:52)
[2021-03-12] MEDS: TRANEXAMIC ACID 1,000MG/ISO100 1,000 MG/100 ML BAG 200 MG IVPB (06:52)
[2021-03-12] MEDS: SUCRALFATE SUSP 100 MG/ML 10 ML UDC 1000 MG PO (06:52)
--- NOTE | 2021-03-12 07:32 | PM.OBDSVD ---
DS: Admitting Diagnosis Discharge Date 03/12/2021 Admitting Diagnosis vaginal bleeding OB - DS: Summary OB Procedures : Other OB Procedures Intrapartum: Other OB Procedures: : Other Peripartum Data Procedures: Procedures Operation Date: 03/09/21 14:30 Actual Procedure Side Surgeon p Hysteroscopy, Dilation and Curettage with Merlene Endometrial Ablation Not Applicable Akosua Linares MD Operation Date: 03/10/21 13:30 Actual Procedure Side Surgeon p Esophagogastroduodenoscopy WITH GOLD PROBE TO GASTRIC ULCER, GASTRIC BIOPSIES, GASTRIC ULCER BIOPSIES Efraín Platt MD Time Spent with Patient Time attestation: Total time spent providing and/or coordinating discharge services: DS: Data Data Completed and Pending Pending studies at discharge: Pending at discharge 03/09/21 15:38 Surgical [PTH] Routine 03/10/21 13:29 Surgical [PTH] Routine Labs on day of discharge: Labs from last 24 hours 03/12/21 03/12/21 03/11/21 04:26 04:26 16:59 WBC 4.4 L RBC 2.49 L Hgb 7.5 L 7.8 L Hct 23.6 L 23.0 L MCV 94.8 D MCH 30.1 MCHC 31.8 L RDW 17.6 H Plt Count 66 L MPV 10.9 H % Immature Plt Fraction 3.2 Sodium 130 L Potassium 3.1 L Chloride 105 Carbon Dioxide 17 L Anion Gap 8 BUN 14 D Creatinine 0.70 Estim Creat Clear Calc 97 Estimated GFR > 60 Glucose 120 H Calcium 7.2 L Total Bilirubin 2.7 H Direct Bilirubin AST 153 H ALT 63 H Alkaline Phosphatase 117 Total Protein 4.0 L Albumin 2.4 L 03/11/21 03/11/21 03/11/21 11:53 11:53 11:53 WBC RBC Hgb 7.9 L Hct 23.1 L MCV MCH MCHC RDW Plt Count MPV % Immature Plt Fraction Sodium 128 L Potassium Chloride Carbon Dioxide Anion Gap BUN Creatinine Estim Creat Clear Calc Estimated GFR Glucose Calcium 7.2 L Total Bilirubin 2.8 H Direct Bilirubin 0.5 H AST 218 H ALT 64 H Alkaline Phosphatase 90 Total Protein 4.0 L Albumin 2.4 L 2.3 L Discharge Plan Discharge Attending physician on discharge: Esvin Rawls Consulting providers: Roxy Armstrong ; Efraín Platt ; Rhonda Rausch Discharging Clinician: Esvin Rawls Patient Disposition: Home, Self-Care Activity: as tolerated Diet: as tolerated Patient Instructions: Antibiotic Form Stand Alone Forms: General Discharge Information Follow-up/Referrals: Akosua Linares MD [Physician] - 2 Weeks Discharge Medications: Continued furosemide 20 mg tablet 20 mg PO DAILY PRN (Reason: Edema) RF: 0 Date of admission: 03/08/21 10:34 Primary Care Provider: Janene Jasmine Admitting Provider: Akosua Linares Attending physician on admission: Akosua Linares Condition: Stable
[2021-03-12 08:00] VITALS: BP 116/56; PULSE 88; RESP 16; TEMP 36.5; O2SAT 100
--- NOTE | 2021-03-12 08:00 | P.PNIM_ITS ---
Progress Note: A&P Assessment and Plan (1) Acute blood loss anemia: Code(s): D62 - Acute posthemorrhagic anemia Status: Acute Assessment and Plan: Secondary to heavy vaginal bleeding the last month or so in addition to GI blood loss. * She required a total of 11 units of packed red blood cells during admission. * Hgb remained stable following ablation and EGD with cauterization. * Hgb 7.5 today. * Repeat H&H in 1 week to ensure remaining stable * Received tranexamic acid per LAMINATION INSPECTOR * Received 1 unit cryoprecipitate (2) Abnormal vaginal bleeding: Code(s): N93.9 - Abnormal uterine and vaginal bleeding, unspecified Status: Acute Assessment and Plan: Status post D&C hysteroscopy with endometrial ablation per Dr. Linares. * Management per LAMINATION INSPECTOR (3) Acute GI bleeding: Code(s): K92.2 - Gastrointestinal hemorrhage, unspecified Status: Acute Assessment and Plan: Resolved. Initially with melena and then developed bright red bleeding per rectum. * EGD showed single cratered ulcer that was cauterized with gold probe, likely to be the source of bleeding, as well as esophagitis and gastritis * Continue Protonix b.i.d. * Management per gastroenterology (4) Alcoholic cirrhosis of liver: Qualifiers: Ascites presence: unspecified Qualified Code(s): K70.30 - Alcoholic cirrhosis of liver without ascites Code(s): K70.30 - Alcoholic cirrhosis of liver without ascites Status: Acute Assessment and Plan: Followed by hepatology at [facility]. * Labs show evidence of synthetic dysfunction. * Received 5 mg Vitamin K 01/07 due to ongoing bleeding. * Follow up with informal waiter/waitress (5) Transaminitis: Code(s): R74.01 - Elevation of levels of liver transaminase levels Status: Acute Assessment and Plan: Related to chronic liver disease. Followed by hepatology at [facility]. * AST imrpoved, ALT remaining stable * Continue to monitor (6) Syncope: Code(s): R55 - Syncope and collapse Status: Acute Assessment and Plan: Patient reports syncope x2 earlier in the week. Most likely due to hypotension from hypovolemia due to profound anemia. * Telemetry reviewed with normal sinus rhythm, rare PVC * No further workup indicated * Fall precautions (7) Electrolyte abnormality: Code(s): E87.8 - Other disorders of electrolyte and fluid balance, not elsewhere classified Status: Acute Assessment and Plan: CMP reviewed * Hyponatremia: sodium ranging 127-135. Sodium 130 today * Hypocalcemia: Calcium low but corrected for albumin is within normal limits. * Hypomagnesemia: Mag was supplemented and normalized * Hypokalemia: Potassium 3.1 today. Administer 40 mEq PO KCl. Continue PO KCl 20 mEq PO x1 week on discharge, then follow up with PCP Subjective Date/time seen: 03/12/21 08:00 Interval history: Date of service: 03/12/2021 Janene Russell is a 40-year-old female with a history of liver cirrhosis secondary to alcohol abuse, hepatitis-C, gastric ulcer, anxiety, hypothyroidism, and paroxysmal atrial tachycardia who is seen in follow-up for vaginal bleeding and GI bleeding. She is eager for discharge home today. No further bleeding. She is feeling strong. Getting around well. States she plans to avoid all alcohol use. She will follow up with her informal waiter/waitress. Review of Systems Review of Systems: All systems reviewed & are unremarkable except as noted in HPI and below Exam
--- NOTE | 2021-03-12 08:00 | PM.IMPN ---
Progress Note: A&P Assessment and Plan (1) Acute blood loss anemia: Code(s): D62 - Acute posthemorrhagic anemia Status: Acute Assessment and Plan: Secondary to heavy vaginal bleeding the last month or so in addition to GI blood loss. She required a total of 11 units of packed red blood cells during admission. Hgb remained stable following ablation and EGD with cauterization. Hgb 7.5 today. Repeat H&H in 1 week to ensure remaining stable Received tranexamic acid per STOCK UNLOADER Received 1 unit cryoprecipitate (2) Abnormal vaginal bleeding: Code(s): N93.9 - Abnormal uterine and vaginal bleeding, unspecified Status: Acute Assessment and Plan: Status post D&C hysteroscopy with endometrial ablation per Dr. Linares. Management per STOCK UNLOADER (3) Acute GI bleeding: Code(s): K92.2 - Gastrointestinal hemorrhage, unspecified Status: Acute Assessment and Plan: Resolved. Initially with melena and then developed bright red bleeding per rectum. EGD showed single cratered ulcer that was cauterized with gold probe, likely to be the source of bleeding, as well as esophagitis and gastritis Continue Protonix b.i.d. Management per gastroenterology (4) Alcoholic cirrhosis of liver: Qualifiers: Ascites presence: unspecified Qualified Code(s): K70.30 - Alcoholic cirrhosis of liver without ascites Code(s): K70.30 - Alcoholic cirrhosis of liver without ascites Status: Acute Assessment and Plan: Followed by hepatology at [facility]. Labs show evidence of synthetic dysfunction. Received 5 mg Vitamin K 01/07 due to ongoing bleeding. Follow up with cell stripper (5) Transaminitis: Code(s): R74.01 - Elevation of levels of liver transaminase levels Status: Acute Assessment and Plan: Related to chronic liver disease. Followed by hepatology at [facility]. AST imrpoved, ALT remaining stable Continue to monitor (6) Syncope: Code(s): R55 - Syncope and collapse Status: Acute Assessment and Plan: Patient reports syncope x2 earlier in the week. Most likely due to hypotension from hypovolemia due to profound anemia. Telemetry reviewed with normal sinus rhythm, rare PVC No further workup indicated Fall precautions (7) Electrolyte abnormality: Code(s): E87.8 - Other disorders of electrolyte and fluid balance, not elsewhere classified Status: Acute Assessment and Plan: CMP reviewed Hyponatremia: sodium ranging 127-135. Sodium 130 today Hypocalcemia: Calcium low but corrected for albumin is within normal limits. Hypomagnesemia: Mag was supplemented and normalized Hypokalemia: Potassium 3.1 today. Administer 40 mEq PO KCl. Continue PO KCl 20 mEq PO x1 week on discharge, then follow up with PCP Subjective Date/time seen: 03/12/21 08:00 Interval history: Date of service: 03/12/2021 Janene Russell is a 40-year-old female with a history of liver cirrhosis secondary to alcohol abuse, hepatitis-C, gastric ulcer, anxiety, hypothyroidism, and paroxysmal atrial tachycardia who is seen in follow-up for vaginal bleeding and GI bleeding. She is eager for discharge home today. No further bleeding. She is feeling strong. Getting around well. States she plans to avoid all alcohol use. She will follow up with her cell stripper. Review of Systems Review of Systems: All systems reviewed & are unremarkable except as noted in HPI and below Exam Narrative: Ms. Russell is a well-nourished, well-appearing 40-year-old female who is sitting up in bed. She appears comfortable and is in NARD. Neuro: awake, alert and oriented x4, speech clear, no focal neuro deficits noted HEENMT: normocephalic, healing bruise on left forehead and eyelid, EOMI Neck: supple, no lymphadenopathy Respiratory: clear to auscultation bilaterally, nonlabored breathing Cardio: regular rate, regular rhythm with S1-S2 Abdomen: nondi
[2021-03-12] MEDS: POTASSIUM CHLORIDE 20 MEQ TABLET 40 MEQ PO (08:20)
[2021-03-12] MEDS: PANTOPRAZOLE SODIUM IV 40 MG VIAL IV PUSH (08:25)
--- NOTE | 2021-03-12 09:00 | WPDGIPROGNO ---
Progress Note: A&P Assessment and Plan (1) Acute gastric ulcer: Qualifiers: Gastric ulcer complication status: with hemorrhage Qualified Code(s): K25.0 - Acute gastric ulcer with hemorrhage Code(s): K25.3 - Acute gastric ulcer without hemorrhage or perforation Status: Acute Assessment and Plan: egd showed non-bleeding ulcer but dark spot treated with gold probe, also found esophagitis continue with protonix twice daily also will need to stop drinking altogether tolerating diet, ok to go home- no more bleeding egd in 3 months (2) GI bleed: Qualifiers: GI bleed type/associated pathology: gastric ulcer Qualified Code(s): K25.4 - Chronic or unspecified gastric ulcer with hemorrhage Code(s): K92.2 - Gastrointestinal hemorrhage, unspecified Status: Acute Assessment and Plan: on medical treatment egd in 3 months to assess healing (3) Acute blood loss anemia: Code(s): D62 - Acute posthemorrhagic anemia Status: Acute Assessment and Plan: s/p blood transfusion- also had significan vaginal bleeding no more obvious sign of bleeding iron supplement (4) Abnormal vaginal bleeding: Code(s): N93.9 - Abnormal uterine and vaginal bleeding, unspecified Status: Acute Assessment and Plan: treated by java software developer (5) Syncope: Code(s): R55 - Syncope and collapse Status: Acute Assessment and Plan: on presentation after acute anemia (6) Alcoholic cirrhosis of liver: Qualifiers: Ascites presence: unspecified Qualified Code(s): K70.30 - Alcoholic cirrhosis of liver without ascites Code(s): K70.30 - Alcoholic cirrhosis of liver without ascites Status: Acute Assessment and Plan: with chronic elevated liver enzymes will 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 [place], liver ultrasound every 6 months for hcc surveillance, etoh cessation, etc Subjective Date/time seen: 03/12/21 09:00 Interval history: no more bleeding and she is going home Review of Systems Review of Systems: All systems reviewed & are unremarkable except as noted in HPI and below Exam Const: General: comfortable and no acute distress Other: bruise of left forehead and eyelid- healing HENMT: General nose exam: Normal nares present Eyes: Sclera: sclerae normal Neck: Neck: supple Resp: Auscultation: clear to auscultation bilaterally Cardio: Rate: regular rate GI: GI Palp: Yes Soft to palpation, No Tenderness to palpation present (GI) and No Guarding due to palpation present (GI) Auscultation: normal bowel sounds Skin: Other: pale Neuro: Speech: normal speech Motor exam (neuro): Normal motor muscle tone present throughout Extrem: General: normal to inspection Psych: Mental Status: mental status grossly normal Objective Data Vital Signs Vital Signs: Vital Signs - 24 hr 03/11/21 11:43 03/11/21 12:00 03/11/21 14:00 Temperature 98.0 F Pulse Rate 90 104 H 88 Respiratory Rate 16 Blood Pressure 120/68 Pulse Oximetry 98 03/11/21 16:00 03/11/21 16:48 03/11/21 18:00 Temperature 96.5 F L Pulse Rate 84 94 86 Respiratory Rate 16 Blood Pressure 119/62 Pulse Oximetry 100 03/11/21 20:00 03/11/21 22:00 03/11/21 23:27 Temperature 97.6 F 97.7 F Pulse Rate 86 90 120 H Respiratory Rate 18 18 Blood Pressure 116/55 L 120/66 Pulse Oximetry 100 99 03/12/21 00:00 03/12/21 02:00 03/12/21 04:00 Temperature Pulse Rate 89 87 85 Respiratory Rate Blood Pressure Pulse Oximetry 03/12/21 05:15 03/12/21 06:00 03/12/21 08:00 Temperature 98 F 97.7 F Pulse Rate 100 82 88 Respiratory Rate 17 16 Blood Pressure 117/68 116/56 L Pulse Oximetry 100 100 Intake/Output Intake/Output: Intake & Output 03/09/21 03/10/21 03/11/21 03/12/21 23:59 23:59 23:59 23:59 Intake Total 1700 4156 1933 575 Output Total 175 4000 925 425 Balance 6305 972 5734 150 Meds/Results Radiology Res
== END 2021-03-12 09:55 | disposition home or self-care (01) | DRG 513 ==
LOC: ANHED 17:09 → ANHOB2 19:13 → ANHIMU 03-10 07:25 → ANHOB2 05-16 06:17 → ANHIMU 05-16 06:17
PROVIDERS: Internal Medicine; Internal Medicine Gastroenterology; Physician Assistant; Admitting Provider Obstetrics & Gynecology Gynecology; Emergency Provider Emergency Medicine; PCP Nurse Practitioner Family; Visit Provider Physician Assistant
PROC: 0U5B8ZZ Destruction of Endometrium, Via Natural or Artificial Opening Endoscopic (ICD-10-PCS; CPT 58563; principal; 2021-03-09 14:30)
PROC: 0DJ08ZZ Inspection of Upper Intestinal Tract, Via Natural or Artificial Opening Endoscopic (ICD-10-PCS; CPT 43235; principal; 2021-03-10 13:30)
DX: N93.9 Abnormal uterine and vaginal bleeding, unspecified (principal); D62 Acute posthemorrhagic anemia; R55 Syncope and collapse; R73.03 Prediabetes; K21.00 Gastro-esophageal reflux disease with esophagitis, without bleeding; K21.9 Gastro-esophageal reflux disease without esophagitis; K85.90 Acute pancreatitis without necrosis or infection, unspecified; K92.0 Hematemesis; K92.2 Gastrointestinal hemorrhage, unspecified; E03.9 Hypothyroidism, unspecified; D64.9 Anemia, unspecified; K70.30 Alcoholic cirrhosis of liver without ascites; R74.01 Elevation of levels of liver transaminase levels; D41.9 Neoplasm of uncertain behavior of unspecified urinary organ
CPT/HCPCS: 36415; 36430; 36569; 70450; 76830; 76856; 80048; 80053; 80076; 82040; 82310; 82803; 83735; 84100; 84295; 85014; 85018; 85025; 85027; 85055; 85384; 85610; 85730; 86850; 86900; 86901; 86920; 88305; 88342; 96361; 96365; 96374; 96375; 96376; 99199; 99285; A9270; C1751; C9113; G0378; G0379; J0330; J0610; J2270; J2354; J2405; J2704; J3010; J3430; J3475; J7030; J7050; J7120; P9012; P9016

== ENCOUNTER 2021-03-21 11:23 | Outpatient (CLI) | payer OTHER, SELFPAY ==
[2021-03-21 11:43] LABS: Basophils Absolute Auto 0.04 K/mm3 (0.00-0.10); Basophils Percent Auto 0.7 % (0.0-1.0); Eosinophils Absolute Auto 0.03 K/mm3 (0.02-0.50); Eosinophils Percent Auto 0.6 % (1.0-6.0); Hematocrit 23.4 % (35.0-49.0); Hemoglobin 7.1 g/dL (12.0-15.0); Immature Granulocyte Absolute 0.04 K/mm3 (0.00-0.00); Immature Granulocyte Percent A 0.7 % (0.0-0.0); Immature Reticulocyte Fraction 16.3 % (2.0-16.52); Lymphocytes Absolute Auto 0.78 K/mm3 (1.10-4.50); Lymphocytes Percent Auto 14.5 % (18.0-42.0); Mean Corpuscular HGB Conc 30.3 g/dL (32.0-36.0); Mean Corpuscular Hemoglobin 27.1 pg (27.0-31.0); Mean Corpuscular Volume 89.3 fL (78.0-102.0); Mean Platelet Volume 10.1 fl (9.2-11.8); Monocytes Absolute Auto 0.48 K/mm3 (0.10-0.90); Monocytes Percent Auto 8.9 % (2.0-11.0); Neutrophils Percent Auto 74.6 % (50.0-70.0); Platelet Count Result 118 K/mm3 (150-420); Red Blood Count 2.62 M/mm3 (4.20-5.40); Red Cell Distribution Width 16.1 % (11.6-14.4); Reticulocyte Hemoglobin Conten 21.4 pg (28.0-35.0); Reticulocyte Percent 5.15 % (0.50-1.50); Reticulocytes Absolute 0.13 M/mm3 (0.02-0.1); White Blood Count 5.4 K/mm3 (4.8-10.8)
[2021-03-21 16:39] LABS: Alanine Aminotransferase 40 U/L (14-59); Albumin Level 2.5 g/dL (3.4-5.0); Alkaline Phosphatase 173 U/L (46-116); Anion Gap 11 mmol/L (8-16); Aspartate Amino Transferase 46 U/L (15-37); Bilirubin,Total 0.7 mg/dL (0.00-1.00); Blood Urea Nitrogen 11 mg/dL (7-18); Carbon Dioxide 22 mmol/L (21-32); Chloride 104 mmol/L (98-108); Estimated Glomerular Filt Rate > 60; Ferritin 14 ng/mL (8-252); Glucose 105 mg/dL (70-99); Iron 405 ug/dL (50-170); Magnesium 2.1 mg/dL (1.8-2.4); Osmolality Calculated 283 mOsm/kg (285-295); Potassium 4.2 mmol/L (3.5-5.1); Sodium 137 mmol/L (136-145); Total Protein 5.5 g/dL (6.4-8.2); Vitamin B12 539 pg/mL (193-986)
[2021-03-23 14:54] LABS: Red Blood Cell Folate >1000 ng/mL RBC (>280)
== END 2021-03-21 11:24 | disposition home or self-care (01) ==
LOC: CHSLAB 11:25
PROVIDERS: PCP Nurse Practitioner Family; Visit Provider Nurse Practitioner Family
DX: D64.9 Anemia, unspecified (principal); E87.6 Hypokalemia; K70.10 Alcoholic hepatitis without ascites
CPT/HCPCS: 36415; 80053; 82607; 82728; 82747; 83540; 83735; 85025; 85046

== ENCOUNTER 2021-06-28 11:00 | Outpatient (CLI) | payer OTHER, SELFPAY ==
[2021-06-28 11:11] LABS: Basophils Absolute Auto 0.08 K/mm3 (0.00-0.10); Basophils Percent Auto 1.2 % (0.0-1.0); Eosinophils Absolute Auto 0.07 K/mm3 (0.02-0.50); Hematocrit 37.3 % (35.0-49.0); Immature Granulocyte Absolute 0.07 K/mm3 (0.00-0.00); Lymphocytes Absolute Auto 1.43 K/mm3 (1.10-4.50); Lymphocytes Percent Auto 20.6 % (18.0-42.0); Mean Corpuscular HGB Conc 29.5 g/dL (32.0-36.0); Mean Corpuscular Hemoglobin 26.9 pg (27.0-31.0); Mean Corpuscular Volume 91.2 fL (78.0-102.0); Mean Platelet Volume 9.7 fl (9.2-11.8); Monocytes Absolute Auto 0.68 K/mm3 (0.10-0.90); Monocytes Percent Auto 9.8 % (2.0-11.0); Neutrophils Absolute Auto 4.6 K/mm3 (1.7-7.2); Neutrophils Percent Auto 66.4 % (50.0-70.0); Platelet Count Result 277 K/mm3 (150-420); Red Blood Count 4.09 M/mm3 (4.20-5.40); Red Cell Distribution Width 19.9 % (11.6-14.4); White Blood Count 6.9 K/mm3 (4.8-10.8)
[2021-06-28 11:49] LABS: Alanine Aminotransferase 160 U/L (14-59); Albumin Level 3.7 g/dL (3.4-5.0); Alkaline Phosphatase 243 U/L (46-116); Anion Gap 7 mmol/L (8-16); Aspartate Amino Transferase 150 U/L (15-37); Bilirubin,Total 1.2 mg/dL (0.00-1.00); Blood Urea Nitrogen 14 mg/dL (7-18); Calcium 9.1 mg/dL (8.5-10.1); Carbon Dioxide 28 mmol/L (21-32); Chloride 103 mmol/L (98-108); Estimated Glomerular Filt Rate > 60; Glucose 86 mg/dL (70-99); Osmolality Calculated 285 mOsm/kg (285-295); Potassium 3.9 mmol/L (3.5-5.1); Sodium 138 mmol/L (136-145); Total Protein 7.3 g/dL (6.4-8.2)
== END 2021-06-28 11:01 | disposition home or self-care (01) ==
LOC: CHSLAB 11:02
PROVIDERS: PCP Nurse Practitioner Family; Visit Provider Nurse Practitioner Family
DX: Z00.00 Encounter for general adult medical examination without abnormal findings (principal); D62 Acute posthemorrhagic anemia; K76.7 Hepatorenal syndrome
CPT/HCPCS: 36415; 80053; 85025

== ENCOUNTER 2021-07-30 10:13 | Inpatient (IN) | payer OTHER, SELFPAY ==
[2021-07-30] VITALS (18 sets, daily range): BP systolic 74–160; BP diastolic 57–96; PULSE 100–194; RESP 15–32; TEMP 36.6–37.6; O2SAT 96–100; BMI 26.2
--- NOTE | ~2021-07-30 | XR_ITS ---
XR chest 1V portable DATE: 07/30/2021 10:29 INDICATION: Difficulty breathing. Cough. Vomiting. TECHNIQUE: Portable upright AP chest on 07/30/2021 at 1027 hours COMPARISON: 03/10/2018 AP and lateral chest FINDINGS: Normal heart size. No hilar or mediastinal enlargement. No pulmonary infiltrate or consolid ation, pleural effusion or pulmonary vascular congestion or pneumothorax. IMPRESSION: No active cardiopulmonary disease Reviewed, dictated and finalized at location A.
--- NOTE | ~2021-07-30 | CT_ITS ---
EXAMINATION: CT abdomen pelvis wo con DATE: 07/30/2021 19:24 INDICATION: Abdominal pain, nausea, vomiting and cirrhosis TECHNIQUE: Computed tomography (CT) of the abdomen and pelvis was performed without intravenous contr ast. The dose-length product was 515.66 mGy-cm. Automated exposure control and iterative reconstructi on technique were employed. COMPARISON: CT dated 03/10/2018. FINDINGS: Lung bases are unremarkable. No significant pleural or pericardial effusion. Moderate size hiatal hernia. Heart size is normal. There is periaortic lymphadenopathy, likely reactive. There is h epatomegaly with fatty infiltration of the liver. There is nodular liver surface, compatible with cir rhosis. There is splenomegaly. Gallbladder is present. No free air or free fluid. Nonobstructive arjun l gas pattern. There is an umbilical piercing. Normal appendix. No evidence for diverticulitis. There is levoscoliosis. IMPRESSION: 1. Hepatosplenomegaly with cirrhosis and diffuse fatty infiltration. 2: Moderate size hiatal hernia. Reviewed, dictated and finalized at location A.
--- NOTE | ~2021-07-30 | MR_ITS ---
EXAMINATION: MR brain/brain stem wo con DATE: 08/01/2021 07:58 INDICATION: Altered mental status. TECHNIQUE: Magnetic resonance imaging (MRI) of the brain and brainstem was performed without intraven ous contrast. COMPARISON: Head CT 03/07/2021 FINDINGS: There is increased T1-weighted signal intensity in the globi pallidi, consistent with hepat ic encephalopathy. There is no intracranial hemorrhage, acute infarction, or abnormal intracranial ma ss lesion. The ventricles are normal in size. There is mucosal thickening in the paranasal sinuses. T he orbits are normal. The mastoid air cells are normal. IMPRESSION: 1. Hepatic encephalopathy. Reviewed, dictated and finalized at location A. IMPRESSION: 1. Hepatic encephalopathy.
--- NOTE | 2021-07-30 10:20 | ED.GIBLEED ---
HPI - GI Bleed General Chief complaint: GI Bleed Stated complaint: vomiting blood Time Seen by Provider: 07/30/21 10:15 History of Present Illness HPI Narrative: 41-year-old female who states that since yesterday she has been having a cough, nausea and vomiting, she did throw up a moderate amount of bloody/coffee-ground emesis, she had another episode this morning and endorsing some shortness of breath so came in today denies any diarrhea, has not noticed any blood in her stool. Also endorsing diffuse abdominal discomfort. States she has history of ulcers and cirrhosis upper GI bleed. She did try taking some Zofran at home but this did not help. Related Data Allergies Allergy/AdvReac Type Severity Reaction Status Date / Time Penicillins Allergy Intermediate rash Verified 07/30/21 10:22 Review of Systems Review of Systems: CONST: No fever. HEENT: No sore throat C/V: Chest discomfort RESP: Cough and shortness of breath GI: Reports abdominal pain, nausea, vomiting : No dysuria. M/S: No joint pain. SKIN: No rash. NEURO: [No headache or focal numbness or weakness] PSYCH: [No depression] [facility] Past Medical History Medical History Alcoholic cirrhosis of liver Alcoholic hepatitis with ascites Followed by the hepatology team at [facility]. Anxiety Borderline diabetes Clostridium difficile infection (03/2008) Gastric ulcer (10/09/20) Gastroesophageal reflux Hepatitis C Questionable history of such. History of GI bleed March 2018 and October 2020. Hypothyroidism (normal spontaneous vaginal delivery) x3 Pancreatitis Paroxysmal atrial tachycardia Surgical History Surgical History History of dilation and curettage (03/09/21) History of endometrial ablation (03/09/21) Per Dr. Linares. History of laparoscopy For endometriosis. History of tubal ligation Family History Family History Mother Chronic obstructive pulmonary disease Congestive heart failure Social History Social History Social History: Patient lives with her fiance and children in [place]. 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 She does not smoke. She has a history of alcohol abuse but has cut back heavily and now only drinks couple of alcoholic beverages perhaps once a month. no illicit substance use. She designates her fiance, John Emmanuel, as her surrogate decision maker. Code status: Full code. Smoking status: Never smoker Alcohol intake: former Substance use: current Substance use type: marijuana Spiritual care concerns: No Exam Narrative: EXAMINATION OF ORGAN SYSTEMS/BODY AREAS: Constitutional: Vital signs per nursing GENERAL: Appears quite uncomfortable, retching HEAD: Normal with no signs of head trauma. EYES: EOMI, conjunctiva normal ENT: Hearing grossly intact LUNGS: Tachypneic HEART: Tachycardic ABD: [Soft], no focal tenderness EXT: Normal range of motion SKIN: [No rashes or lesions.] NEURO: [Alert and oriented x 3. No gross focal sensory or strength deficits.] PSYCH: Normal affect Course Vital Signs Vital signs: Vital Signs Temperature 98.2 F 07/30/21 10:16 Pulse Rate 139 H 07/30/21 10:16 Respiratory Rate 24 H 07/30/21 10:16 Blood Pressure 160/95 H 07/30/21 10:16 Pulse Oximetry 97 07/30/21 10:16 Oxygen Delivery Room Air 07/30/21 10:16 Temperature 98.2 F 07/30/21 10:16 Pulse Rate 139 H 07/30/21 10:16 Respiratory Rate 24 H 07/30/21 10:16 Blood Pressure 160/95 H 07/30/21 10:16 Pulse Oximetry 97 07/30/21 10:16 Oxygen Delivery Room Air 07/30/21 10:16 MDM - GI Bleed MDM Narrative Medical decision making narrative: 41-year-old female presenting with hematemesis, difficulty breathing, vital signs notable for tachypnea and tachycardia, on exam she is
[2021-07-30] MEDS: PANTOPRAZOLE SODIUM IV 40 MG VIAL 80 MG IV PUSH (10:37)
[2021-07-30] MEDS: SODIUM CHLORIDE 0.9% IV 1,000 ML 999 ML IV CONT ×2 (10:37→15:53)
[2021-07-30] MEDS: ONDANSETRON INJ 4 MG/2 ML VIAL IV PUSH ×2 (10:37→20:33)
[2021-07-30 10:45] LABS: Basophils Percent Auto 0.3 % (0.2-1.2); Hematocrit 38.5 % (37.0-47.0); Hemoglobin 12.1 g/dL (12.0-15.0); Immature Granulocyte Absolute 0.07 K/mm3 (0.00-0.031); Immature Granulocyte Percent A 0.7 % (0-0.5); Immature Platelet Fraction Pct 5.7 % (0.9-11.2); Lymphocytes Absolute Auto 0.59 K/mm3 (0.9-3.2); Mean Corpuscular HGB Conc 31.4 g/dl (32-36); Mean Corpuscular Hemoglobin 29.2 pg (26-34); Mean Corpuscular Volume 92.8 fl (80-100); Mean Platelet Volume 10.6 fl (7.4-10.4); Monocytes Absolute Auto 1.4 K/mm3 (0.1-0.6); Monocytes Percent Auto 14.3 % (2.6-8.5); Neutrophils Absolute Auto 7.8 K/mm3 (1.3-6.7); Neutrophils Percent Auto 78.7 % (45.5-73.1); Platelet Count Result 71 k/mm3 (150-375); Red Blood Count 4.15 M/mm3 (4.2-5.4); Red Cell Distribution Width 17.1 % (11.5-14.5); White Blood Count 9.9 K/mm3 (4.5-10.0)
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
[2021-07-30 10:53] LABS: Alanine Aminotransferase 56 U/L (6-35); Albumin Level 5.4 g/dL (3.5-5.1); Alkaline Phosphatase 244 U/L (38-126); Aspartate Amino Transferase 172 U/L (14-36); Bilirubin,Total 4.3 mg/dL (0.2-1.3); Blood Urea Nitrogen 10 mg/dL (7-17); Calcium 8.7 mg/dL (8.4-10.2); Carbon Dioxide < 5 mmol/L (22-30); Chloride 97 mmol/L (98-107); Estimated CRCL calculation 48 ml/min; Estimated Glomerular Filt Rate 50; Glucose 190 mg/dL (65-110); Magnesium 1.8 mg/dL (1.6-2.3); Potassium 2.9 mmol/L (3.4-5.0); Sodium 139 mmol/L (137-145)
[2021-07-30 10:55] LABS: INR 1.3; Prothrombin Time 15.9 Seconds (11.1-14.7)
[2021-07-30 10:56] LABS: Partial Thromboplastin Time 31.2 SECONDS (22.3-36.8)
[2021-07-30 11:31] LABS: Lipase 109 U/L (23-300)
[2021-07-30] MEDS: diphenhydrAMINE HCl INJ 50 MG/ML VIAL 25 MG IV PUSH (11:51)
[2021-07-30] MEDS: KCL 40 MEQ/0.45% NS 1,000 ML 100 ML IV CONT (11:51)
[2021-07-30] MEDS: LACTATED RINGERS 1,000 ML 999 ML IV CONT (11:51)
[2021-07-30] MEDS: METOCLOPRAMIDE HCL INJ 10 MG/2 ML VIAL IV PUSH (11:51)
[2021-07-30 12:46] LABS: Base Excess ABG -21.5 mEq/l (+/-2.0); Fractional Inspired Oxygen 21 %; Oxygen Content ABG 16.2 %vol (16.0-22.0); Oxygen Saturation ABG 98.7 % (95.0-100.0); Oxyhemoglobin 97.5 % THb (90.0-100.0); PO2 ABG 161.6 mmHg (80.0-100.0); Total Hemoglobin 11.6 g/dL (12.0-18.0)
[2021-07-30 12:47] LABS: Ammonia 198 umol/L (9-30); Ethanol < 10 mg/dL (<10)
[2021-07-30 12:48] LABS: PCO2 ABG 10.5 mmHg (35.0-45.0); pH ABG 7.199 (7.350-7.450)
[2021-07-30 12:51] LABS: Device ROOM AIR; Modified Allen's Test Pass; Site Drawn RIGHT RADIAL
[2021-07-30] MEDS: MORPHINE SULFATE (*CRX) 4 MG/ML INJ IV PUSH (13:17)
--- NOTE | 2021-07-30 13:39 | PC.NURSE ---
Patient care report called to [facility] in IMU. All questions answered at this time.
--- NOTE | 2021-07-30 14:00 | ADMGEN ---
This patient, Janene Russell, was admitted to IMU Room 214-01. Patient/family oriented to hospital policies and general routines including ID bracelet, bed and alarms, visiting hours, pain management, procedures, bathroom and other care routines, personal items, smoking policy, room service/diet, and visiting hours. Information on how to activate the Rapid Response Team has been discussed. Patient/Family are encouraged to report perceived risks to care and to ask questions if they do not understand what they are told or what they should do.
[2021-07-30] MEDS: SODIUM BICARBONATE 8.4% 50 MEQ/50 ML SYRINGE IV PUSH (14:17)
--- NOTE | 2021-07-30 14:56 | PM.IMHP ---
H&P: HPI History of Present Illness Date/Time: Patient requires inpatient monitoring with expected length of stay to exceed 2 midnights for management of care. 07/30/21 14:56 Chief Complaint: Nausea and vomiting Narrative: Ms. Russell is a 41-year-old female who presented to the emergency room with complaints of nausea vomiting that started one and half days ago. Patient states that she noticed that the vomitus was black. Patient denies any bright red blood or blood clots in her vomitus. Patient states she has not been able to eat or drink over the last 36 hours. Patient states she is recovering alcoholic and has not had any alcohol for last 2-3 years. Patient states she does follow at [facility] with hepatology. Patient states that over the last 1 and half days she has just generally not felt well. Patient does have a large amount of bruising, but she states this is a normal occurrence for her. Patient states she has had difficulty keeping balance, but she has not fallen. 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 Patient states she is feeling very confused at this time and is unable to give a full history because she cannot recall all events are occurring. Patient states she has not been able to take her medications for the last day and a half. Patient states that she feels very shaky and confused today. Patient has a known history of peptic ulcer disease with hemorrhage and has seen gastroenterology for this in the past. Patient also has a known history of alcoholic cirrhosis of the liver for which she follows at [facility] hepatology. Patient states she has had to have a paracentesis performed in the past. Patient states she also has a known history of hypothyroidism, pancreatitis, and paroxysmal atrial tachycardia. Review of Systems Review of Systems: Is very difficult to obtain a full review of systems from patient secondary to patient's confusion. [facility] Past Medical History Medical History Alcoholic cirrhosis of liver Alcoholic hepatitis with ascites Followed by the hepatology team at [facility]. Anxiety Borderline diabetes Clostridium difficile infection (03/2008) Gastric ulcer (10/09/20) Gastroesophageal reflux Hepatitis C Questionable history of such. History of GI bleed March 2018 and October 2020. Hypothyroidism (normal spontaneous vaginal delivery) x3 Pancreatitis Paroxysmal atrial tachycardia Surgical History Surgical History History of dilation and curettage (03/09/21) History of endometrial ablation (03/09/21) Per Dr. Linares. History of laparoscopy For endometriosis. History of tubal ligation Family History Family History (Updated 07/30/21 @ 14:23 by Cally Jorgensen RN) Mother Congestive heart failure Chronic obstructive pulmonary disease Sibling Schizo-affective psychosis Grandparent Asthma Social History Social History Social History: Patient lives with her fiance and children in [place]. 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 She does not smoke. She has a history of alcohol abuse but has cut back heavily and now only drinks couple of alcoholic beverages perhaps once a month. no illicit substance use. She designates her fiance, John Emmanuel, as her surrogate decision maker. Code status: Full code. Smoking status: Former smoker Tobacco type: cigars Alcohol intake: former Substance use: current Substance use type: marijuana Spiritual care concerns: No Meds Home Medications and Allergies Home Medications Medication Instructions Recorded Confirmed Type ferrous sulfate 325 mg (65 mg 325 mg PO DAILY #30 tabs 03/21/21 07/30/21 Rx iron) tablet ondansetron 4 mg disintegrating 4 mg PO Q8H PRN nausea and 03/21/21
[2021-07-30 14:58] LABS: Hematocrit 31.1 % (37.0-47.0)
[2021-07-30 15:08] LABS: Magnesium 1.3 mg/dL (1.6-2.3)
[2021-07-30] MEDS: THIAMINE HCL INJ 500 MG in SODIUM CHLORIDE 0.9% IV 100 ML 200 MG IV CONT ×2 (15:10→22:59)
[2021-07-30 15:11] LABS: Lactic Acid Reflex 4.1 mmol/L (0.7-2.0)
[2021-07-30 15:20] LABS: Phosphorus 2.6 mg/dL (2.5-4.5)
[2021-07-30] MEDS: MORPHINE SULFATE (*CRX) 2 MG/ML INJ IV PUSH ×2 (15:56→20:34)
[2021-07-30] MEDS: PROMETHAZINE HCL 25 MG/ML AMPUL 12.5 MG IV PUSH (15:56)
[2021-07-30] MEDS: LACTULOSE 20 GM/30 ML UDC 30 GM PO (15:57)
[2021-07-30] MEDS: DEXTROSE 5%/0.9% SOD CHL 1,000 ML 150 ML IV CONT (15:57)
--- NOTE | 2021-07-30 16:23 | WPDGICN ---
GI Consult Note Consult date/time: 07/30/21 16:23 Reason for consult: GI bleeding. HPI: Janene Russell is a 41 year old female Was seen in consultation at request of the hospitalist. The patient was examined and the chart was reviewed. Impression: Nausea vomiting coffee-ground emesis. This may be secondary to underlying erosive esophagitis, gastric ulcer disease and GERD. This has been well documented previously. No evidence of active hemorrhaging at this time. PPI q.12 hours. Follow hemoglobin hematocrit. May consider EGD in the near future. The patient develops any acute bleeding, would proceed at that time. Anemia secondary to acute blood loss. Alcoholism may be contributing to her symptoms. Increased anion gap metabolic acidosis. This is most likely secondary to CUATE, starvation, alcoholism. With elevated lactate occult infection/ sepsis should be considered. IV fluids. Correct electrolytes. Blood And urine cultures. Will place on antibiotics. Follow labs. Alcoholic cirrhosis with evidence of increased LFTs compatible with alcoholic hepatitis. Acute on chronic liver failure. Complicating factors: Ascites. Hepatic encephalopathy.With elevated ammonia level . Patient on lactulose. Xifaxan. Follow mental status. Will recheck an ammonia level for confirmation of significant elevation. Thiamine, folic acid multiple vitamin. Will check CT of the abdomen. History of C diff infection. Observe. History of pancreatitis. Observe. History of alcohol abuse. , however patient adamant that she is not drinking any longer. She has not drink for 2 years with only 1 relapse. Continue alcohol abstention. OBSERVE FOR DTS. CIWA. PMH: Anxiety, P 80, gestational diabetes, hypothyroidism, marijuana use. History: This very pleasant lady presented to the ED with complaints of nausea, vomiting and coffee-ground emesis. Patient has extensive history of as mentioned above. She denies any melena, hematochezia, acholic stools or diarrhea. She has not had a bowel movement for 3 or 4 days. The patient has bed unable to tolerate anything for the last 3 days. She denies any fever or chills. She has complaints of abdominal pain from all her vomiting. She reports frequent indigestion or heartburn. This is despite taken a PPI at home. NSAID use is denied. The patient has an extensive history of alcohol abuse up to a pt a day. She states she has been sober for 2 years, however she did suffer 1 relapse in the/ 2 years. She denies any dysphagia, odynophagia or fresh hematemesis. She denies any clots in the emesis. She has previously had an EGD revealing erosive esophagitis, reflux esophagitis and gastric ulcer disease. Patient denies any fever, chills or night sweats. She reports significant anxiety with her heart racing at times. She denies any bruising, seizures, headaches, shortness of breath, dyspnea, cough or sputum production. General: very pleasant patient in no acute distress. HEENT: Head was normocephalic sclerae is clear mouth without masses neck was supple. Heart: Rate rhythm regular without S3 or S4.Slight tachycardia. Lungs: CTA. Abdomen: Soft with no guarding or rigidity. Bowel sounds were active. Mild tenderness to palpation mid abdomen. Neurologic: Cranial nerves 2 through 12 intact. No focal defects. No clonus. No Kernig's, nuchal rigidity or asterixis. Musculoskeletal system: Revealed no joint tenderness or swelling no muscle atrophy. Extremities: Reveal no significant edema. Skin: Warm and dry with normal turgor. Mental status: intact. Patient is alert and oriented. Very anxious. She is very forthcoming with information. [facility] Past Medical History Medical History (Updated 07/30/21 @ 16:20 by Jean Carlos Hanna DO) Alcoholic cirrhosis of liver Alcoholic hepatitis with ascites Followed by the hepatology team at [facility]
[2021-07-30 16:30] LABS: Fractional Inspired Oxygen 21 %; HCO3 VBG 8.4 mEq/l (24.0-30.0); PO2 VBG 114.3 mmHg (35.0-45.0); pH VBG 7.354 (7.300-7.400)
[2021-07-30 16:33] LABS: Ammonia 108 umol/L (9-30)
[2021-07-30 16:35] LABS: PCO2 VBG 15.5 mmHg (42.0-48.0)
[2021-07-30] MEDS: levoFLOXacin 500 MG/D5W 100 ML 500 MG/100 ML BAG 100 MG IVPB (17:16)
[2021-07-30 17:47] LABS: Cholesterol 280 mg/dL (0-200); HDL Direct 42 mg/dL; Lactate Dehydrogenase 561 U/L (313-618); Triglycerides 361 mg/dL (<150)
[2021-07-30 17:55] LABS: Reflex Lactic Acid Yes or No Add Lactic
[2021-07-30 17:58] LABS: LDL Cholesterol Direct 159 mg/dL
[2021-07-30 18:05] LABS: Appearance Urine Clear (Clear); Bilirubin Urine 2+ (Negative); Blood Urine 2+ (Negative); Color Urine Yellow (Yellow); Glucose Urine UA Negative (Negative); Ketones Urine 4+ mg/dL (Negative); Leukocyte Esterase Ur Negative LEU/UL (Negative); Nitrate Urine Negative (Negative); Protein Urine 1+ mg/dL (Negative)
[2021-07-30] MEDS: POTASSIUM CHLORIDE INJ 40 MEQ in SODIUM CHLORIDE 0.9% IV 500 ML 130 MEQ IVPB (18:13)
[2021-07-30 18:14] LABS: Mucus Urine Rare /lpf; RBC Urine 0-2 /hpf (0-2); Squamous Epithelial Cell Urine Rare /hpf (Few); WBC Urine 0-3 /hpf
[2021-07-30 18:17] LABS: Add Urine Microscopic? YES
[2021-07-30 18:48] LABS: Hematocrit 29.1 % (37.0-47.0); Hemoglobin 9.2 g/dL (12.0-15.0); Hemoglobin 9.4 g/dL (12.0-15.0); Mean Corpuscular HGB Conc 32.3 g/dl (32-36); Mean Corpuscular Hemoglobin 29.4 pg (26-34); Mean Corpuscular Volume 90.9 fl (80-100); Platelet Count Result 27 k/mm3 (150-375); Red Cell Distribution Width 16.9 % (11.5-14.5)
[2021-07-30 18:50] LABS: Lactic Acid 1.5 mmol/L (0.7-2.0)
[2021-07-30 18:53] LABS: INR 1.4; Prothrombin Time 16.2 Seconds (11.1-14.7)
[2021-07-30 19:11] LABS: Folic Acid 7.4 ng/mL (2.76->20)
[2021-07-30 19:16] LABS: Free T4 Free Thyroxine 0.73 ng/mL (0.78-2.19)
[2021-07-30] MEDS: LORazepam INJ (*CRX) 2 MG/ML VIAL IV PUSH (20:33)
[2021-07-30] MEDS: PANTOPRAZOLE SODIUM IV 40 MG VIAL IV PUSH (20:33)
[2021-07-30 21:52] LABS: Fractional Inspired Oxygen 21 %; HCO3 VBG 14.2 mEq/l (24.0-30.0); PO2 VBG 170.6 mmHg (35.0-45.0)
[2021-07-30 21:55] LABS: Device ROOM AIR; PCO2 VBG 19.6 mmHg (42.0-48.0); pH VBG 7.477 (7.300-7.400)
[2021-07-31] VITALS (15 sets, daily range): BP systolic 102–134; BP diastolic 62–81; PULSE 86–123; RESP 18–20; TEMP 36.6–37.2; O2SAT 96–100
[2021-07-31] MEDS: ONDANSETRON INJ 4 MG/2 ML VIAL IV PUSH ×3 (02:18→17:34)
[2021-07-31] MEDS: MORPHINE SULFATE (*CRX) 2 MG/ML INJ IV PUSH ×4 (02:18→17:34)
[2021-07-31 04:37] LABS: Hematocrit 30.9 % (37.0-47.0); Hemoglobin 9.9 g/dL (12.0-15.0); Immature Granulocyte Absolute 0.02 K/mm3 (0.00-0.031); Immature Granulocyte Percent A 0.5 % (0-0.5); Immature Platelet Fraction Pct 6.1 % (0.9-11.2); Lymphocytes Absolute Auto 0.56 K/mm3 (0.9-3.2); Lymphocytes Percent Auto 13.8 % (18.3-44.2); Mean Corpuscular Hemoglobin 29.6 pg (26-34); Mean Corpuscular Volume 92.5 fl (80-100); Mean Platelet Volume 12.6 fl (7.4-10.4); Monocytes Absolute Auto 0.5 K/mm3 (0.1-0.6); Monocytes Percent Auto 11.8 % (2.6-8.5); Neutrophils Percent Auto 73.9 % (45.5-73.1); Platelet Count Result 33 k/mm3 (150-375); Red Blood Count 3.34 M/mm3 (4.2-5.4); Red Cell Distribution Width 17.4 % (11.5-14.5); White Blood Count 4.1 K/mm3 (4.5-10.0)
[2021-07-31 04:45] LABS: Magnesium 1.4 mg/dL (1.6-2.3)
[2021-07-31 05:12] LABS: Alanine Aminotransferase 46 U/L (6-35); Albumin Level 4.2 g/dL (3.5-5.1); Alkaline Phosphatase 157 U/L (38-126); Anion Gap 13 mmol/L (8-16); Aspartate Amino Transferase 151 U/L (14-36); Bilirubin,Total 3.8 mg/dL (0.2-1.3); Blood Urea Nitrogen 10 mg/dL (7-17); Calcium 7.9 mg/dL (8.4-10.2); Carbon Dioxide 18 mmol/L (22-30); Chloride 104 mmol/L (98-107); Estimated CRCL calculation 92 ml/min; Estimated Glomerular Filt Rate > 60; Glucose 154 mg/dL (65-110); Potassium 2.7 mmol/L (3.4-5.0); Sodium 135 mmol/L (137-145)
[2021-07-31 05:13] LABS: Phosphorus < 0.5 mg/dL (2.5-4.5)
[2021-07-31] MEDS: THIAMINE HCL INJ 500 MG in SODIUM CHLORIDE 0.9% IV 100 ML 200 MG IV CONT ×3 (05:41→21:00)
[2021-07-31] MEDS: DEXTROSE 5%/0.9% SOD CHL 1,000 ML 150 ML IV CONT ×2 (05:42→18:43)
[2021-07-31] MEDS: POTASSIUM CHLORIDE 20 MEQ TABLET 80 MEQ PO (05:43)
[2021-07-31] MEDS: MAGNESIUM SULF 4 GM/WATER100ML 4 GM/100 ML BAG IVPB (06:08)
[2021-07-31 08:05] LABS: Glucose Point of Care 137 mg/dl (65-105)
[2021-07-31] MEDS: POTASSIUM CHLORIDE INJ 40 MEQ in SODIUM CHLORIDE 0.9% IV 500 ML 130 MEQ IVPB (08:46)
[2021-07-31] MEDS: LACTULOSE 20 GM/30 ML UDC 30 GM PO (08:50)
[2021-07-31] MEDS: PANTOPRAZOLE SODIUM IV 40 MG VIAL IV PUSH ×2 (08:50→20:55)
[2021-07-31] MEDS: chlordiazePOXIDE (*CRX) 25 MG CAPSULE PO ×2 (08:57→20:55)
[2021-07-31 10:07] LABS: Hematocrit 29.9 % (37.0-47.0); Hemoglobin 9.9 g/dL (12.0-15.0)
[2021-07-31 10:17] LABS: Ammonia 17 umol/L (9-30)
--- NOTE | 2021-07-31 11:21 | WPDGIPROGNO ---
Subjective Date/time seen: 07/31/21 11:21 Patient is still somewhat anxious. Feeling better. Complaining of upper abdominal soreness. Reports nausea, but denies vomiting, hematemesis, hematochezia, melena or acholic stools. Having bowel movements at this time. Vital signs stable. Afebrile. Heart rate rhythm regular. Lungs CTA. Abdomen was soft with active bowel sounds. No guarding rigidity. Neurologic: Nonfocal. No significant asterixis appreciated. CT imaging: IMPRESSION: 1. Hepatosplenomegaly with cirrhosis and diffuse fatty infiltration. 2: Moderate size hiatal hernia. Impression/plan: [facility] to resume care in a.m.. Nausea, vomiting coffee-ground emesis.? This may be secondary to underlying erosive esophagitis, gastric ulcer disease and GERD.? This has been well documented previously.? No evidence of active hemorrhaging at this time. PPI q.12 hours.? Follow hemoglobin hematocrit.? May consider EGD in the near future.? The patient develops any acute bleeding, would proceed at that time. Observe platelets. If overt GI bleeding is noted, will require platelet transfusion. Anemia secondary to acute blood loss. ? Alcoholism may be contributing to her symptoms.? Increased? anion gap metabolic acidosis.? Improving. This is most likely secondary to CUATE, starvation, alcoholism.? With elevated lactate occult infection/ sepsis should be? considered. Continue IV fluids. Correct electrolytes.? Magnesium, potassium and phosphate. Blood ? And urine cultures pending Continue antibiotics. Follow labs. Alcoholic cirrhosis with evidence of increased LFTs compatible with alcoholic hepatitis. ? Acute on chronic liver failure. Complicating factors: Thrombocytopenia/pancytopenia secondary to hypersplenism. Ascites.? Hepatic encephalopathy.With elevated ammonia level . Now normal. Not really convinced she had cephalopathy at this time. Patient on lactulose.? Xifaxan. Thiamine, folic acid, and multiple vitamin. Follow platelet count. Please refer to above. ? History of C diff infection. Observe.? History of pancreatitis. Observe. History of alcohol abuse. , however patient? adamant that she is not drinking any longer.? She has not drink for 2 years with only 1 relapse. Continue alcohol abstention. OBSERVE FOR DTS.? CIWA. ? PMH: Anxiety, P 80, gestational diabetes, hypothyroidism, marijuana use. Objective Data Vital Signs Vital Signs: Vital Signs - 24 hr 07/30/21 11:31 07/30/21 11:46 07/30/21 12:02 Temperature Pulse Rate 131 H 127 H 131 H Pulse Rate [Bilateral Pedal (Dorsalis Pedis) Palpation] Respiratory Rate 25 H 24 H 15 Blood Pressure 147/57 H 139/72 74/63 L Pulse Oximetry Oxygen Delivery 07/30/21 12:16 07/30/21 13:00 07/30/21 13:31 Temperature Pulse Rate 129 H 123 H 128 H Pulse Rate [Bilateral Pedal (Dorsalis Pedis) Palpation] Respiratory Rate 17 25 H 19 Blood Pressure 86/76 L 144/81 H Pulse Oximetry 100 98 98 Oxygen Delivery 07/30/21 14:24 07/30/21 16:00 07/30/21 16:03 Temperature 37.3 C 37.6 C H Pulse Rate 130 H 126 H 123 H Pulse Rate [Bilateral Pedal (Dorsalis Pedis) Palpation] Respiratory Rate 22 H 18 Blood Pressure 131/72 153/66 H Pulse Oximetry 100 99 Oxygen Delivery 07/30/21 18:00 07/30/21 19:59 07/30/21 20:00 Temperature 37.6 C Pulse Rate 108 H 175 H 180 H Pulse Rate [Bilateral Pedal (Dorsalis Pedis) Palpation] Respiratory Rate 20 Blood Pressure 121/63 Pulse Oximetry 99 Oxygen Delivery 07/30/21 20:00 07/30/21 20:19 07/30/21 20:00 Temperature Pulse Rate 180 H Pulse Rate [Bilateral Pedal (Dorsalis Pedis) Palpation] 194 H 194 H Respiratory Rate 20 Blood Pressure 121/63 Pulse Oximetry 99 Oxygen Delivery Room Air 07/30/21 22:00 07/30/21 23:08 07/31/21 00:00 Temperature 36.6 C Pulse Rate 106 H 100 101 H Pulse Rate [Bilateral Pedal (Dorsalis Pedis) Palpat
[2021-07-31 12:53] LABS: Albumin Level 4.2 g/dL (3.5-5.1); Anion Gap 9 mmol/L (8-16); Blood Urea Nitrogen 7 mg/dL (7-17); Calcium 8.5 mg/dL (8.4-10.2); Carbon Dioxide 20 mmol/L (22-30); Chloride 109 mmol/L (98-107); Estimated CRCL calculation 92 ml/min; Estimated Glomerular Filt Rate > 60; Glucose 212 mg/dL (65-110); Potassium 3.3 mmol/L (3.4-5.0); Sodium 138 mmol/L (137-145)
[2021-07-31 12:56] LABS: Magnesium 2.6 mg/dL (1.6-2.3)
[2021-07-31 13:03] LABS: Phosphorus < 0.5 mg/dL (2.5-4.5)
[2021-07-31] MEDS: POTASSIUM PHOS,M-BASIC-D-BASIC 15 MMOL in SODIUM CHLORIDE 0.9% IV 250 ML 63.75 MMOL IVPB (14:59)
--- NOTE | 2021-07-31 15:11 | PM.IMPN ---
Progress Note: A&P Assessment and Plan (1) Ketoacidosis: Code(s): E87.2 - Acidosis Status: Acute Assessment and Plan: Patient appears to be in alcoholic ketoacidosis. It also appears the patient is having work he has encephalopathy. Patient is confused, she has nystagmus, and she has been ataxic. Patient has also not been able to eat. With all this being noted patient has not been taking her thiamine secondary to being nauseated and vomiting. Will place patient on high-dose thiamine of 500 mg IV t.i.d. for 2 days and then 250 mg IV daily for another 5 days. Patient will need to receive the Thiamine before we give her any dextrose to avoid further lactic acidosis. Will also give 1 amp of bicarb rinses patient's pH is so low at this time. Will have VBG redrawn at 4:00 a.m. to re-evaluate patient's acidosis. 07/31/2021 interval history Patient continue to complain nausea but no vomiting seen by GI suspect secondary to hepatosplenomegaly liver cirrhosis secondary to history of alcohol abuse in the past, patient states see has not had alcohol in last 2 years, there was a concern patient unsteady gait and falling, to further evaluate MRI of the brain is ordered will follow-up, also concern patient may have B12 deficient will recheck, patient patient has hypomagnesemia hyperkalemia and hypophoshoptamia, patient with lactic acidosis unlikely due to infection, most likely due to nausea and vomiting, patient is being hydrated and lactic acid is improved, will monitor and supplement, will have a PT OT evaluate the patient (2) Acute hypokalemia: Code(s): E87.6 - Hypokalemia Status: Acute Assessment and Plan: Patient was receiving normal saline with 40 mEq of potassium in a 1000 mL bag at 100 hour. At this point time will recheck potassium level and decide on further supplementation. Patient will most likely need a K rider. (3) Hematemesis: Code(s): K92.0 - Hematemesis Status: Acute Assessment and Plan: No hematemesis has been noted. GI has been consulted and would appreciate further recommendations. If patient were to have any further vomiting will have this Hemoccult. (4) Lactic acid acidosis: Code(s): E87.2 - Acidosis Status: Acute Assessment and Plan: Will give patient 1 L of IV fluids and a reflex lactic acid has been ordered. Attempt to avoid any further lactic acidosis by giving thiamine and then giving dextrose post thiamine. (5) Acute kidney injury: Code(s): N17.9 - Acute kidney failure, unspecified Status: Acute Assessment and Plan: most likely secondary to dehydration. Will hydrate patient and continue to monitor. (6) Increased ammonia level: Code(s): R79.89 - Other specified abnormal findings of blood chemistry Status: Acute Assessment and Plan: Patient has an elevated ammonia level most likely secondary to her decompensated liver cirrhosis. At this point time will place patient on lactulose and continue to monitor. Additional Plan Critical care time 90 minutes. Subjective Date/time seen: 07/31/21 15:11 HPI-Ms. Russell? is a 41-year-old female who presented to the emergency room with complaints of nausea vomiting that started one and half days ago.? Patient states that she noticed that the vomitus was black.? Patient denies any bright red blood or blood clots in her vomitus.? Patient states she has not been able to eat or drink over the last 36 hours.? Patient states she is recovering alcoholic and has not had any alcohol for last 2-3 years.? Patient states she does follow at [facility] with hepatology.? Patient states that over the last 1 and half days she has just generally not felt well.? Patient does have a large amount of bruising, but she states this is a normal occurrence for her.? Patient states she has had difficulty keeping balance, but she has not fallen.? Patient states she does work on a [email or web address]
[2021-07-31] MEDS: levoFLOXacin 500 MG/D5W 100 ML 500 MG/100 ML BAG 100 MG IVPB (17:38)
[2021-07-31] MEDS: LORazepam INJ (*CRX) 2 MG/ML VIAL 1 MG IV PUSH (20:56)
[2021-08-01] VITALS (14 sets, daily range): BP systolic 112–141; BP diastolic 69–98; PULSE 85–118; RESP 16–24; TEMP 36.3–37; O2SAT 97–100
[2021-08-01] MEDS: MORPHINE SULFATE (*CRX) 2 MG/ML INJ IV PUSH ×2 (02:32→08:44)
[2021-08-01] MEDS: ONDANSETRON INJ 4 MG/2 ML VIAL IV PUSH ×2 (02:32→12:14)
[2021-08-01] MEDS: DEXTROSE 5%/0.9% SOD CHL 1,000 ML 150 ML IV CONT (02:34)
[2021-08-01 05:01] LABS: Hematocrit 27.7 % (37.0-47.0); Immature Platelet Fraction Pct 6.6 % (0.9-11.2); Mean Corpuscular HGB Conc 32.5 g/dl (32-36); Mean Corpuscular Hemoglobin 28.9 pg (26-34); Mean Corpuscular Volume 89.1 fl (80-100); Platelet Count Result 31 k/mm3 (150-375); Red Blood Count 3.11 M/mm3 (4.2-5.4); Red Cell Distribution Width 17.6 % (11.5-14.5)
[2021-08-01 05:17] LABS: Alanine Aminotransferase 47 U/L (6-35); Albumin Level 3.3 g/dL (3.5-5.1); Alkaline Phosphatase 148 U/L (38-126); Anion Gap 7 mmol/L (8-16); Aspartate Amino Transferase 171 U/L (14-36); Bilirubin,Total 3.1 mg/dL (0.2-1.3); Blood Urea Nitrogen 3 mg/dL (7-17); Calcium 7.7 mg/dL (8.4-10.2); Carbon Dioxide 18 mmol/L (22-30); Chloride 112 mmol/L (98-107); Estimated CRCL calculation 109 ml/min; Estimated Glomerular Filt Rate > 60; Glucose 134 mg/dL (65-110); Potassium 2.8 mmol/L (3.4-5.0); Sodium 137 mmol/L (137-145)
[2021-08-01] MEDS: THIAMINE HCL INJ 500 MG in SODIUM CHLORIDE 0.9% IV 100 ML 200 MG IV CONT (05:17)
[2021-08-01] MEDS: POTASSIUM CHLORIDE 20 MEQ TABLET 80 MEQ PO (05:49)
[2021-08-01 06:16] LABS: Phosphorus < 0.5 mg/dL (2.5-4.5)
[2021-08-01] MEDS: POTASSIUM CHLORIDE 20 MEQ TABLET.ER 80 MEQ PO (08:32)
[2021-08-01] MEDS: POTASSIUM CHLORIDE INJ 40 MEQ in SODIUM CHLORIDE 0.9% IV 500 ML 130 MEQ IVPB (08:32)
[2021-08-01] MEDS: LACTULOSE 20 GM/30 ML UDC 30 GM PO ×3 (08:32→17:43)
[2021-08-01] MEDS: SODIUM PHOSPHATE 20 MM in DEXTROSE 5% IN WATER 250 ML 50 MM IVPB ×2 (08:32→16:37)
[2021-08-01] MEDS: PANTOPRAZOLE SODIUM IV 40 MG VIAL IV PUSH (08:32)
[2021-08-01] MEDS: chlordiazePOXIDE (*CRX) 25 MG CAPSULE PO (08:44)
--- NOTE | 2021-08-01 11:21 | WPDANESEPPF ---
Anes - Initial Pre Proc Eval Procedure: Operation Date: 08/01/21 13:00 Proposed Procedures p Esophagogastroduodenoscopy - Jean Carlos Chase MD Date/Time: 08/01/21 11:21 Surgeon: Olivier Lindquist MD Pre Op Diagnosis: UGIB Patient Data Age: 41 Gender: F Height: 1.63 m Weight: 69.4 kg Last Vital Signs Temp 36.8 C 08/01/21 08:00 Pulse 118 H 08/01/21 08:00 Resp 16 08/01/21 08:00 BP 141/95 H 08/01/21 08:00 Pulse Ox 100 08/01/21 08:00 O2 Del Method Room Air 08/01/21 08:00 Allergies Allergy/AdvReac Type Severity Reaction Status Date / Time Penicillins Allergy Intermediate rash Verified 07/30/21 10:22 Home Medications Medication Instructions Recorded Confirmed Type ferrous sulfate 325 mg (65 mg 325 mg PO DAILY #30 tabs 03/21/21 07/30/21 Rx iron) tablet ondansetron 4 mg disintegrating 4 mg PO Q8H PRN nausea and 03/21/21 07/30/21 Rx tablet vomiting #30 tabs pantoprazole 40 mg tablet,delayed 40 mg PO BID #60 tabs 06/20/21 07/30/21 Rx release fluticasone propionate 50 1 spray intranasal DAILY #9.9 mL 06/28/21 07/30/21 Rx mcg/actuation nasal spray,suspension (Allergy Relief (fluticasone)) lorazepam 0.5 mg tablet (Ativan) 0.5 mg PO DAILY PRN panic 06/28/21 07/30/21 Rx attack(s) #20 tabs furosemide 20 mg tablet 20 mg PO DAILY PRN Edema 07/30/21 07/30/21 History Laboratory Tests 07/31/21 07/31/21 08/01/21 12:39 12:39 04:45 WBC RBC Hgb Hct MCV MCH MCHC RDW Plt Count MPV % Immature Plt Fraction Sodium 138 mmol/L mmol/L (137-145) Potassium 3.3 mmol/L L mmol/L (3.4-5.0) Chloride 109 mmol/L H mmol/L (98-107) Carbon Dioxide 20 mmol/L L mmol/L (22-30) Anion Gap 9 mmol/L mmol/L (8-16) BUN 7 mg/dL mg/dL (7-17) Creatinine 0.60 mg/dL L mg/dL (0.7-1.0) Estim Creat Clear Calc 92 ml/min ml/min Estimated GFR > 60 (59 - ) Glucose 212 mg/dL H mg/dL (65-110) Calcium 8.5 mg/dL mg/dL (8.4-10.2) Phosphorus < 0.5 mg/dL L mg/dL < 0.5 mg/dL L mg/dL (2.5-4.5) (2.5-4.5) Magnesium 2.6 mg/dL H mg/dL (1.6-2.3) Total Bilirubin AST ALT Alkaline Phosphatase Total Protein Albumin 4.2 g/dL g/dL (3.5-5.1) 08/01/21 08/01/21 04:50 04:50 WBC 2.0 K/mm3 L K/mm3 (4.5-10.0) RBC 3.11 M/mm3 L M/mm3 (4.2-5.4) Hgb 9.0 g/dL L g/dL (12.0-15.0) Hct 27.7 % L % (37.0-47.0) MCV 89.1 fl fl (80-100) MCH 28.9 pg pg (26-34) MCHC 32.5 g/dl g/dl (32-36) RDW 17.6 % H % (11.5-14.5) Plt Count 31 k/mm3 L k/mm3 (150-375) MPV 11.0 fl H fl (7.4-10.4) % Immature Plt Fraction 6.6 % % (0.9-11.2) Sodium 137 mmol/L mmol/L (137-145) Potassium 2.8 mmol/L L* mmol/L (3.4-5.0) Chloride 112 mmol/L H mmol/L (98-107) Carbon Dioxide 18 mmol/L L mmol/L (22-30) Anion Gap 7 mmol/L L mmol/L (8-16) BUN 3 mg/dL L mg/dL (7-17) Creatinine 0.50 mg/dL L mg/dL (0.7-1.0) Estim Creat Clear Calc 109 ml/min ml/min Estimated GFR > 60 (59 - ) Glucose 134 mg/dL H mg/dL (65-110) Calcium 7.7 mg/dL L mg/dL (8.4-10.2) Phosphorus Magnesium 2.0 mg/dL mg/dL (1.6-2.3) Total Bilirubin 3.1 mg/dL H mg/dL (0.2-1.3) AST 171 U/L H U/L (14-36) ALT 47 U/L H U/L (6-35) Alkaline Phosphatase 148 U/L H U/L (38-126) Total Protein 6.0 g/dL L g/dL (6.3-8.2) Albumin 3.3 g/dL L g/dL (3.5-5.1) Patient hx anesthesia problems: none Family hx anesthesia problems: none Results Review: All pre-operative results and documents have been reviewed as part o
[2021-08-01] MEDS: LACTATED RINGERS 1,000 ML 150 ML IV CONT (11:33)
[2021-08-01] MEDS: BENZOCAINE (*SP) 60 ML SPRAY CAN (HURRICAINE) 1 SPRAY MUCOUS MEM (11:52)
[2021-08-01] MEDS: HYDROcodone/acetaminophen (*CRX) 5-325 MG TABLET 1 TAB PO (13:21)
--- NOTE | 2021-08-01 13:40 | PM.IMPN ---
Progress Note: A&P Assessment and Plan (1) Ketoacidosis: Code(s): E87.2 - Acidosis Status: Acute Assessment and Plan: Patient with severe alcoholic ketoacidosis with lactic acidosis. ABG 7.199/10.5/161 on room air. lactic acid was 4.1. BHOB was 12. Urine ketones 4+. She was exhibiting signs of metabolic encephalopathy with confusion, nystagmus, and ataxic. Patient has not been able to eat due to nausea and vomiting. She was placed on high-dose thiamine. MR brain showing hepatic encephalopathy. Patient states that she no longer drinks alcohol. Patient still with the metabolic nongap acidosis. Continue IV fluids until eating better. Consider bicarb if persistent. (2) Electrolyte abnormality: Code(s): E87.8 - Other disorders of electrolyte and fluid balance, not elsewhere classified Status: Acute Assessment and Plan: Potassium 2.9 on admission. Mag dropped to 1.3 and Phos was low at <0.5. Electrolytes being replaced. Suspect related to GI loss. Phos low due to re-feeding syndrome. Need to make sure she has access to food. Continue to follow electrolytes and replace as needed. (3) Pancytopenia: Code(s): D61.818 - Other pancytopenia Status: Acute Assessment and Plan: WBC was normal on admission but dropped to 2000. Hgb down to 9 range felt more likely related to the IV fluids. Plt count was 71K on admission but dropped to 20-30K felt to be consumptive and from her cirrhosis. Follow closely and transfuse if needed. (4) Hematemesis: Code(s): K92.0 - Hematemesis Status: Acute Assessment and Plan: Patient was having n/v that progressed to to black emesis. Hgb was 12 but suspect this was hemoconcentrated. Hgb dropped to 9 range and has remained mostly stable. GI consulted and she was started on PPI. She had an EGD showing severe ulcerative esophagitis and diffuse, nodular gastritis. No further hematemesis has been noted. Diet started. Apprciate GI input. (5) Lactic acid acidosis: Code(s): E87.2 - Acidosis Status: Acute Assessment and Plan: As above. She was given IV fluids and reflex lactic acid level was normal. Follow (6) Increased ammonia level: Code(s): R79.89 - Other specified abnormal findings of blood chemistry Status: Acute Assessment and Plan: Patient has an elevated ammonia level to 198 most likely secondary to her decompensated liver cirrhosis. She was placed on Lactulose and she received treatment otherwise as above. Repeat level normal now and her mental status is improved. Continue Lactulose. She is having loose stools so will back off on frequency. (7) Acute kidney injury: Code(s): N17.9 - Acute kidney failure, unspecified Status: Acute Assessment and Plan: Mild CUATE present on admission with Cr 1.2. Related to dehydration. Resolved (8) Alcoholic cirrhosis of liver: Qualifiers: Ascites presence: unspecified Qualified Code(s): K70.30 - Alcoholic cirrhosis of liver without ascites Code(s): K70.30 - Alcoholic cirrhosis of liver without ascites Status: Acute Assessment and Plan: Patient with acute on chronic liver failure. She has increased LFTs compatible alcoholic hepatitis. Also pancytopenic secondary to hypersplenism. CT scan does show hepatosplenomegaly but no significant ascites noted. She is on Lasix p.r.n. at home. Will continue to hold this for now. Will back off on her IV fluids today. Will see how she does with her diet. Stop fluids if she is eating and drinking normally. Plan Code status - Full DVT prophylaxis - SCDs Subjective Date/time seen: 08/01/21 13:40 Interval history: 41yo female with hx of alcoholic cirrhosis, pancreatitis and GERD here for nausea and vomiting. Assuming care. Chart reviewed. She is back from EGD now. She complains of left sided rib pain and epigastric burning pain. She does have brusin
[2021-08-01 14:25] LABS: Anion Gap 10 mmol/L (8-16); Calcium 8.1 mg/dL (8.4-10.2); Carbon Dioxide 16 mmol/L (22-30); Chloride 115 mmol/L (98-107); Estimated CRCL calculation 132 ml/min; Estimated Glomerular Filt Rate > 60; Glucose 90 mg/dL (65-110); Sodium 141 mmol/L (137-145)
[2021-08-01 14:53] LABS: Blood Urea Nitrogen < 2 mg/dL (7-17); Phosphorus < 1.0 mg/dL (2.5-4.5)
[2021-08-01] MEDS: DEXTROSE 5%/0.9% SOD CHL 1,000 ML 70 ML IV CONT (16:37)
[2021-08-01] MEDS: levoFLOXacin 500 MG/D5W 100 ML 500 MG/100 ML BAG 100 MG IVPB (17:42)
--- NOTE | 2021-08-01 20:23 | PC.NURSE ---
patient has decided to leave [facility]. patient was advised that she is not ready to leave. patient still insisted and stated that she wanted to go home and then proceeded to say that she would [facility]. patient signed [facility] papers and iv's removed. telemetry removed from patient. patients fiance is with her and is her transportation. patient is currently walking out the door now. minna ross aprn and janessa charge nurse , and warehouse receiving supervisor are aware.
[2021-08-02 11:06] LABS: Vitamin D 1,25 (OH)2 Total 31 pg/mL (18-72); Vitamin D2 1,25 (OH)2 <8 pg/mL; Vitamin D3 1,25 (OH)2 31 pg/mL
--- NOTE | 2021-08-04 11:22 | PM.DS ---
DS: Admitting Diagnosis Discharge Date 08/01/21 Admitting Diagnosis Nausea and Vomiting DS: Discharge Diagnosis Discharge Diagnosis (1) Ketoacidosis: Code(s): E87.2 - Acidosis Status: Acute Assessment and Plan: Patient with severe alcoholic ketoacidosis with lactic acidosis. ABG 7.199/10.5/161 on room air. lactic acid was 4.1. BHOB was 12. Urine ketones 4+. She was exhibiting signs of metabolic encephalopathy with confusion, nystagmus, and ataxic. Patient had not been able to eat due to nausea and vomiting. She was placed on high-dose thiamine. MR brain showing hepatic encephalopathy. Ammonia level was 189. Patient states that she no longer drinks alcohol. She was treated with IV fluids and started on Lactulose. Her mental status normalized. Diet started. Her Lactic acid normalized. Patient had improvement but still with a metabolic nongap acidosis. She signed out against medical advise. (2) Acute hepatic encephalopathy: Code(s): K72.00 - Acute and subacute hepatic failure without coma Status: Acute Assessment and Plan: Patient has an elevated ammonia level to 198 most likely secondary to her decompensated liver cirrhosis and GI bleed. She was placed on Lactulose and she received treatment otherwise as above. Repeat ammonia level normalized and her mental status improved. (3) Electrolyte abnormality: Code(s): E87.8 - Other disorders of electrolyte and fluid balance, not elsewhere classified Status: Acute Assessment and Plan: Potassium was 2.9 on admission. Mag dropped to 1.3 and Phos was low at <0.5. Suspect related to GI loss. Phos low due to re-feeding syndrome. Electrolytes were replaced regularly. (4) Pancytopenia: Code(s): D61.818 - Other pancytopenia Status: Acute Assessment and Plan: WBC was normal on admission but dropped to 2000 (no differential on this CBC). Hgb down to 9 range felt related to the GI bleed and IV fluids. Plt count was 71K on admission but dropped to 20-30K felt to be consumptive and from her cirrhosis. INR 1.4 with PT 16.2. PTT normal. B12/Folate normal. (5) Hematemesis: Code(s): K92.0 - Hematemesis Status: Acute Assessment and Plan: Patient was having n/v that progressed to to black emesis. Hgb was 12 but suspect this was hemoconcentrated. Hgb dropped to 9 range and has remained mostly stable. GI was consulted and she was started on PPI. She had an EGD showing severe ulcerative esophagitis and diffuse, nodular gastritis. No further hematemesis was noted. Diet started. The patient's GI bleed was present on admission with bloody/coffee-ground emesis felt related to the severe esophagitis and possibly from the gastritis. No further episodes of bleeding noted. Appreciated GI input. (6) GI bleed: Qualifiers: GI bleed type/associated pathology: gastric ulcer Qualified Code(s): K25.4 - Chronic or unspecified gastric ulcer with hemorrhage Code(s): K92.2 - Gastrointestinal hemorrhage, unspecified Status: Acute Assessment and Plan: As above. GI blood loss related to esophagitis and possibly gastritis. (7) Acute blood loss anemia: Code(s): D62 - Acute posthemorrhagic anemia Status: Acute Assessment and Plan: As above (8) Lactic acid acidosis: Code(s): E87.2 - Acidosis Status: Acute Assessment and Plan: As above. She was given IV fluids and reflex lactic acid level was normal. (9) Increased ammonia level: Code(s): R79.89 - Other specified abnormal findings of blood chemistry Status: Acute Assessment and Plan: As above. Related to the GI bleed and underlying cirrhosis. (10) Acute kidney injury: Code(s): N17.9 - Acute kidney failure, unspecified Status: Acute Assessment and Plan: Mild CUATE present on admission with Cr 1.2. Related to dehydration. Resolved with IV fluids
== END 2021-08-01 20:28 | disposition left against medical advice (07) | DRG 422 ==
LOC: ANHED 10:47 → ANH2MED 12:22 → ANHIMU 13:14
PROVIDERS: Family Medicine; Internal Medicine; Internal Medicine Gastroenterology; Nurse Practitioner Adult Health; Admitting Provider Internal Medicine; Emergency Provider Emergency Medicine; PCP Nurse Practitioner Family; Visit Provider Internal Medicine
PROC: 0DJ08ZZ Inspection of Upper Intestinal Tract, Via Natural or Artificial Opening Endoscopic (ICD-10-PCS; CPT 43235; principal; 2021-08-01 13:00)
DX: E87.2 Acidosis (principal); K29.01 Acute gastritis with bleeding; K20.91 Esophagitis, unspecified with bleeding; K29.21 Alcoholic gastritis with bleeding; D62 Acute posthemorrhagic anemia; K72.90 Hepatic failure, unspecified without coma; Z87.11 Personal history of peptic ulcer disease; K70.30 Alcoholic cirrhosis of liver without ascites; F12.90 Cannabis use, unspecified, uncomplicated; K70.11 Alcoholic hepatitis with ascites; F41.9 Anxiety disorder, unspecified; R73.03 Prediabetes; K21.9 Gastro-esophageal reflux disease without esophagitis; B19.20 Unspecified viral hepatitis C without hepatic coma; E03.9 Hypothyroidism, unspecified; F10.10 Alcohol abuse, uncomplicated; Y90.9 Presence of alcohol in blood, level not specified; E87.6 Hypokalemia; N17.9 Acute kidney failure, unspecified; E86.0 Dehydration; D61.818 Other pancytopenia; E78.1 Pure hyperglyceridemia
CPT/HCPCS: 36415; 36600; 70551; 71045; 74176; 80048; 80053; 80061; 80069; 80307; 81001; 82010; 82140; 82525; 82607; 82652; 82746; 82803; 82805; 82948; 83605; 83615; 83690; 83735; 84100; 84132; 84311; 84439; 84443; 85014; 85018; 85025; 85027; 85055; 85610; 85730; 86850; 86900; 86901; 87040; 88305; 88342; 96361; 96365; 96366; 96367; 96374; 96375; 96376; 99285; A9270; C9113; G0378; G0379; J1200; J1956; J2060; J2270; J2405; J2550; J2704; J2765; J3411; J3475; J3480; J7030; J7040; J7042; J7050; J7060; J7120